=== PATIENT | female | born 1960 | race African-American/Black ===

== ENCOUNTER 2017-08-12 13:56 | Inpatient (IN) | payer OTHER ==
--- NOTE | 2017-08-12 14:22 | ED Physician Chart ---
ED Chief Complaint/HPI - Patient Information Date Seen:: 08/12/17 Time Seen:: 14:22 Chief Complaint:: Left ear pain bleeding hearing loss. Seizures History of Present Illness:: 57 yo female was brought from [facility] to ER due to new onset of left ear pain, bleeding and hearing loss. Denied any fall or head trauma. The patient had history of seizures with last seizure a week ago. Awake, alert and oriented times 3 upon black pickler. At ER, the patient stated funny taste in mouth and seizures began, off and on, total 25 minutes. ED Review of Systems - Review of Systems General/Constitutional: No fever, Weakness Skin: No bruising Head: No headache Eyes: No pain ENT: Other (Left ear hearing loss) Neck: No neck pain Cardio Vascular: No chest pain Pulmonary: No SOB GI: No nausea, No vomiting Musculoskeletal: No bone or joint pain Psychiatric: Prior psych history Neurological: Weakness, Seizure ED Past Medical History - Past Medical History Past Medical History: HTN, Asthma/COPD, CVA/TIA, Dyslipidemia, PUD/GERD, Seizures, Other (peripheral neuropathy, unsteady gait) Social History: Non Smoker, No Alcohol, No Drug Use Surgical History: other (Left AKA) Psychiatricy History: Depression Family Medical History - Family Member Mother Sister History Unknown: Yes Ethnicity: Unknown Living Status: Unknown Hx Family Cancer: (UNKNOWN) Hx Family Coronary Artery Disease: (UNKNOWN) Hx Family Congestive Heart Failure: (UNKNOWN) Hx Family Hypertension: (UNKNOWN) Hx Family Stroke: (UNKNOWN) Hx Family Diabetes: (UNKNOWN) Hx Family Seizures: (UNKNOWN) Hx Family Dementia: (UNKNOWN) Hx Family AIDS: (UNKNOWN) Hx Family COPD: (UNKNOWN) Hx Family Hepatitis: (UNKNOWN) Hx Family Psychiatric Problems: (UNKNOWN) Hx Family Tuberculosis: (UNKNOWN) Other Medical History: UNKNOWN ED Physical Exam - Physical Examination General/Constitutional: Awake Head: Atraumatic Eyes: PERRL Skin: No ecchymosis ENMT: Nasal exam nl Other ENMT comments:: Left ear tenderness with purulent drainage, impaired hearing left ear Neck: No nuchal rigidity Respiratory: No Wheeze/Rhonchi/Rales Cardio Vascular: RRR, No murmur, gallop, rubs, NL S1 S2 GI: No tenderness/rebounding/guarding Other Extremities comments:: No edema. Left AKA Other Neuro/Psych comments:: Right side weakness ED Labs/Radiology/EKG Results - Radiology Results Results: CXR: no focal consolidation CT head: left parietal and occipital encephalomalacia ED Assessment - Assessment General Assessment: Seizure Otitis media, left ear UTI Right hemiparesis Assessment/Comments:: CMP, CBC, UA Keppra level CXR, EKG CT head without contrast Ativan IM and IV Admit to ICU ED Septic Shock - . Is Septic Shock (SBP<90, OR Lactate>4 mmol\L) present?: No ED Reassessment (Disposition) - Reassessment Reassessment Condition:: Unchanged - Patient Disposition Discharge/Transfer:: Acute Care w/in this hosp Admitting Medical Physician:: Dann Sands ED Discharge Plan - Patient Disposition Admit/Discharge/Transfer: Acute Care w/in this hosp Condition at Disposition: Stable
[2017-08-12 15:41] LABS: % BASOPHILS 1.3 % (0.0-2.0); % EOSINOPHILS 6.5 % (0.0-5.0); % MONOCYTES 6.8 % (2.0-10.0); % NEUTROPHILS 58.4 % (40.0-80.0); BASOPHILE ABSOLUTE 0.1 Th/cumm (0-0.2); EOSINOPHILE ABSOLUTE 0.3 Th/cmm (0.1-0.4); HEMATOCRIT 34.2 % (41.0-60); HEMOGLOBIN 11.2 gm/dL (12-16); LYMPHOCYTE ABSOLUTE 1.3 Th/cmm (1.5-3.0); MEAN CELL VOLUME 89.1 fl (81-100); MEAN CORPUSCULAR HGB CONC 32.6 pg (28.0-36.0); MEAN PLATELET VOLUME 7.9 fl; MONOCYTE ABSOLUTE 0.3 Th/cmm (0.3-1.0); NEUTROPHILE ABSOLUTE 2.8 Th/cmm (1.8-8.0); PLATELET COUNT 165 Th/cmm (150-400); RED BLOOD COUNT 3.84 Mil/cmm (3.80-5.10); RED CELL DISTRIBUTION WIDTH 17.3 % (11.5-20.0); WHITE BLOOD COUNT 4.8 Th/cmm (4.8-10.8)
[2017-08-12 16:28] LABS: ALB/GLOB RATIO 1.2 (1.0-1.8); ALBUMIN 3.8 gm/dL (3.7-5.3); ALKALINE PHOSPHATASE 173 U/L (34-104); ANION GAP 14.6 (7.0-16.0); BILIRUBIN,TOTAL 0.2 mg/dL (0.3-1.0); BUN - UREA NITROGEN 18 mg/dL (7-25); CALCIUM SERUM 9.9 mg/dL (8.6-10.3); CHLORIDE 105 mEq/L (98-107); CREATININE - SERUM 0.7 mg/dL (0.6-1.2); GFR AFRICAN-AMERICAN > 60.0 ml/min (>90); GFR NON AFRICAN-AMERICAN > 60.0 ml/min; GLUCOSE 93 mg/dL (70-105); POTASSIUM SERUM 4.6 mEq/L (3.5-5.1); SGOT 15 U/L (13-39); SGPT/ALT 9 U/L (7-52); SODIUM SERUM 137 mEq/L (136-145)
[2017-08-12] MEDS ORDERED: cefTRIAXone 1 GM in Sodium Chloride 0.9% 50 ML IV ONE (17:34)
[2017-08-12 17:49] LABS: URINE MICROSCOPIC INDICATED? YES; URINE SOURCE CATH
[2017-08-12] MEDS ORDERED: Levofloxacin 500mg/100mL 500 MG/100 ML BAG IV ONE ×2 (17:50→17:52)
[2017-08-12 18:04] LABS: URINE COLOR YELLOW
[2017-08-12 18:05] LABS: URINE BILIRUBIN NEGATIVE (NEGATIVE); URINE BLOOD MODERATE (NEGATIVE); URINE CLARITY CLOUDY (CLEAR); URINE CLINITEST NEGATIVE (NEGATIVE); URINE GLUCOSE (UA) NEGATIVE (NEGATIVE); URINE ICTOTEST NEGATIVE (NEGATIVE); URINE KETONE NEGATIVE (NEGATIVE); URINE LEUKOCYTE ESTERASE LARGE (NEGATIVE); URINE NITRATE POSITIVE (NEGATIVE); URINE PROTEIN TRACE mg/dL (NEGATIVE); URINE UROBILINOGEN 0.2 E.U./dL (0.2 - 1.0)
[2017-08-12 18:19] LABS: URINE BACTERIA MANY /hpf (NONE SEEN); URINE EPITHELIAL CELLS MODERATE /lpf (FEW); URINE WBC >100 /hpf (0-5)
[2017-08-13] MEDS: Sodium Chloride 0.9% 1,000 ML IV SCH ×2 (02:30→11:42)
[2017-08-13 05:24] VITALS: BP 143/69
--- NOTE | 2017-08-13 09:29 | Diagnostic Imaging Report ---
CHEST X-RAY: AP view INDICATION: Shortness of breath COMPARISON: None FINDINGS: Chronic lung changes are seen with no focal consolidation or effusions. A spinal stimulator is noted. Heart size normal. Atherosclerosis of the aortic arch is noted. Note exam is limited due to rotation. Old right rib fractures are noted. No evidence of pneumothorax. IMPRESSION: No focal consolidation identified Atherosclerotic vascular disease. Postsurgical changes with spinal stimulator noted.
--- NOTE | 2017-08-13 09:59 | Diagnostic Imaging Report ---
Head CT without intravenous contrast Indication: Seizure, left ureter planing bleeding and hearing loss Comparison: None Technique: Axial images were obtained from the vertex to the skull base without IV contrast. Coronal reconstructions were made. Total DLP: [id number], [id number] FINDINGS: Exam is markedly limited as patient difficulty cooperating for the exam. 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 Atrophy is noted. The ventricles and basal cisterns are patent. No mass effect or midline shift. No gross skull fracture or focal soft tissue swelling. There is mucosal thickening of the paranasal sinuses. Mild fluid is seen within the bilateral mastoid air cells. No obvious erosions are identified. IMPRESSION: Limited exam due to motion. No evidence of gross hemorrhage. If clinically indicated short-term follow-up repeat CT exam may be obtained for further assessment Areas of encephalomalacia in the left frontal parietal and occipital lobes attributed to old infarcts. Mild atrophy Mild bilateral mastoid air cell disease. Please correlate with the clinical findings. Final results were administered to the referring team on 08/13/2017.
[2017-08-13] MEDS ORDERED: [UNRECOGNIZED DRUG - OTHER] TP PRN (11:39)
[2017-08-13] MEDS ORDERED: ZINC ACETATE TP PRN (11:39)
[2017-08-13] MEDS ORDERED: DIPHENHYDRAMINE TP PRN (11:39)
[2017-08-13] MEDS ORDERED: Non-Formulary Item 1 EA (Acetaminophen [8 Hour] 650 MG) PO PRN ×2 (11:39→11:57)
[2017-08-13] MEDS ORDERED: Hydrocodone/APAP 5mg/325mg Tab PO PRN (11:39)
--- NOTE | 2017-08-13 12:06 | History and Physical ---
History of Present Illness - HPI Vital Signs: Last Vital Signs Temp 97.3 F 08/13/17 09:00 Pulse 74 08/13/17 09:00 Resp 18 08/13/17 09:10 BP 117/61 08/13/17 09:00 Pulse Ox 99 08/13/17 09:00 Family Medical History - Family Member Mother Sister History Unknown: Yes Ethnicity: Unknown Living Status: Unknown Hx Family Cancer: (UNKNOWN) Hx Family Coronary Artery Disease: (UNKNOWN) Hx Family Congestive Heart Failure: (UNKNOWN) Hx Family Hypertension: (UNKNOWN) Hx Family Stroke: (UNKNOWN) Hx Family Diabetes: (UNKNOWN) Hx Family Seizures: (UNKNOWN) Hx Family Dementia: (UNKNOWN) Hx Family AIDS: (UNKNOWN) Hx Family COPD: (UNKNOWN) Hx Family Hepatitis: (UNKNOWN) Hx Family Psychiatric Problems: (UNKNOWN) Hx Family Tuberculosis: (UNKNOWN) Other Medical History: UNKNOWN - Medications Home Medications: Home Medication Medication Instructions Recorded Type Acetaminophen [8 Hour] 650 mg PO PRN PRN 08/12/17 History Ascorbic Acid [Vitamin C] 500 mg PO BID 08/12/17 History Atorvastatin Calcium [Lipitor] 20 mg PO HS 08/12/17 History Calcium Carb/Vit D 500mg/200U 1 tab PO BID 08/12/17 History [Oscal w/Vitamin D] Diphenhydramine HCl/Zinc Acet 0.1 % TP Q6H PRN 08/12/17 History [Benadryl 1%-0.1%] Duloxetine HCl [Cymbalta] 30 mg PO DAILY 08/12/17 History Gabapentin 300 mg PO TID 08/12/17 History Hydrocodone/APAP 5mg/325mg [[place] 1 tab PO Q4H PRN 08/12/17 History 5mg/325mg] Lactulose 20 gm PO DAILY 08/12/17 History Lamotrigine [Lamictal] 50 mg PO DAILY 08/12/17 History Levetiracetam [Keppra] 500 mg PO BID 08/12/17 History Lorazepam [Ativan] 2 mg IM Q2H PRN 08/12/17 History Melatonin 3 mg PO HS 08/12/17 History Montelukast [Singulair] 10 mg PO DAILY 08/12/17 History Multivitamin w/ Minerals 1 tab PO DAILY 08/12/17 History [Theragran M] PHENobarbital 32.4 mg PO TID 08/12/17 History Phenobarbital 64.8 mg PO TID 08/12/17 History Ranitidine HCl [Ranitidine*] 150 mg PO DAILY 08/12/17 History Rivaroxaban [Xarelto] 20 mg PO DAILY 08/12/17 History - Allergies Allergies/Adverse Reactions: Allergies Allergy/AdvReac Type Severity Reaction Status Date / Time azithromycin Allergy Verified 08/12/17 14:53 carbamazepine Allergy Verified 08/12/17 14:54 Iodinated Contrast Media - Allergy Verified 08/12/17 14:54 IV Dye Penicillins Allergy Verified 08/12/17 14:54 - Assessment Assessment: Current Active Problems Problem Status Onset LEFT EAR PAIN WITH BLOODY DRAINAGE Acute
[2017-08-13] MEDS: Levofloxacin 750mg/150mL 750 MG/150 ML BAG IV SCH (12:57)
[2017-08-13] MEDS: Calcium Carb/Vit D 500 mg/200 U Tab PO SCH (17:18)
[2017-08-13] MEDS: Atorvastatin Calcium 10 MG TAB PO SCH (20:45)
[2017-08-13] MEDS ORDERED: Levofloxacin 500mg/100mL 500 MG/100 ML BAG IV SCH (21:00)
[2017-08-13] MEDS ORDERED: Non-Formulary Item 1 EA (Atorvastatin Calcium [Lipitor] 20 MG) PO SCH (21:00)
[2017-08-13] MEDS ORDERED: Non-Formulary Item 1 EA (Melatonin [Melatonin] 3 MG) PO SCH (21:00)
[2017-08-13] MEDS ORDERED: Levetiracetam 500 mg/5mL 5mL Vial IV ONE (22:29)
[2017-08-13] MEDS ORDERED: Levetiracetam 1000mg/100mL 1,000 MG/100 ML BAG IV ONE (22:30)
--- NOTE | 2017-08-13 23:38 | Consultation ---
DATE OF CONSULTATION: 08/13/2017 NEUROLOGY CONSULT HISTORY OF PRESENT ILLNESS: The patient is a 57-year-old. The patient is in SNF. The patient brought in because the patient has left ear pain. The patient complains of bleeding in the left ear and hearing loss. In the Emergency Room, it is unclear whether the patient's case has been discussed with the ENT or no, but the patient needs an urgent ENT consult. The patient's other history: 1. The patient has history of seizures. She has not had a seizure in last 2 days. Last one was over a week or so ago. The patient has on and off history of seizures. The patient has history of previous stroke. The patient has right side weakness, very little movement of right leg. Seizures since then. 2. History of hypertension. 3. History of asthma. 4. History of chronic obstructive pulmonary disease. 5. The patient has left knee amputation. 6. The patient has a dressing over the right lower leg with cellulitis and at the foot. REVIEW OF SYSTEMS: The patient is awake. Will answer questions. Hearing reduced on the left side. No marked headache. Moving upper extremities, though some weakness in the right. Moves the left leg which has above knee amputation, but on the right leg not much movement. The patient has no chest pain, no shortness of breath, no cough, sputum or hemoptysis. MEDICATIONS: As per reconciliation. Here the patient is on lamotrigine 50 mg daily, Keppra 500 mg b.i.d., phenobarbital 64.8 mg t.i.d. The patient was given antibiotics dose in the Emergency Room. The patient is on Levaquin at the moment. PHYSICAL EXAMINATION: VITAL SIGNS: Temperature 98.4, blood pressure 118/70, pulse is 78. NECK: Supple. No neck bruits. HEART: Sounds S1, S2. LUNGS: Clear. EXTREMITIES: The patient has left above knee amputation. The patient has bandage and dressing on the right leg at the foot and ankle. Some redness in the lower leg. NEUROLOGIC: The patient is awake. She will actually answer questions. She gives me history. She is able to name simple objects, but she did not know what they are. She knew what month and what year. CRANIAL: Pupils react to light. Full eye movement. The patient has reduced hearing on the left side. On examination of the ear, there is some dry kind of crusted on the left ear. Looking at the canal, it seems to be very wet, but I do not see any obvious blood in the canal. The eardrum is very difficult to see, but seems to be very red, almost possible bleeding there, though I do not see any definite perforation. On the right side, the eardrum is okay. Pupils react to light, about 4 mm. No facial weakness. MOTOR: She lifts both arms up. Some weakness on the right. Legs, she will actually lifts the left above-knee amputation leg, but on the right she does not lift too much. Reflex is essentially absent in the right leg and very minimal in the upper extremity. INVESTIGATIONS: CT scan of head is pending. LABORATORY DATA: WBC 4.8, hemoglobin 11.2, platelets 165. Sodium 137, potassium 4.6. UA: WBC over 100. Phenobarbital level is 31. IMPRESSION: 1. Left ear possible infection, possible bleed. 2. Hearing loss, left side. The patient needs an urgent ENT consult. 3. History of seizure. The patient's last seizure was about a week or so ago. We will continue with present medications. 4. History of previous stroke. 5. The patient with UTI sepsis and possible left ear. Recommend ID consult. 6. Left above knee amputation. 7. Chronic obstructive pulmonary disease. PLAN: Continue present treatment and recommendations as above. JOB# [id number]
[2017-08-14] MEDS ORDERED: Non-Formulary Item 1 EA (Lactulose [Lactulose] 20 GM) PO SCH (09:00)
[2017-08-14] MEDS ORDERED: Non-Formulary Item 1 EA (Rivaroxaban [Xarelto] 20 MG) PO SCH (09:00)
[2017-08-14] MEDS: Calcium Carb/Vit D 500 mg/200 U Tab PO SCH ×2 (09:51→17:19)
[2017-08-14] MEDS: Multivitamin w/ Minerals Tab PO SCH (09:52)
[2017-08-14] MEDS: Levetiracetam 1000mg/100mL 1,000 MG/100 ML BAG IV SCH ×2 (09:53→17:21)
[2017-08-14] MEDS: Lactulose 10 Gm/15 mL 30mL UDC PO SCH (09:53)
[2017-08-14] MEDS: Levofloxacin 750mg/150mL 750 MG/150 ML BAG IV SCH (12:20)
[2017-08-14] MEDS ORDERED: SODIUM CHLORIDE 0.9% IV ONE (14:00)
[2017-08-14] MEDS ORDERED: PHENYTOIN IV ONE (14:00)
[2017-08-14] MEDS: Sodium Chloride 0.9% 1,000 ML IV SCH (15:05)
[2017-08-14] MEDS: Hydrocodone/APAP 5mg/325mg Tab PO PRN (15:51)
[2017-08-14] MEDS ORDERED: Meropenem 1 GM in Sodium Chloride 0.9% 100 ML IV SCH (16:30)
[2017-08-14] MEDS ORDERED: Phenytoin 50 mg/mL 5 mL Vial IV SCH (17:00)
[2017-08-14] MEDS: SODIUM CHLORIDE 0.9% IV SCH (20:45)
[2017-08-14] MEDS: PHENYTOIN SODIUM 100 MG IV SCH (20:45)
[2017-08-14] MEDS: Atorvastatin Calcium 10 MG TAB PO SCH (22:39)
[2017-08-14] MEDS: Meropenem 500 MG in Sodium Chloride 0.9% 50 ML IV SCH (22:43)
--- NOTE | 2017-08-15 00:58 | Progress Notes ---
DATE: 08/14/2017 SUBJECTIVE: The patient is lying comfortably in bed and has no complaints at this time. The patient was acutely transferred to the ICU, last seen approximately around 9 or 10 p.m. secondary to generalized seizure lasting approximately 10 minutes. Neurology was called. The patient was given a loading dose of Dilantin and she was started on Dilantin IV b.i.d. Denies fevers and chills. OBJECTIVE: VITAL SIGNS: Temp is 98 degrees, pulse 61, respirations 12, blood pressure 129/63. GENERAL: NAD. HEENT: PERRLA, EOMI. Poor dentition. NECK: Supple. Trachea midline. CARDIOVASCULAR: Regular rate and rhythm. RESPIRATORY: Clear to auscultation bilaterally. No wheezes, rales or rhonchi. ABDOMEN: Soft, nontender, nondistended. Bowel sounds x 4. SKIN: Right lower extremity infected ulceration with surrounding erythema and mild serosanguineous drainage. Left AKA. LABORATORY DATA: No new labs have been ordered. ASSESSMENT AND PLAN: Seizure disorder, Dr. Bear is following. Continue Keppra, Lamictal, lorazepam, phenobarbital and phenytoin. DVT, continue Xarelto. Muscle weakness. Physical therapy evaluation for transfer training. MDRO, E. coli ESBL UTI is resistant to Levaquin, so meropenem has been started one gram b.i.d. Hyperlipidemia, atorvastatin. Polyneuropathy. Continue Cymbalta, gabapentin. Constipation, lactulose. JOB# [id number]
[2017-08-15] MEDS: Meropenem 500 MG in Sodium Chloride 0.9% 50 ML IV SCH ×3 (06:46→22:25)
--- NOTE | 2017-08-15 09:08 | History & Physical ---
ADMIT DATE: CHIEF COMPLAINT: Left ear pain, left ear bleeding, and decreased hearing. HISTORY OF PRESENT ILLNESS: This is a 57-year-old female patient with a past medical history of seizure disorder, hypertension, left AKA and neuropathy, presented to the Emergency Department with a complaint acute left ear pain with bleeding and yellowish drainage. The patient states that the pain started abruptly while at [facility]. She denies fevers, chills or trauma preceding or following the left ear pain and bleeding. I have received a call from charge nurse, Danay at [facility] who requested to have the patient transferred out to [facility] for further evaluation. The patient states that the left ear pain has increased and that she can no longer hear out of her left ear. She is also having multiple seizures since entering the Emergency Department and is currently on Ativan for seizure breakthrough. PAST MEDICAL HISTORY: Hypertension, coronary artery disease, peripheral arterial disease, hyperlipidemia, history of CVA, seizure disorder, peripheral neuropathy, constipation, GERD, unsteady gait, muscle weakness, left AKA, major depressive disorder. FAMILY MEDICAL HISTORY: Unremarkable. SOCIAL HISTORY: Does not smoke, drink, or do drugs. The patient currently lives at [facility] in [place]. MEDICATIONS: Have been reviewed and reconciled. REVIEW OF SYSTEMS: GENERAL: No fevers, chills, or sweats. HEENT: Admits to acute left-sided ear pain described as sharp with ear bleeding and hearing loss on the left ear. She has significant left-sided tenderness. She also has tenderness directly behind the left ear. She has no difficulty swallowing, chewing, and has no visual loss. Denies cough, shortness of breath, or hemoptysis. CARDIOVASCULAR: Denies chest pain, palpitations, orthopnea. GASTROINTESTINAL: Denies abdominal pain, nausea, vomiting. GENITOURINARY: Denies dysuria, frequency, incontinence. MUSCULOSKELETAL: Admits to bilateral muscle weakness and unsteady gait. SKIN: There is a right-sided skin ulceration posterior to her right ankle. NEUROLOGIC: Admits to weakness, confusion, and numbness. PHYSICAL EXAMINATION: VITAL SIGNS: Temperature 97.3, pulse 74, respirations 18, blood pressure 117/61. Her weight is 65 kilograms. GENERAL: NAD. HEENT: PERRLA. EOMI. Poor dentition. There is blood draining from the patient's left ear. The left ear is very tender. The tympanic membrane could not be visualized. NECK: Supple, no JVD. CARDIOVASCULAR: Regular rate and rhythm. RESPIRATORY: CTA bilaterally. No wheezes, rales, or rhonchi. ABDOMEN: Soft, nontender, nondistended. Bowel sounds x 4. EXTREMITIES: Left AKA, right lower extremity chronic venous changes with an ulceration surrounding the right Achilles tendon. SKIN: Warm and dry. PSYCHIATRIC: The patient has a flat affect and appears to be depressed. ASSESSMENT: Acute mastoiditis with possible hearing loss, seizure disorder, hyperlipidemia, neuropathy, allergic rhinitis, hypertension, constipation. The patient has a known DVT. PLAN: Admit to telemetry. Restart patient's home seizure medications. Neurology has been consulted. Ativan for breakthrough seizures. Xarelto for DVT, Singulair for allergic rhinitis. Lorazepam for breakthrough seizures. Levaquin has been increased to 750 mg for possible mastoiditis. Continue Cymbalta for polyneuropathy. Lipitor for hyperlipidemia. JOB# [id number]
[2017-08-15] MEDS: PHENYTOIN SODIUM 100 MG IV SCH ×2 (09:29→23:09)
[2017-08-15] MEDS: SODIUM CHLORIDE 0.9% IV SCH ×2 (09:29→23:09)
[2017-08-15] MEDS: Lactulose 10 Gm/15 mL 30mL UDC PO SCH (09:30)
[2017-08-15] MEDS: Multivitamin w/ Minerals Tab PO SCH (09:31)
[2017-08-15] MEDS: Calcium Carb/Vit D 500 mg/200 U Tab PO SCH ×2 (09:31→18:05)
[2017-08-15] MEDS: Levetiracetam 1000mg/100mL 1,000 MG/100 ML BAG IV SCH ×2 (09:35→16:09)
[2017-08-15] MEDS ORDERED: DEXTROSE 5% IV SCH (15:30)
[2017-08-15] MEDS ORDERED: LEVETIRACETAM IV SCH (15:30)
[2017-08-15 16:22] LABS: % BASOPHILS 0.1 % (0.0-2.0); % EOSINOPHILS 6.8 % (0.0-5.0); % LYMPHOCYTES 16.6 % (20.0-50.0); % MONOCYTES 5.8 % (2.0-10.0); % NEUTROPHILS 70.7 % (40.0-80.0); EOSINOPHILE ABSOLUTE 0.4 Th/cmm (0.1-0.4); HEMATOCRIT 32.8 % (41.0-60); HEMOGLOBIN 10.9 gm/dL (12-16); MEAN CELL VOLUME 89.5 fl (81-100); MEAN CORPUSCULAR HEMOGLOBIN 29.6 pg (27.0-31.0); MEAN CORPUSCULAR HGB CONC 33.1 pg (28.0-36.0); MEAN PLATELET VOLUME 8.1 fl; MONOCYTE ABSOLUTE 0.3 Th/cmm (0.3-1.0); NEUTROPHILE ABSOLUTE 4.2 Th/cmm (1.8-8.0); PLATELET COUNT 149 Th/cmm (150-400); RED BLOOD COUNT 3.67 Mil/cmm (3.80-5.10); RED CELL DISTRIBUTION WIDTH 16.9 % (11.5-20.0)
[2017-08-15 16:29] LABS: WHITE BLOOD COUNT 5.9 Th/cmm (4.8-10.8)
[2017-08-15 16:37] LABS: ANION GAP 11.7 (7.0-16.0); BUN - UREA NITROGEN 10 mg/dL (7-25); CARBON DIOXIDE 24.2 mEq/L (21.0-31.0); CHLORIDE 107 mEq/L (98-107); CREATININE - SERUM 0.5 mg/dL (0.6-1.2); GFR AFRICAN-AMERICAN > 60.0 ml/min (>90); GFR NON AFRICAN-AMERICAN > 60.0 ml/min; GLUCOSE 108 mg/dL (70-105); POTASSIUM SERUM 3.9 mEq/L (3.5-5.1); SODIUM SERUM 139 mEq/L (136-145)
[2017-08-15] MEDS: Atorvastatin Calcium 10 MG TAB PO SCH (23:07)
[2017-08-16] MEDS: Meropenem 500 MG in Sodium Chloride 0.9% 50 ML IV SCH ×3 (05:17→21:45)
--- NOTE | 2017-08-16 07:20 | General Progress Note ---
Subjective - Review of Systems Service Date: 08/16/17 Subjective: Pt seen and eval. Has been exhibiting psychotic behavior at times. Can be very agitated. On IV Meropenam for esbl uti. On keppra for sz. No n,v,d or cp. No pain. No sz last night. Objective - Results Result Diagrams: 08/15/17 15:44 08/15/17 06:00 Recent Labs: Laboratory Last Values WBC 5.9 Th/cmm (4.8-10.8) D 08/15/17 15:44 RBC 3.67 Mil/cmm (3.80-5.10) L 08/15/17 15:44 Hgb 10.9 gm/dL (12-16) L 08/15/17 15:44 Hct 32.8 % (41.0-60) L 08/15/17 15:44 MCV 89.5 fl (81-100) 08/15/17 15:44 MCH 29.6 pg (27.0-31.0) 08/15/17 15:44 MCHC Differential 33.1 pg (28.0-36.0) 08/15/17 15:44 RDW 16.9 % (11.5-20.0) 08/15/17 15:44 Plt Count 149 Th/cmm (150-400) L 08/15/17 15:44 MPV 8.1 fl 08/15/17 15:44 Neutrophils % 70.7 % (40.0-80.0) 08/15/17 15:44 Lymphocytes % 16.6 % (20.0-50.0) L 08/15/17 15:44 Monocytes % 5.8 % (2.0-10.0) 08/15/17 15:44 Eosinophils % 6.8 % (0.0-5.0) H 08/15/17 15:44 Basophils % 0.1 % (0.0-2.0) 08/15/17 15:44 Sodium 139 mEq/L (136-145) 08/15/17 06:00 Potassium 3.9 mEq/L (3.5-5.1) 08/15/17 06:00 Chloride 107 mEq/L (98-107) 08/15/17 06:00 Carbon Dioxide 24.2 mEq/L (21.0-31.0) 08/15/17 06:00 Anion Gap 11.7 (7.0-16.0) 08/15/17 06:00 BUN 10 mg/dL (7-25) 08/15/17 06:00 Creatinine 0.5 mg/dL (0.6-1.2) L 08/15/17 06:00 Est GFR ( Amer) > 60.0 ml/min (>90) 08/15/17 06:00 Est GFR (Non-Af Amer) > 60.0 ml/min 08/15/17 06:00 BUN/Creatinine Ratio 20.0 08/15/17 06:00 Glucose 108 mg/dL (70-105) H 08/15/17 06:00 POC Glucose 99 MG/DL (70 - 105) 08/13/17 21:50 Calcium 10.0 mg/dL (8.6-10.3) 08/15/17 06:00 Total Bilirubin 0.2 mg/dL (0.3-1.0) L 08/12/17 15:33 AST 15 U/L (13-39) 08/12/17 15:33 ALT 9 U/L (7-52) 08/12/17 15:33 Alkaline Phosphatase 173 U/L (34-104) H 08/12/17 15:33 Creatine Kinase 32 U/L (30-223) 08/12/17 15:33 Troponin I 0.01 ng/mL (0.01-0.05) 08/12/17 15:33 B-Natriuretic Peptide 25.1 pg/mL (5.0-100.0) 08/12/17 15:33 Total Protein 7.0 gm/dL (6.0-8.3) 08/12/17 15:33 Albumin 3.8 gm/dL (3.7-5.3) 08/12/17 15:33 Globulin 3.2 gm/dL 08/12/17 15:33 Albumin/Globulin Ratio 1.2 (1.0-1.8) 08/12/17 15:33 Urine Source CATH 08/12/17 17:00 Urine Color YELLOW 08/12/17 17:00 Urine Clarity CLOUDY (CLEAR) H 08/12/17 17:00 Urine pH 6.0 (4.6 - 8.0) 08/12/17 17:00 Ur Specific [place] 1.010 (1.005-1.030) 08/12/17 17:00 Urine Protein TRACE mg/dL (NEGATIVE) 08/12/17 17:00 Urine Glucose (UA) NEGATIVE mg/dL (NEGATIVE) 08/12/17 17:00 Urine Clinitest NEGATIVE mg/dL (NEGATIVE) 08/12/17 17:00 Urine Ketones NEGATIVE mg/dL (NEGATIVE) 08/12/17 17:00 Urine Blood MODERATE (NEGATIVE) H 08/12/17 17:00 Urine Nitrate POSITIVE (NEGATIVE) H 08/12/17 17:00 Urine Bilirubin NEGATIVE (NEGATIVE) 08/12/17 17:00 Urine Ictotest NEGATIVE (NEGATIVE) 08/12/17 17:00 Urine Urobilinogen 0.2 E.U./dL (0.2 - 1.0) 08/12/17 17:00 Ur Leukocyte Esterase LARGE (NEGATIVE) H 08/12/17 17:00 Urine RBC 5-10 /hpf (0-5) H 08/12/17 17:00 Urine WBC >100 /hpf (0-5) H 08/12/17 17:00 Ur Epithelial Cells MODERATE /lpf (FEW) 08/12/17 17:00 Urine Bacteria MANY /hpf (NONE SEEN) H 08/12/17 17:00 Phenytoin 6.7 ug/ml (10.0-20.0) L 08/15/17 15:44 Phenobarbital 31.0 ug/ml (10-40.0) 08/12/17 15:33 - Physical Exam Vitals and I&O: Vital Signs Temp 97.4 F 08/16/17 00:00 Pulse 67 08/16/17 03:00 Resp 13 08/16/17 03:00 BP 92/55 08/16/17 03:00 Pulse Ox 100 08/16/17 03:00 Intake & Output 08/15/17 08/16/17 08/16/17 18:59 06:59 18:59 Intake Total 250 350 Balance 250 350 Weight (lbs) 65.771 kg Intake: Intake, IV Amount 250 50 Levetiracetam 1000mg/ 100 100mL 1,000 mg In 100 ml @ 200 mls/hr IV BID [facility] Rx#:[id number] Meropenem 500 mg In 100 50 Sodium Chloride 0.9% 50 ml @ 100 mls/hr IV Q8HR [facility] Rx#:[id number] Phenytoin 200 mg In 50 Sodium Chloride 0.9% 46 ml @ 100 mls/hr IV Q12HR [facility] Rx#:[id number] Oral 300 Other: # Voids 10 Stool Characteristics Soft Soft Active Medications: Current Medications Acetaminophen (Tylenol) 650 mg PO Q6HR PRN PRN Reason: Pain (Mild) Stop: 10/12/17 12:05 Acetaminophen/Hydrocodone Bitart ([place] 5mg/325mg) 1 tab PO Q4H PRN PRN Reason: mod pain Stop: 10/12/17 11:38 Last Admin: 08/14/17 15:51 Dose: 1 tab Ascorbic Acid (Vitamin C) 500 mg PO BID JULIETH Stop: 10/12/17 16:59 Last Admin: 08/15/17 18:05 Dose: 500 mg Atorvastatin Calcium (Lipitor) 20 mg PO HS JULIETH Stop: 10/12/17 20:59 Last Admin: 08/15/17 23:07 Dose: 20 mg Calcium/Vitamin D (Oscal W/Vitamin D) 1 tab PO BID JULIETH Stop: 10/12/17 16:59 Last Admin: 08/15/17 18:05 Dose: 1 tab Duloxetine HCl (Cymbalta) 30 mg PO DAILY JULIETH PRN Reason: Protocol Stop: 10/13/17 08:59 Last Admin: 08/15/17 09:28 Dose: 30 mg Gabapentin (Neurontin) 300 mg PO TID JULIETH Stop: 10/12/17 13:59 Last Admin: 08/15/17 23:08 Dose: 300 mg Sodium Chloride (Nacl 0.9%) 1,000 mls @ 100 mls/hr IV .Q10H [facility] Stop: 10/11/17 22:28 Last Admin: 08/14/17 15:05 Dose: 100 mls/hr Levetiracetam (Keppra Pb) 1,000 mg in 100 mls @ 200 mls/hr IV BID JULIETH Stop: 10/13/17 08:59 Last Admin: 08/15/17 16:09 Dose: 200 mls/hr Phenytoin 200 mg/ Sodium (Chloride) 50 mls @ 100 mls/hr IV Q12HR JULIETH Stop: 10/13/17 20:59 Last Admin: 08/15/17 23:09 Dose: 100 mls/hr Meropenem 500 mg/ Sodium (Chloride) 50 mls @ 100 mls/hr IV Q8HR [facility] Stop: 10/13/17 20:59 Last Admin: 08/16/17 05:17 Dose: 100 mls/hr Lacosamide (Vimpat) 100 mg PO BID [facility] Stop: 10/14/17 16:59 Last Admin: 08/15/17 18:07 Dose: 100 mg Lactulose (Cephulac) 20 gm PO DAILY JULIETH Stop: 10/13/17 08:59 Last Admin: 08/15/17 09:30 Dose: 20 gm Lamotrigine (Lamictal) 50 mg PO DAILY JULIETH PRN Reason: Protocol Stop: 10/13/17 08:59 Last Admin: 08/15/17 09:31 Dose: 50 mg Lorazepam (Ativan) 1 mg IVP Q2HR PRN; Protocol PRN Reason: FOR SEIZURES Stop: 10/12/17 03:23 Last Admin: 08/16/17 03:36 Dose: 1 mg Lorazepam (Ativan) 2 mg IM Q2H PRN; Protocol PRN Reason: Seizure Stop: 10/12/17 11:38 Last Admin: 08/15/17 18:05 Dose: 2 mg Lorazepam (Ativan) 1 mg IVP Q30M PRN; Protocol PRN Reason: siezure Stop: 10/12/17 22:01 Last Admin: 08/14/17 23:05 Dose: 1 mg Montelukast Sodium (Singulair) 10 mg PO DAILY [facility] Stop: 10/13/17 08:59 Last Admin: 08/15/17 09:31 Dose: 10 mg Phenobarbital (Phenobarbital) 64.8 mg PO TID [facility] Stop: 10/12/17 08:59 Last Admin: 08/15/17 22:55 Dose: 64.8 mg Rivaroxaban (Xarelto) 20 mg PO QDPC [facility] Stop: 10/13/17 08:29 Last Admin: 08/15/17 09:31 Dose: 20 mg General: No acute distress HEENT: Atraumatic, PERRLA, EOMI Neck: Supple, JVD Cardiovascular: Regular rate, Normal S1, Normal S2 Lungs: Clear to auscultation Abdomen: Bowel sounds, Soft Assessment/Plan - Problem List Patient Problems: All Active Problems LEFT EAR PAIN WITH BLOODY DRAINAGE (Acute) - Assessment Assessment: BT Sz Sz DO per hx AME MDRO ESBL UTI Dsylipid - Plan Plan: Dr. Bear following. Pt is stable to be transferred out of ICU. Continue IV Meropenam. FU on labs. Continue IV fluids.
--- NOTE | 2017-08-16 08:16 | Diagnostic Imaging Report ---
Right lower extremity DVT study HISTORY: Pain, history of DVT, history of left leg amputation COMPARISON: None Technique: Longitudinal and transverse sonographic images of the right lower extremity veins were obtained with doppler analysis. FINDINGS: There is normal compressibility, augmentation and phasicity of the right common femoral, superficial femoral, popliteal, and posterior tibial veins. No thrombus is visualized. IMPRESSION: No evidence of thrombus within the right lower extremity veins.
[2017-08-16] MEDS: Atorvastatin Calcium 10 MG TAB PO SCH (08:45)
[2017-08-16] MEDS: Levetiracetam 1000mg/100mL 1,000 MG/100 ML BAG IV SCH ×2 (09:03→17:02)
[2017-08-16] MEDS: Multivitamin w/ Minerals Tab PO SCH (09:30)
[2017-08-16] MEDS: Calcium Carb/Vit D 500 mg/200 U Tab PO SCH ×2 (09:39→17:03)
[2017-08-16] MEDS: Lactulose 10 Gm/15 mL 30mL UDC PO SCH (09:41)
[2017-08-16] MEDS: PHENYTOIN SODIUM 100 MG IV SCH ×2 (09:42→21:45)
[2017-08-16] MEDS: SODIUM CHLORIDE 0.9% IV SCH ×2 (09:42→21:45)
[2017-08-16] MEDS: Valproate Sodium 1,000 MG in Sodium Chloride 0.9% 100 ML IV SCH ×3 (12:59→21:40)
[2017-08-17] MEDS: Meropenem 500 MG in Sodium Chloride 0.9% 50 ML IV SCH ×3 (05:08→20:32)
[2017-08-17 06:22] LABS: % BASOPHILS 0.6 % (0.0-2.0); % EOSINOPHILS 7.9 % (0.0-5.0); % LYMPHOCYTES 21.5 % (20.0-50.0); % MONOCYTES 5.8 % (2.0-10.0); % NEUTROPHILS 64.2 % (40.0-80.0); EOSINOPHILE ABSOLUTE 0.5 Th/cmm (0.1-0.4); HEMATOCRIT 30.5 % (41.0-60); HEMOGLOBIN 10.1 gm/dL (12-16); LYMPHOCYTE ABSOLUTE 1.2 Th/cmm (1.5-3.0); MEAN CELL VOLUME 89.3 fl (81-100); MEAN CORPUSCULAR HEMOGLOBIN 29.5 pg (27.0-31.0); MONOCYTE ABSOLUTE 0.3 Th/cmm (0.3-1.0); NEUTROPHILE ABSOLUTE 3.7 Th/cmm (1.8-8.0); PLATELET COUNT 144 Th/cmm (150-400); RED BLOOD COUNT 3.41 Mil/cmm (3.80-5.10); RED CELL DISTRIBUTION WIDTH 16.7 % (11.5-20.0); WHITE BLOOD COUNT 5.7 Th/cmm (4.8-10.8)
[2017-08-17 06:50] LABS: ANION GAP 7.7 (7.0-16.0); BUN - UREA NITROGEN 13 mg/dL (7-25); CALCIUM SERUM 9.6 mg/dL (8.6-10.3); CARBON DIOXIDE 29.5 mEq/L (21.0-31.0); CHLORIDE 107 mEq/L (98-107); CREATININE - SERUM 0.6 mg/dL (0.6-1.2); GFR AFRICAN-AMERICAN > 60.0 ml/min (>90); GFR NON AFRICAN-AMERICAN > 60.0 ml/min; GLUCOSE 112 mg/dL (70-105); POTASSIUM SERUM 4.2 mEq/L (3.5-5.1); SODIUM SERUM 140 mEq/L (136-145)
[2017-08-17] MEDS: Lactulose 10 Gm/15 mL 30mL UDC PO SCH (09:14)
[2017-08-17] MEDS: Calcium Carb/Vit D 500 mg/200 U Tab PO SCH ×2 (09:15→16:29)
[2017-08-17] MEDS: Multivitamin w/ Minerals Tab PO SCH (09:15)
--- NOTE | 2017-08-17 09:46 | General Progress Note ---
Subjective - Review of Systems Service Date: 08/17/17 Subjective: Pt seen and eval. More calm and collected today. Also awake and alert, which is a positive change from yesterday. No IV access as of now. Sx has been consulted. Pt had a possible BT sz last night. She agrees to take her sz meds orally. On IV Meropenam for esbl uti. Added Vanco today for the Staph. No n,v,d or cp. No pain. Objective - Results Result Diagrams: 08/17/17 06:10 08/17/17 06:10 Recent Labs: Laboratory Last Values WBC 5.7 Th/cmm (4.8-10.8) 08/17/17 06:10 RBC 3.41 Mil/cmm (3.80-5.10) L 08/17/17 06:10 Hgb 10.1 gm/dL (12-16) L 08/17/17 06:10 Hct 30.5 % (41.0-60) L 08/17/17 06:10 MCV 89.3 fl (81-100) 08/17/17 06:10 MCH 29.5 pg (27.0-31.0) 08/17/17 06:10 MCHC Differential 33.0 pg (28.0-36.0) 08/17/17 06:10 RDW 16.7 % (11.5-20.0) 08/17/17 06:10 Plt Count 144 Th/cmm (150-400) L 08/17/17 06:10 MPV 8.0 fl 08/17/17 06:10 Neutrophils % 64.2 % (40.0-80.0) 08/17/17 06:10 Lymphocytes % 21.5 % (20.0-50.0) 08/17/17 06:10 Monocytes % 5.8 % (2.0-10.0) 08/17/17 06:10 Eosinophils % 7.9 % (0.0-5.0) H 08/17/17 06:10 Basophils % 0.6 % (0.0-2.0) 08/17/17 06:10 Sodium 140 mEq/L (136-145) 08/17/17 06:10 Potassium 4.2 mEq/L (3.5-5.1) 08/17/17 06:10 Chloride 107 mEq/L (98-107) 08/17/17 06:10 Carbon Dioxide 29.5 mEq/L (21.0-31.0) 08/17/17 06:10 Anion Gap 7.7 (7.0-16.0) 08/17/17 06:10 BUN 13 mg/dL (7-25) 08/17/17 06:10 Creatinine 0.6 mg/dL (0.6-1.2) 08/17/17 06:10 Est GFR ( Amer) > 60.0 ml/min (>90) 08/17/17 06:10 Est GFR (Non-Af Amer) > 60.0 ml/min 08/17/17 06:10 BUN/Creatinine Ratio 21.7 08/17/17 06:10 Glucose 112 mg/dL (70-105) H 08/17/17 06:10 POC Glucose 99 MG/DL (70 - 105) 08/13/17 21:50 Calcium 9.6 mg/dL (8.6-10.3) 08/17/17 06:10 Total Bilirubin 0.2 mg/dL (0.3-1.0) L 08/12/17 15:33 AST 15 U/L (13-39) 08/12/17 15:33 ALT 9 U/L (7-52) 08/12/17 15:33 Alkaline Phosphatase 173 U/L (34-104) H 08/12/17 15:33 Creatine Kinase 32 U/L (30-223) 08/12/17 15:33 Troponin I 0.01 ng/mL (0.01-0.05) 08/12/17 15:33 B-Natriuretic Peptide 25.1 pg/mL (5.0-100.0) 08/12/17 15:33 Total Protein 7.0 gm/dL (6.0-8.3) 08/12/17 15:33 Albumin 3.8 gm/dL (3.7-5.3) 08/12/17 15:33 Globulin 3.2 gm/dL 08/12/17 15:33 Albumin/Globulin Ratio 1.2 (1.0-1.8) 08/12/17 15:33 Urine Source CATH 08/12/17 17:00 Urine Color YELLOW 08/12/17 17:00 Urine Clarity CLOUDY (CLEAR) H 08/12/17 17:00 Urine pH 6.0 (4.6 - 8.0) 08/12/17 17:00 Ur Specific [place] 1.010 (1.005-1.030) 08/12/17 17:00 Urine Protein TRACE mg/dL (NEGATIVE) 08/12/17 17:00 Urine Glucose (UA) NEGATIVE mg/dL (NEGATIVE) 08/12/17 17:00 Urine Clinitest NEGATIVE mg/dL (NEGATIVE) 08/12/17 17:00 Urine Ketones NEGATIVE mg/dL (NEGATIVE) 08/12/17 17:00 Urine Blood MODERATE (NEGATIVE) H 08/12/17 17:00 Urine Nitrate POSITIVE (NEGATIVE) H 08/12/17 17:00 Urine Bilirubin NEGATIVE (NEGATIVE) 08/12/17 17:00 Urine Ictotest NEGATIVE (NEGATIVE) 08/12/17 17:00 Urine Urobilinogen 0.2 E.U./dL (0.2 - 1.0) 08/12/17 17:00 Ur Leukocyte Esterase LARGE (NEGATIVE) H 08/12/17 17:00 Urine RBC 5-10 /hpf (0-5) H 08/12/17 17:00 Urine WBC >100 /hpf (0-5) H 08/12/17 17:00 Ur Epithelial Cells MODERATE /lpf (FEW) 08/12/17 17:00 Urine Bacteria MANY /hpf (NONE SEEN) H 08/12/17 17:00 Phenytoin 6.7 ug/ml (10.0-20.0) L 08/15/17 15:44 Phenobarbital 31.0 ug/ml (10-40.0) 08/12/17 15:33 - Physical Exam Vitals and I&O: Vital Signs Temp 96.5 F 08/17/17 05:00 Pulse 67 08/17/17 07:56 Resp 14 08/17/17 07:56 BP 92/44 08/17/17 06:00 Pulse Ox 98 08/17/17 07:56 Intake & Output 08/16/17 08/17/17 08/17/17 18:59 06:59 18:59 Intake Total 400 1000 Output Total 1250 800 Balance -850 200 Weight (lbs) 64.41 kg 64.41 kg Intake: Intake, IV Amount 100 Levetiracetam 1000mg/ 100 100mL 1,000 mg In 100 ml @ 200 mls/hr IV BID [facility] Rx#:[id number] Oral 300 800 Other 200 Output: Urine 1250 800 Other: # Bowel Movements 0 Stool Characteristics Soft Soft Active Medications: Current Medications Acetaminophen (Tylenol) 650 mg PO Q6HR PRN PRN Reason: Pain (Mild) Stop: 10/12/17 12:05 Acetaminophen/Hydrocodone Bitart ([place] 5mg/325mg) 1 tab PO Q4H PRN PRN Reason: mod pain Stop: 10/12/17 11:38 Last Admin: 08/14/17 15:51 Dose: 1 tab Ascorbic Acid (Vitamin C) 500 mg PO BID [facility] Stop: 10/12/17 16:59 Last Admin: 08/17/17 09:15 Dose: 500 mg Atorvastatin Calcium (Lipitor) 20 mg PO HS [facility] Stop: 10/12/17 20:59 Last Admin: 08/16/17 08:45 Dose: 20 mg Calcium/Vitamin D (Oscal W/Vitamin D) 1 tab PO BID JULI[facility] Stop: 10/12/17 16:59 Last Admin: 08/17/17 09:15 Dose: 1 tab Duloxetine HCl (Cymbalta) 30 mg PO DAILY JULIETH PRN Reason: Protocol Stop: 10/13/17 08:59 Last Admin: 08/17/17 09:17 Dose: 30 mg Gabapentin (Neurontin) 300 mg PO TID [facility] Stop: 10/12/17 13:59 Last Admin: 08/17/17 09:15 Dose: 300 mg Sodium Chloride (Nacl 0.9%) 1,000 mls @ 100 mls/hr IV .Q10H [facility] Stop: 10/11/17 22:28 Last Admin: 08/14/17 15:05 Dose: 100 mls/hr Levetiracetam (Keppra Pb) 1,000 mg in 100 mls @ 200 mls/hr IV BID [facility] Stop: 10/13/17 08:59 Last Admin: 08/16/17 17:02 Dose: 200 mls/hr Phenytoin 200 mg/ Sodium (Chloride) 50 mls @ 100 mls/hr IV Q12HR [facility] Stop: 10/13/17 20:59 Last Admin: 08/16/17 21:45 Dose: Not Given Meropenem 500 mg/ Sodium (Chloride) 50 mls @ 100 mls/hr IV Q8HR [facility] Stop: 10/13/17 20:59 Last Admin: 08/17/17 05:08 Dose: Not Given Valproate Sodium 1,000 mg/ (Sodium Chloride) 110 mls @ 100 mls/hr IV Q12HR [facility] Stop: 10/15/17 12:59 Last Admin: 08/16/17 21:40 Dose: Not Given Lacosamide (Vimpat) 100 mg PO BID [facility] Stop: 10/14/17 16:59 Last Admin: 08/17/17 09:14 Dose: 100 mg Lactulose (Cephulac) 20 gm PO DAILY [facility] Stop: 10/13/17 08:59 Last Admin: 08/17/17 09:14 Dose: 20 gm Lamotrigine (Lamictal) 50 mg PO DAILY JULIETH PRN Reason: Protocol Stop: 10/13/17 08:59 Last Admin: 08/17/17 09:14 Dose: 50 mg Lorazepam (Ativan) 1 mg IVP Q30M PRN; Protocol PRN Reason: siezure Stop: 10/12/17 22:01 Last Admin: 08/14/17 23:05 Dose: 1 mg Miscellaneous (Vancomycin Iv Per Pharmacy) 1 ea [facility] PRN PRN PRN Reason: PROTOCOL Stop: 10/16/17 09:29 Montelukast Sodium (Singulair) 10 mg PO DAILY JULI[facility] Stop: 10/13/17 08:59 Last Admin: 08/17/17 09:14 Dose: 10 mg Phenobarbital (Phenobarbital) 64.8 mg PO TID [facility] Stop: 10/12/17 08:59 Last Admin: 08/17/17 09:14 Dose: 64.8 mg Rivaroxaban (Xarelto) 20 mg PO QDPC [facility] Stop: 10/13/17 08:29 Last Admin: 08/17/17 09:15 Dose: 20 mg General: Alert, Cooperative, No acute distress HEENT: Atraumatic, PERRLA, EOMI Neck: Supple, JVD Cardiovascular: Regular rate, Normal S1, Normal S2 Lungs: Clear to auscultation Abdomen: Bowel sounds, Soft Other physical findings: Ears: Pt was diagnosed with left ear infection by the neurologist. She states it was been uncomfortable. I looked in her ear with an otoscope. There is no bleeding or discharge. No pain with tugging of the earlobe. Also, TM is visible without any inflammation. Assessment/Plan - Problem List Patient Problems: All Active Problems LEFT EAR PAIN WITH BLOODY DRAINAGE (Acute) - Assessment Assessment: BT Sz Sz DO per hx AME R foot wound infection with Pseudomonas [place] and Staph Aureus MDRO ESBL UTI Dsylipid - Plan Plan: Dr. Bear following. Tried to change IV sz meds to PO while we wait for picc line or central line. Pt initially agreed, but decided to refuse again. I've signed consents again. Pt is awake and alert today, and she agrees to central or picc line. Discussed culture reports with pharmacist. Added Vanco to cover the Staph Aureus. She's on IV Meropenam as well. Also, I looked in her ears with an otoscope. TM are clear BL and there is no discharge or inflammation.
--- NOTE | 2017-08-17 11:52 | Consultation ---
DATE OF CONSULTATION: 08/17/2017 AGE: 57. SEX: Female. PHYSICIAN: Dr. Lewis. RIVETER: Dr. Barnett. TYPE OF THE REPORT: Psychiatric consult. REASON FOR THE CONSULT: Depression. HISTORY OF PRESENT ILLNESS: The patient is a 57-year-old female who was admitted to the hospital because of earache. The patient noticed to be uncooperative and has been depressed and told staff that she wants to . Chart reviewed and interviewed records and discussed condition with the staff. The patient currently is sedated and sleepy and most of the information obtained from my review. The patient has been depressed and she told the staff that she wants to . She also has not been cooperative or compliant with taking her medications because of her depression and unknown other reasons looks like she is giving up on life. No known patient have any history of psychiatric treatment, but she has history of seizure disorder and she is refusing to take seizure medications. Also, ____ that the patient has left ear pain and questionable that she might have some ear bleeding ____. PAST PSYCHIATRIC HISTORY: Not clear if the patient did not have any history of psychiatric treatment, but it seemed that the patient has been very depressed, which might be related to her medical problems. PAST MEDICAL HISTORY: The patient has history of seizure disorder as well as hypertension, asthma and has below left knee amputation. The patient also has right lower leg cellulitis ____. SOCIAL HISTORY: No known alcohol or drug use at this time. MENTAL STATUS EXAM: Could not perform the examination of the patient at this time, because the patient is ____ my questions. ASSESSMENT: PRIMARY DIAGNOSIS: Major depression, severe. TREATMENT PLAN: We will reevaluate the patient for possible ____ patient's medications. Also, we will work with other physicians involved in her treatment in order to obtain full evaluation and also to come to a conclusion about her medical condition and medical problems. Thanks Dr. Lewis and we will follow up with you. JOB# [id number]
--- NOTE | 2017-08-17 12:00 | Progress Notes ---
DATE: SUBJECTIVE: The patient was seen and evaluated, and is resting comfortably in bed. The patient is to be downgraded from the ICU. She did not experience any related seizure activity at this time since moving to the ICU and having Dilantin added. Neurology is following. Continue her home medications for seizures. OBJECTIVE: VITAL SIGNS: Temperature 96.6, pulse 63, blood pressure 115/50, and the respiratory rate is 16. GENERAL: NAD. HEENT: PERRLA, EOMI. Poor dentition. NECK: Supple. Trachea midline. CARDIOVASCULAR: Regular rate and rhythm. RESPIRATORY: CTA bilaterally. No wheezes, rales or rhonchi. ABDOMEN: Soft, nontender, nondistended. Bowel sounds x 4. SKIN: The right lower extremity has small superficial ulcerations with surrounding erythema and clear drainage, and the foot is very tender to palpation. LABORATORY DATA: No recent labs have been able to be drawn because the patient has refused. ASSESSMENT AND PLAN: Seizure disorder. Dr. Bear is following. Continue Keppra, Lamictal, lorazepam, phenobarbital, and phenytoin. The patient has a history of DVT, continue Xarelto. Muscle weakness. Physical therapy for transfer training. She has MDRO, E coli, ESBL UTI and she is currently on meropenem; hyperlipidemia, atorvastatin; polyneuropathy, continue Cymbalta, gabapentin; constipation, lactulose; right lower extremity foot ulceration, aerobic and anaerobic cultures were taken. Localized wound care has been ordered. Ultrasound arterial and venous have been ordered to assess the patient's blood flow and see if the patient also has any underlying unknown DVTs. JOB# [id number]
--- NOTE | 2017-08-17 13:43 | Progress Notes ---
DATE: 08/16/2017 SUBJECTIVE: The patient in ICU. The patient had recurrent seizures; however, seizure somewhat unusual. The patient will say before the seizure that she is going to have one, then has seizures kind of unusual movements. No tongue biting. The patient then subsequent to the seizure is awake, alert. She is able to talk okay afterwards. She has number of days. The patient on multiple medications at the moment. OBJECTIVE: VITAL SIGNS: Temperature 98.4, blood pressure 130/70, and pulse 74. NECK: Supple. No neck bruits. Cardiovascular: Heart sounds S1 and S2. LUNGS: Clear. NEUROLOGICAL: Awake, alert, ____. She answers questions appropriately. Speech normal. MOTOR: She will lift both arms and she lifts both legs up. ASSESSMENT AND PLAN: Question of possible seizures though question of possible pseudoseizure. We will continue present medications including Depacon and Keppra. I am going to hold of Ativan for the time being. JOB# [id number]
[2017-08-17] MEDS: PHENYTOIN SODIUM 100 MG IV SCH ×2 (14:13→20:46)
[2017-08-17] MEDS: SODIUM CHLORIDE 0.9% IV SCH ×2 (14:13→20:46)
[2017-08-17] MEDS: Valproate Sodium 1,000 MG in Sodium Chloride 0.9% 100 ML IV SCH ×2 (14:14→22:00)
--- NOTE | 2017-08-17 14:17 | Diagnostic Imaging Report ---
CHEST X-RAY: AP view INDICATION: Pain rule out pneumothorax COMPARISON: Chest x-ray 08/12/2017 FINDINGS: There is no evidence of a pneumothorax. Chronic lung changes are noted with no focal effusions. There appear to be old right rib fractures. Postsurgical changes are noted. Heart size normal. Atherosclerosis is noted. IMPRESSION: No evidence of a pneumothorax. Chronic lung changes with no focal consolidation identified.
--- NOTE | 2017-08-17 14:18 | Diagnostic Imaging Report ---
CHEST X-RAY: AP view INDICATION: Status post central line placement COMPARISON: Chest x-ray earlier the same day FINDINGS: Left IJ central line has been place with tip in the region of left brachiocephalic vein. No evidence of a gross pneumothorax. No focal consolidation or effusions. Heart size is normal. IMPRESSION: Left IJ central line with tip in the region of left brachiocephalic vein. No gross pneumothorax identified. Chronic lung changes with no focal consolidation identified.
[2017-08-17] MEDS: Levetiracetam 1000mg/100mL 1,000 MG/100 ML BAG IV SCH (14:19)
--- NOTE | 2017-08-17 14:28 | General Progress Note ---
Subjective - Review of Systems Service Date: 08/17/17 Events since last encounter: ulcer over right medial malleolus, present for several months foot is viable, no sign of ischemia suggest local wound care as I do thnk the granulation is excessive Objective - Results Result Diagrams: 08/17/17 06:10 08/17/17 06:10 Recent Labs: Laboratory Last Values WBC 5.7 Th/cmm (4.8-10.8) 08/17/17 06:10 RBC 3.41 Mil/cmm (3.80-5.10) L 08/17/17 06:10 Hgb 10.1 gm/dL (12-16) L 08/17/17 06:10 Hct 30.5 % (41.0-60) L 08/17/17 06:10 MCV 89.3 fl (81-100) 08/17/17 06:10 MCH 29.5 pg (27.0-31.0) 08/17/17 06:10 MCHC Differential 33.0 pg (28.0-36.0) 08/17/17 06:10 RDW 16.7 % (11.5-20.0) 08/17/17 06:10 Plt Count 144 Th/cmm (150-400) L 08/17/17 06:10 MPV 8.0 fl 08/17/17 06:10 Neutrophils % 64.2 % (40.0-80.0) 08/17/17 06:10 Lymphocytes % 21.5 % (20.0-50.0) 08/17/17 06:10 Monocytes % 5.8 % (2.0-10.0) 08/17/17 06:10 Eosinophils % 7.9 % (0.0-5.0) H 08/17/17 06:10 Basophils % 0.6 % (0.0-2.0) 08/17/17 06:10 Sodium 140 mEq/L (136-145) 08/17/17 06:10 Potassium 4.2 mEq/L (3.5-5.1) 08/17/17 06:10 Chloride 107 mEq/L (98-107) 08/17/17 06:10 Carbon Dioxide 29.5 mEq/L (21.0-31.0) 08/17/17 06:10 Anion Gap 7.7 (7.0-16.0) 08/17/17 06:10 BUN 13 mg/dL (7-25) 08/17/17 06:10 Creatinine 0.6 mg/dL (0.6-1.2) 08/17/17 06:10 Est GFR ( Amer) > 60.0 ml/min (>90) 08/17/17 06:10 Est GFR (Non-Af Amer) > 60.0 ml/min 08/17/17 06:10 BUN/Creatinine Ratio 21.7 08/17/17 06:10 Glucose 112 mg/dL (70-105) H 08/17/17 06:10 POC Glucose 99 MG/DL (70 - 105) 08/13/17 21:50 Calcium 9.6 mg/dL (8.6-10.3) 08/17/17 06:10 Total Bilirubin 0.2 mg/dL (0.3-1.0) L 08/12/17 15:33 AST 15 U/L (13-39) 08/12/17 15:33 ALT 9 U/L (7-52) 08/12/17 15:33 Alkaline Phosphatase 173 U/L (34-104) H 08/12/17 15:33 Creatine Kinase 32 U/L (30-223) 08/12/17 15:33 Troponin I 0.01 ng/mL (0.01-0.05) 08/12/17 15:33 B-Natriuretic Peptide 25.1 pg/mL (5.0-100.0) 08/12/17 15:33 Total Protein 7.0 gm/dL (6.0-8.3) 08/12/17 15:33 Albumin 3.8 gm/dL (3.7-5.3) 08/12/17 15:33 Globulin 3.2 gm/dL 08/12/17 15:33 Albumin/Globulin Ratio 1.2 (1.0-1.8) 08/12/17 15:33 Urine Source CATH 08/12/17 17:00 Urine Color YELLOW 08/12/17 17:00 Urine Clarity CLOUDY (CLEAR) H 08/12/17 17:00 Urine pH 6.0 (4.6 - 8.0) 08/12/17 17:00 Ur Specific [place] 1.010 (1.005-1.030) 08/12/17 17:00 Urine Protein TRACE mg/dL (NEGATIVE) 08/12/17 17:00 Urine Glucose (UA) NEGATIVE mg/dL (NEGATIVE) 08/12/17 17:00 Urine Clinitest NEGATIVE mg/dL (NEGATIVE) 08/12/17 17:00 Urine Ketones NEGATIVE mg/dL (NEGATIVE) 08/12/17 17:00 Urine Blood MODERATE (NEGATIVE) H 08/12/17 17:00 Urine Nitrate POSITIVE (NEGATIVE) H 08/12/17 17:00 Urine Bilirubin NEGATIVE (NEGATIVE) 08/12/17 17:00 Urine Ictotest NEGATIVE (NEGATIVE) 08/12/17 17:00 Urine Urobilinogen 0.2 E.U./dL (0.2 - 1.0) 08/12/17 17:00 Ur Leukocyte Esterase LARGE (NEGATIVE) H 08/12/17 17:00 Urine RBC 5-10 /hpf (0-5) H 08/12/17 17:00 Urine WBC >100 /hpf (0-5) H 08/12/17 17:00 Ur Epithelial Cells MODERATE /lpf (FEW) 08/12/17 17:00 Urine Bacteria MANY /hpf (NONE SEEN) H 08/12/17 17:00 Phenytoin 6.7 ug/ml (10.0-20.0) L 08/15/17 15:44 Phenobarbital 31.0 ug/ml (10-40.0) 08/12/17 15:33 - Physical Exam Vitals and I&O: Vital Signs Temp 96.4 F 08/17/17 08:00 Pulse 65 08/17/17 11:00 Resp 13 08/17/17 11:00 BP 121/55 08/17/17 10:00 Pulse Ox 100 08/17/17 11:00 Intake & Output 08/16/17 08/17/17 08/17/17 18:59 06:59 18:59 Intake Total 400 1000 150 Output Total 1250 800 Balance -850 200 150 Weight (lbs) 64.41 kg 64.41 kg Intake: Intake, IV Amount 100 150 Levetiracetam 1000mg/ 100 100 100mL 1,000 mg In 100 ml @ 200 mls/hr IV BID [facility] Rx#:[id number] Phenytoin 200 mg In 50 Sodium Chloride 0.9% 46 ml @ 100 mls/hr IV Q12HR [facility] Rx#:[id number] Oral 300 800 Other 200 Output: Urine 1250 800 Other: # Bowel Movements 0 Stool Characteristics Soft Soft Soft Active Medications: Current Medications Acetaminophen (Tylenol) 650 mg PO Q6HR PRN PRN Reason: Pain (Mild) Stop: 10/12/17 12:05 Acetaminophen/Hydrocodone Bitart ([place] 5mg/325mg) 1 tab PO Q4H PRN PRN Reason: mod pain Stop: 10/12/17 11:38 Last Admin: 08/14/17 15:51 Dose: 1 tab Ascorbic Acid (Vitamin C) 500 mg PO BID [facility] Stop: 10/12/17 16:59 Last Admin: 08/17/17 09:15 Dose: 500 mg Atorvastatin Calcium (Lipitor) 20 mg PO HS [facility] Stop: 10/12/17 20:59 Last Admin: 08/16/17 08:45 Dose: 20 mg Calcium/Vitamin D (Oscal W/Vitamin D) 1 tab PO BID [facility] Stop: 10/12/17 16:59 Last Admin: 08/17/17 09:15 Dose: 1 tab Duloxetine HCl (Cymbalta) 30 mg PO DAILY J[facility]IETH PRN Reason: Protocol Stop: 10/13/17 08:59 Last Admin: 08/17/17 09:17 Dose: 30 mg Gabapentin (Neurontin) 300 mg PO TID [facility] Stop: 10/12/17 13:59 Last Admin: 08/17/17 09:15 Dose: 300 mg Sodium Chloride (Nacl 0.9%) 1,000 mls @ 100 mls/hr IV .Q10H [facility] Stop: 10/11/17 22:28 Last Admin: 08/14/17 15:05 Dose: 100 mls/hr Levetiracetam (Keppra Pb) 1,000 mg in 100 mls @ 200 mls/hr IV BID [facility] Stop: 10/13/17 08:59 Last Admin: 08/17/17 14:19 Dose: 200 mls/hr Phenytoin 200 mg/ Sodium (Chloride) 50 mls @ 100 mls/hr IV Q12HR [facility] Stop: 10/13/17 20:59 Last Admin: 08/17/17 14:13 Dose: 100 mls/hr Meropenem 500 mg/ Sodium (Chloride) 50 mls @ 100 mls/hr IV Q8HR [facility] Stop: 10/13/17 20:59 Last Admin: 08/17/17 05:08 Dose: Not Given Valproate Sodium 1,000 mg/ (Sodium Chloride) 110 mls @ 100 mls/hr IV Q12HR [facility] Stop: 10/15/17 12:59 Last Admin: 08/17/17 14:14 Dose: 100 mls/hr Vancomycin HCl 1 gm/ Sodium (Chloride) 250 mls @ 165 mls/hr IV Q12HR@0900,2100 JULI[facility] Stop: 10/16/17 11:29 Lacosamide (Vimpat) 100 mg PO BID [facility] Stop: 10/14/17 16:59 Last Admin: 08/17/17 09:14 Dose: 100 mg Lactulose (Cephulac) 20 gm PO DAILY [facility] Stop: 10/13/17 08:59 Last Admin: 08/17/17 09:14 Dose: 20 gm Lamotrigine (Lamictal) 50 mg PO DAILY [facility]IETH PRN Reason: Protocol Stop: 10/13/17 08:59 Last Admin: 08/17/17 09:14 Dose: 50 mg Lorazepam (Ativan) 1 mg IVP Q30M PRN; Protocol PRN Reason: siezure Stop: 10/12/17 22:01 Last Admin: 08/14/17 23:05 Dose: 1 mg Miscellaneous (Vancomycin Iv Per Pharmacy) 1 ea [facility] PRN PRN PRN Reason: PROTOCOL Stop: 10/16/17 09:29 Montelukast Sodium (Singulair) 10 mg PO DAILY JULIETH Stop: 10/13/17 08:59 Last Admin: 08/17/17 09:14 Dose: 10 mg Phenobarbital (Phenobarbital) 64.8 mg PO TID J[facility] Stop: 10/12/17 08:59 Last Admin: 08/17/17 09:14 Dose: 64.8 mg Rivaroxaban (Xarelto) 20 mg PO QDPC [facility] Stop: 10/13/17 08:29 Last Admin: 08/17/17 09:15 Dose: 20 mg General: Alert, Cooperative, No acute distress HEENT: Atraumatic, PERRLA, EOMI Neck: Supple, JVD Cardiovascular: Regular rate, Normal S1, Normal S2 Lungs: Clear to auscultation Abdomen: Bowel sounds, Soft Assessment/Plan - Problem List Patient Problems: All Active Problems LEFT EAR PAIN WITH BLOODY DRAINAGE (Acute) Nutritional Asmnt/Malnutr-PDOC - Dietary Evaluation Malnutrition Findings (Please click <Entered> for more info): Nutritional Asmnt/Malnutrition Start: 08/17/17 14: 14 Text: Status: Active Freq: Document 08/17/17 14:14 ROBYN (Rec: 08/17/17 14:23 ROBYN [email or web address]) Nutritional Asmnt/Malnutrition Patient General Information Nutritional Screening High Risk Diagnosis GLENNY, CCHO Pertinent Medical Hx/Surgical Hx HTN, CAD, peripheral arterial disease, hyperlipidemia, CVA, seizure, peripheral neuropathy , constipation, GERD, unsteady gait, muscle weakness, left AKA, major depressive disorder Pertinent Labs 08/17 Na 140, K 4.2, Cl 107, Cr 13, Cr 0.6, Glucose 112 Ca 9. 6 Nutritional Hx/Data Height 1.55 m Height (Calculated Centimeters) 154.9 Current Weight (lbs) 64.41 kg Weight (Calculated Kilograms) 64.4 Weight (Calculated Grams) 42063.1 [place] Body Weight 105 % [place] Body Weight 135 Body Mass Index (BMI) 26.8 Weight Status Overweight GI Symptoms GI Symptoms None Last BM none Food Allergies Yes: shellfish Skin Integrity/Comment: non-pitting edema to right lower extremity pressure area to right loer leg and right dorsal foot, decubitus ulceration to right lower lateral foot
[2017-08-17] MEDS: Sodium Chloride 0.9% 1,000 ML IV SCH (14:50)
[2017-08-17] MEDS: Hydrocodone/APAP 5mg/325mg Tab PO PRN (16:40)
[2017-08-17] MEDS: Atorvastatin Calcium 10 MG TAB PO SCH (20:32)
[2017-08-18] MEDS: Meropenem 500 MG in Sodium Chloride 0.9% 50 ML IV SCH ×3 (05:18→21:42)
[2017-08-18] MEDS: Valproate Sodium 1,000 MG in Sodium Chloride 0.9% 100 ML IV SCH ×2 (08:25→21:45)
[2017-08-18] MEDS: SODIUM CHLORIDE 0.9% IV SCH ×2 (08:26→21:36)
[2017-08-18] MEDS: PHENYTOIN SODIUM 100 MG IV SCH ×2 (08:26→21:36)
[2017-08-18 08:29] LABS: % EOSINOPHILS 8.7 % (0.0-5.0); % LYMPHOCYTES 15.5 % (20.0-50.0); % MONOCYTES 7.4 % (2.0-10.0); % NEUTROPHILS 68.4 % (40.0-80.0); EOSINOPHILE ABSOLUTE 0.4 Th/cmm (0.1-0.4); HEMATOCRIT 29.6 % (41.0-60); HEMOGLOBIN 9.8 gm/dL (12-16); LYMPHOCYTE ABSOLUTE 0.7 Th/cmm (1.5-3.0); MEAN CELL VOLUME 89.6 fl (81-100); MEAN CORPUSCULAR HEMOGLOBIN 29.6 pg (27.0-31.0); MEAN CORPUSCULAR HGB CONC 33.1 pg (28.0-36.0); MEAN PLATELET VOLUME 7.5 fl; MONOCYTE ABSOLUTE 0.3 Th/cmm (0.3-1.0); NEUTROPHILE ABSOLUTE 3.3 Th/cmm (1.8-8.0); PLATELET COUNT 132 Th/cmm (150-400); RED CELL DISTRIBUTION WIDTH 16.1 % (11.5-20.0); WHITE BLOOD COUNT 4.7 Th/cmm (4.8-10.8)
[2017-08-18 08:50] LABS: ANION GAP 3.7 (7.0-16.0); BUN - UREA NITROGEN 10 mg/dL (7-25); CALCIUM SERUM 9.2 mg/dL (8.6-10.3); CARBON DIOXIDE 32.2 mEq/L (21.0-31.0); CHLORIDE 109 mEq/L (98-107); CREATININE - SERUM 0.5 mg/dL (0.6-1.2); GFR AFRICAN-AMERICAN > 60.0 ml/min (>90); GFR NON AFRICAN-AMERICAN > 60.0 ml/min; GLUCOSE 101 mg/dL (70-105); POTASSIUM SERUM 3.9 mEq/L (3.5-5.1); SODIUM SERUM 141 mEq/L (136-145)
[2017-08-18] MEDS: Levetiracetam 1000mg/100mL 1,000 MG/100 ML BAG IV SCH ×2 (09:00→16:44)
[2017-08-18] MEDS: Calcium Carb/Vit D 500 mg/200 U Tab PO SCH ×2 (09:22→16:36)
[2017-08-18] MEDS: Multivitamin w/ Minerals Tab PO SCH (09:22)
[2017-08-18] MEDS: Lactulose 10 Gm/15 mL 30mL UDC PO SCH (09:23)
--- NOTE | 2017-08-18 10:11 | General Progress Note ---
Subjective - Review of Systems Service Date: 08/18/17 Subjective: Pt seen and eval. More calm and collected today. Still refusing care at times. Has IV access now, as anesthesia insert central line on 08/17/16. Sx and wound care seeing her for R medial malleolus ulcer. No sz last night. On IV Meropenam for esbl uti. Added Vanco on 08/17/17 for the Staph. No n,v,d or cp. No pain. Objective - Results Result Diagrams: 08/18/17 08:15 08/18/17 08:15 Recent Labs: Laboratory Last Values WBC 4.7 Th/cmm (4.8-10.8) L 08/18/17 08:15 RBC 3.30 Mil/cmm (3.80-5.10) L 08/18/17 08:15 Hgb 9.8 gm/dL (12-16) L 08/18/17 08:15 Hct 29.6 % (41.0-60) L 08/18/17 08:15 MCV 89.6 fl (81-100) 08/18/17 08:15 MCH 29.6 pg (27.0-31.0) 08/18/17 08:15 MCHC Differential 33.1 pg (28.0-36.0) 08/18/17 08:15 RDW 16.1 % (11.5-20.0) 08/18/17 08:15 Plt Count 132 Th/cmm (150-400) L 08/18/17 08:15 MPV 7.5 fl 08/18/17 08:15 Neutrophils % 68.4 % (40.0-80.0) 08/18/17 08:15 Lymphocytes % 15.5 % (20.0-50.0) L 08/18/17 08:15 Monocytes % 7.4 % (2.0-10.0) 08/18/17 08:15 Eosinophils % 8.7 % (0.0-5.0) H 08/18/17 08:15 Basophils % 0.0 % (0.0-2.0) 08/18/17 08:15 Sodium 141 mEq/L (136-145) 08/18/17 08:15 Potassium 3.9 mEq/L (3.5-5.1) 08/18/17 08:15 Chloride 109 mEq/L (98-107) H 08/18/17 08:15 Carbon Dioxide 32.2 mEq/L (21.0-31.0) H 08/18/17 08:15 Anion Gap 3.7 (7.0-16.0) L 08/18/17 08:15 BUN 10 mg/dL (7-25) 08/18/17 08:15 Creatinine 0.5 mg/dL (0.6-1.2) L 08/18/17 08:15 Est GFR ( Amer) > 60.0 ml/min (>90) 08/18/17 08:15 Est GFR (Non-Af Amer) > 60.0 ml/min 08/18/17 08:15 BUN/Creatinine Ratio 20.0 08/18/17 08:15 Glucose 101 mg/dL (70-105) 08/18/17 08:15 POC Glucose 99 MG/DL (70 - 105) 08/13/17 21:50 Calcium 9.2 mg/dL (8.6-10.3) 08/18/17 08:15 Total Bilirubin 0.2 mg/dL (0.3-1.0) L 08/12/17 15:33 AST 15 U/L (13-39) 08/12/17 15:33 ALT 9 U/L (7-52) 08/12/17 15:33 Alkaline Phosphatase 173 U/L (34-104) H 08/12/17 15:33 Creatine Kinase 32 U/L (30-223) 08/12/17 15:33 Troponin I 0.01 ng/mL (0.01-0.05) 08/12/17 15:33 B-Natriuretic Peptide 25.1 pg/mL (5.0-100.0) 08/12/17 15:33 Total Protein 7.0 gm/dL (6.0-8.3) 08/12/17 15:33 Albumin 3.8 gm/dL (3.7-5.3) 08/12/17 15:33 Globulin 3.2 gm/dL 08/12/17 15:33 Albumin/Globulin Ratio 1.2 (1.0-1.8) 08/12/17 15:33 Urine Source CATH 08/12/17 17:00 Urine Color YELLOW 08/12/17 17:00 Urine Clarity CLOUDY (CLEAR) H 08/12/17 17:00 Urine pH 6.0 (4.6 - 8.0) 08/12/17 17:00 Ur Specific [place] 1.010 (1.005-1.030) 08/12/17 17:00 Urine Protein TRACE mg/dL (NEGATIVE) 08/12/17 17:00 Urine Glucose (UA) NEGATIVE mg/dL (NEGATIVE) 08/12/17 17:00 Urine Clinitest NEGATIVE mg/dL (NEGATIVE) 08/12/17 17:00 Urine Ketones NEGATIVE mg/dL (NEGATIVE) 08/12/17 17:00 Urine Blood MODERATE (NEGATIVE) H 08/12/17 17:00 Urine Nitrate POSITIVE (NEGATIVE) H 08/12/17 17:00 Urine Bilirubin NEGATIVE (NEGATIVE) 08/12/17 17:00 Urine Ictotest NEGATIVE (NEGATIVE) 08/12/17 17:00 Urine Urobilinogen 0.2 E.U./dL (0.2 - 1.0) 08/12/17 17:00 Ur Leukocyte Esterase LARGE (NEGATIVE) H 08/12/17 17:00 Urine RBC 5-10 /hpf (0-5) H 08/12/17 17:00 Urine WBC >100 /hpf (0-5) H 08/12/17 17:00 Ur Epithelial Cells MODERATE /lpf (FEW) 08/12/17 17:00 Urine Bacteria MANY /hpf (NONE SEEN) H 08/12/17 17:00 Vancomycin Trough 19.5 ug/mL (10-20) 08/18/17 08:15 Phenytoin 7.0 ug/ml (10.0-20.0) L 08/18/17 08:15 Lamotrigine NONE DETECTED 08/15/17 15:44 Phenobarbital 31.0 ug/ml (10-40.0) 08/12/17 15:33 - Physical Exam Vitals and I&O: Vital Signs Temp 96.7 F 08/18/17 03:00 Pulse 69 08/18/17 07:00 Resp 12 08/18/17 07:00 BP 111/57 08/18/17 06:00 Pulse Ox 98 08/18/17 07:00 Intake & Output 08/17/17 08/18/17 08/18/17 18:59 06:59 18:59 Intake Total 1060 1310 Output Total 850 2000 Balance 210 -690 Weight (lbs) 64.41 kg 64.41 kg Intake: Intake, IV Amount 760 510 Levetiracetam 1000mg/ 200 100mL 1,000 mg In 100 ml @ 200 mls/hr IV BID [facility] Rx#:[id number] Meropenem 500 mg In 100 100 Sodium Chloride 0.9% 50 ml @ 100 mls/hr IV Q8HR [facility] Rx#:[id number] Phenytoin 200 mg In 100 50 Sodium Chloride 0.9% 46 ml @ 100 mls/hr IV Q12HR [facility] Rx#:[id number] Valproate Sodium 1,000 mg 110 110 In Sodium Chloride 0.9% 100 ml @ 100 mls/hr IV Q12HR [facility] Rx#:[id number] Vancomycin HCl 1 gm In 250 250 Sodium Chloride 0.9% 250 ml @ 165 mls/hr IV Q12HR@ 0900,2100 [facility] Rx#: [id number] Oral 300 800 Output: Urine 850 2000 Other: # Bowel Movements 0 0 Stool Characteristics Soft Soft Soft Active Medications: Current Medications Acetaminophen (Tylenol) 650 mg PO Q6HR PRN PRN Reason: Pain (Mild) Stop: 10/12/17 12:05 Acetaminophen/Hydrocodone Bitart ([place] 5mg/325mg) 1 tab PO Q4H PRN PRN Reason: mod pain Stop: 10/12/17 11:38 Last Admin: 08/17/17 16:40 Dose: 1 tab Ascorbic Acid (Vitamin C) 500 mg PO BID [facility] Stop: 10/12/17 16:59 Last Admin: 08/18/17 09:22 Dose: 500 mg Atorvastatin Calcium (Lipitor) 20 mg PO HS [facility] Stop: 10/12/17 20:59 Last Admin: 08/17/17 20:32 Dose: 20 mg Calcium/Vitamin D (Oscal W/Vitamin D) 1 tab PO BID [facility] Stop: 10/12/17 16:59 Last Admin: 08/18/17 09:22 Dose: 1 tab Duloxetine HCl (Cymbalta) 60 mg PO DAILY [facility] PRN Reason: Protocol Stop: 10/13/17 08:59 Last Admin: 08/18/17 09:23 Dose: 60 mg Gabapentin (Neurontin) 300 mg PO TID [facility] Stop: 10/12/17 13:59 Last Admin: 08/18/17 09:22 Dose: 300 mg Sodium Chloride (Nacl 0.9%) 1,000 mls @ 100 mls/hr IV .Q10H [facility] Stop: 10/11/17 22:28 Last Admin: 08/17/17 14:50 Dose: 100 mls/hr Levetiracetam (Keppra Pb) 1,000 mg in 100 mls @ 200 mls/hr IV BID [facility] Stop: 10/13/17 08:59 Last Infusion: 08/17/17 14:49 Dose: Infused Phenytoin 200 mg/ Sodium (Chloride) 50 mls @ 100 mls/hr IV Q12HR [facility] Stop: 10/13/17 20:59 Last Admin: 08/18/17 08:26 Dose: 100 mls/hr Meropenem 500 mg/ Sodium (Chloride) 50 mls @ 100 mls/hr IV Q8HR [facility] Stop: 10/13/17 20:59 Last Infusion: 08/18/17 05:50 Dose: Infused Valproate Sodium 1,000 mg/ (Sodium Chloride) 110 mls @ 100 mls/hr IV Q12HR [facility] Stop: 10/15/17 12:59 Last Admin: 08/18/17 08:25 Dose: 100 mls/hr Vancomycin HCl 1 gm/ Sodium (Chloride) 250 mls @ 165 mls/hr IV Q12HR@0900,2100 [facility] Stop: 10/16/17 11:29 Last Infusion: 08/17/17 23:35 Dose: Infused Lacosamide (Vimpat) 100 mg PO BID [facility] Stop: 10/14/17 16:59 Last Admin: 08/17/17 16:40 Dose: 100 mg Lactulose (Cephulac) 20 gm PO DAILY [facility] Stop: 10/13/17 08:59 Last Admin: 08/18/17 09:23 Dose: 20 gm Lamotrigine (Lamictal) 50 mg PO DAILY [facility] PRN Reason: Protocol Stop: 10/13/17 08:59 Last Admin: 08/18/17 09:21 Dose: 50 mg Lorazepam (Ativan) 1 mg IVP Q30M PRN; Protocol PRN Reason: siezure Stop: 10/12/17 22:01 Last Admin: 08/18/17 00:30 Dose: 1 mg Miscellaneous (Vancomycin Iv Per Pharmacy) 1 ea PRN PRN PRN Reason: PROTOCOL Stop: 10/16/17 09:29 Montelukast Sodium (Singulair) 10 mg PO DAILY [facility] Stop: 10/13/17 08:59 Last Admin: 08/18/17 09:21 Dose: 10 mg Phenobarbital (Phenobarbital) 64.8 mg PO TID [facility] Stop: 10/12/17 08:59 Last Admin: 08/18/17 09:23 Dose: 64.8 mg Rivaroxaban (Xarelto) 20 mg PO QDPC [facility] Stop: 10/13/17 08:29 Last Admin: 08/18/17 09:22 Dose: 20 mg General: Alert, Cooperative, No acute distress HEENT: Atraumatic, PERRLA, EOMI Neck: Supple, JVD Cardiovascular: Regular rate, Normal S1, Normal S2 Lungs: Clear to auscultation Abdomen: Bowel sounds, Soft Assessment/Plan - Problem List Patient Problems: All Active Problems LEFT EAR PAIN WITH BLOODY DRAINAGE (Acute) - Assessment Assessment: BT Sz Sz DO per hx AME R foot wound infection with Pseudomonas [place] and Staph Aureus MDRO ESBL UTI Dsylipid R medial malleolus ulcer - Plan Plan: Dr. Bear following. Pt seen and eval. More calm and collected today. Still refusing care at times. Has IV access now, as anesthesia insert central line on 08/17/16. Sx and wound care seeing her for R medial malleolus ulcer. Pt refused the US of LE. No sz last night. On IV Meropenam for esbl uti. Added Vanco on 08/17/17 for the Staph. No n,v,d or cp. No pain. Looked in left ear again. There is no discharge or inflammation. No pain in ears. Nutritional Asmnt/Malnutr-PDOC - Dietary Evaluation Malnutrition Findings (Please click <Entered> for more info): Nutritional Asmnt/Malnutrition Start: 08/17/17 14: 14 Text: Status: Complete Freq: Document 08/17/17 14:14 ROBYN (Rec: 08/17/17 14:23 RAYMONDG [email or web address]) Nutritional Asmnt/Malnutrition Patient General Information Nutritional Screening High Risk Diagnosis GLENNY, CCHO Pertinent Medical Hx/Surgical Hx HTN, CAD, peripheral arterial disease, hyperlipidemia, CVA, seizure, peripheral neuropathy , constipation, GERD, unsteady gait, muscle weakness, left AKA, major depressive disorder Subjective Information Pt seen sleeping in bed at the time of visit. Spoke with RN, pt refused breakfast and lunch today, including meds. Per nurse note, pt had late dinner yesterday 08/16, consumed 90% of dinener with assist. Pertinent Medications viatmin C, calcium/vit D, nacl 0.9%, vancomycin Pertinent Labs 08/17 Na 140, K 4.2, Cl 107, Cr 13, Cr 0.6, Glucose 112 Ca 9. 6 Nutritional Hx/Data Height 1.55 m Height (Calculated Centimeters) 154.9 Current Weight (lbs) 64.41 kg Weight (Calculated Kilograms) 64.4 Weight (Calculated Grams) 17181.1 [place] Body Weight 105 % [place] Body Weight 135 Body Mass Index (BMI) 26.8 Weight Status Overweight GI Symptoms GI Symptoms None Last BM none Food Allergies Yes: shellfish Skin Integrity/Comment: non-pitting edema to right lower extremity pressure area to right loer leg and right dorsal foot, decubitus ulceration to right lower lateral foot Estimated Nutritional Goals BEE in Kcals: Using Current wt Calories/Kcals/Kg 25-30 Kcals Calculated 5390-7799 considering bedbound Protein: Using Current wt Protein g/k-1.2 Protein Calculated 65-78 Fluid: ml 2135-8113 Nutritional Problem 1. Problem Problem increased nutrition needs ( calorie and protein) Etiology increased metabolic demand for wound healing Signs/Symptoms: pressure area and decubitus ulceration Malnutrition Alert Protein-Calorie Malnutrition N/A Is there a minimum of two criteria No selected? Query Text:Check all the applicable criteria. A minimum of two criteria are recommended for diagnosis of either severe or non-severe malnutrition. Intervention/Recommendation Comments 1. Continue with current diet as ordered. If PO intake continue low, MD to consider appetite stimulant. 2. Monitor PO intake, wt, labs and skin integrity 3. F/U as high risk in 2-3 days, 08/19-08/20 Expected Outcomes/Goals Expected Outcomes/Goals 1. PO intake to meet at least 75% of nutritional needs. 2. Wt stability, wound to heal , labs to approach WNL.
[2017-08-18] MEDS: Hydrocodone/APAP 5mg/325mg Tab PO PRN (14:32)
--- NOTE | 2017-08-18 18:06 | General Progress Note ---
Subjective - Review of Systems Service Date: 08/18/17 Events since last encounter: arterial doppler ordered Objective - Results Result Diagrams: 08/18/17 08:15 08/18/17 08:15 Recent Labs: Laboratory Last Values WBC 4.7 Th/cmm (4.8-10.8) L 08/18/17 08:15 RBC 3.30 Mil/cmm (3.80-5.10) L 08/18/17 08:15 Hgb 9.8 gm/dL (12-16) L 08/18/17 08:15 Hct 29.6 % (41.0-60) L 08/18/17 08:15 MCV 89.6 fl (81-100) 08/18/17 08:15 MCH 29.6 pg (27.0-31.0) 08/18/17 08:15 MCHC Differential 33.1 pg (28.0-36.0) 08/18/17 08:15 RDW 16.1 % (11.5-20.0) 08/18/17 08:15 Plt Count 132 Th/cmm (150-400) L 08/18/17 08:15 MPV 7.5 fl 08/18/17 08:15 Neutrophils % 68.4 % (40.0-80.0) 08/18/17 08:15 Lymphocytes % 15.5 % (20.0-50.0) L 08/18/17 08:15 Monocytes % 7.4 % (2.0-10.0) 08/18/17 08:15 Eosinophils % 8.7 % (0.0-5.0) H 08/18/17 08:15 Basophils % 0.0 % (0.0-2.0) 08/18/17 08:15 Sodium 141 mEq/L (136-145) 08/18/17 08:15 Potassium 3.9 mEq/L (3.5-5.1) 08/18/17 08:15 Chloride 109 mEq/L (98-107) H 08/18/17 08:15 Carbon Dioxide 32.2 mEq/L (21.0-31.0) H 08/18/17 08:15 Anion Gap 3.7 (7.0-16.0) L 08/18/17 08:15 BUN 10 mg/dL (7-25) 08/18/17 08:15 Creatinine 0.5 mg/dL (0.6-1.2) L 08/18/17 08:15 Est GFR ( Amer) > 60.0 ml/min (>90) 08/18/17 08:15 Est GFR (Non-Af Amer) > 60.0 ml/min 08/18/17 08:15 BUN/Creatinine Ratio 20.0 08/18/17 08:15 Glucose 101 mg/dL (70-105) 08/18/17 08:15 POC Glucose 99 MG/DL (70 - 105) 08/13/17 21:50 Calcium 9.2 mg/dL (8.6-10.3) 08/18/17 08:15 Total Bilirubin 0.2 mg/dL (0.3-1.0) L 08/12/17 15:33 AST 15 U/L (13-39) 08/12/17 15:33 ALT 9 U/L (7-52) 08/12/17 15:33 Alkaline Phosphatase 173 U/L (34-104) H 08/12/17 15:33 Creatine Kinase 32 U/L (30-223) 08/12/17 15:33 Troponin I 0.01 ng/mL (0.01-0.05) 08/12/17 15:33 B-Natriuretic Peptide 25.1 pg/mL (5.0-100.0) 08/12/17 15:33 Total Protein 7.0 gm/dL (6.0-8.3) 08/12/17 15:33 Albumin 3.8 gm/dL (3.7-5.3) 08/12/17 15:33 Globulin 3.2 gm/dL 08/12/17 15:33 Albumin/Globulin Ratio 1.2 (1.0-1.8) 08/12/17 15:33 Urine Source CATH 08/12/17 17:00 Urine Color YELLOW 08/12/17 17:00 Urine Clarity CLOUDY (CLEAR) H 08/12/17 17:00 Urine pH 6.0 (4.6 - 8.0) 08/12/17 17:00 Ur Specific [place] 1.010 (1.005-1.030) 08/12/17 17:00 Urine Protein TRACE mg/dL (NEGATIVE) 08/12/17 17:00 Urine Glucose (UA) NEGATIVE mg/dL (NEGATIVE) 08/12/17 17:00 Urine Clinitest NEGATIVE mg/dL (NEGATIVE) 08/12/17 17:00 Urine Ketones NEGATIVE mg/dL (NEGATIVE) 08/12/17 17:00 Urine Blood MODERATE (NEGATIVE) H 08/12/17 17:00 Urine Nitrate POSITIVE (NEGATIVE) H 08/12/17 17:00 Urine Bilirubin NEGATIVE (NEGATIVE) 08/12/17 17:00 Urine Ictotest NEGATIVE (NEGATIVE) 08/12/17 17:00 Urine Urobilinogen 0.2 E.U./dL (0.2 - 1.0) 08/12/17 17:00 Ur Leukocyte Esterase LARGE (NEGATIVE) H 08/12/17 17:00 Urine RBC 5-10 /hpf (0-5) H 08/12/17 17:00 Urine WBC >100 /hpf (0-5) H 08/12/17 17:00 Ur Epithelial Cells MODERATE /lpf (FEW) 08/12/17 17:00 Urine Bacteria MANY /hpf (NONE SEEN) H 08/12/17 17:00 Vancomycin Trough 19.5 ug/mL (10-20) 08/18/17 08:15 Phenytoin 7.0 ug/ml (10.0-20.0) L 08/18/17 08:15 Lamotrigine NONE DETECTED 08/15/17 15:44 Phenobarbital 31.0 ug/ml (10-40.0) 08/12/17 15:33 - Physical Exam Vitals and I&O: Vital Signs Temp 97.2 F 08/18/17 16:00 Pulse 80 08/18/17 17:42 Resp 17 08/18/17 17:42 BP 110/54 08/18/17 17:42 Pulse Ox 100 08/18/17 17:42 Intake & Output 08/17/17 08/18/17 08/18/17 18:59 06:59 18:59 Intake Total 1060 1310 940 Output Total 850 2000 950 Balance 210 -690 -10 Weight (lbs) 64.41 kg 64.41 kg 64.41 kg Intake: Intake, IV Amount 760 510 560 Levetiracetam 1000mg/ 200 100 100mL 1,000 mg In 100 ml @ 200 mls/hr IV BID [facility] Rx#:[id number] Meropenem 500 mg In 100 100 50 Sodium Chloride 0.9% 50 ml @ 100 mls/hr IV Q8HR [facility] Rx#:[id number] Phenytoin 200 mg In 100 50 50 Sodium Chloride 0.9% 46 ml @ 100 mls/hr IV Q12HR [facility] Rx#:[id number] Valproate Sodium 1,000 mg 110 110 110 In Sodium Chloride 0.9% 100 ml @ 100 mls/hr IV Q12HR [facility] Rx#:[id number] Vancomycin HCl 1 gm In 250 250 250 Sodium Chloride 0.9% 250 ml @ 165 mls/hr IV Q12HR@ 0900,2100 [facility] Rx#: [id number] Oral 300 800 380 Output: Urine 850 2000 950 Other: # Bowel Movements 0 0 0 Stool Characteristics Soft Soft Soft Active Medications: Current Medications Acetaminophen (Tylenol) 650 mg PO Q6HR PRN PRN Reason: Pain (Mild) Stop: 10/12/17 12:05 Acetaminophen/Hydrocodone Bitart ([place] 5mg/325mg) 1 tab PO Q4H PRN PRN Reason: mod pain Stop: 10/12/17 11:38 Last Admin: 08/18/17 14:32 Dose: 1 tab Ascorbic Acid (Vitamin C) 500 mg PO BID [facility] Stop: 10/12/17 16:59 Last Admin: 08/18/17 16:36 Dose: Not Given Atorvastatin Calcium (Lipitor) 20 mg PO HS [facility] Stop: 10/12/17 20:59 Last Admin: 08/17/17 20:32 Dose: 20 mg Calcium/Vitamin D (Oscal W/Vitamin D) 1 tab PO BID [facility] Stop: 10/12/17 16:59 Last Admin: 08/18/17 16:36 Dose: Not Given Duloxetine HCl (Cymbalta) 60 mg PO DAILY [facility] PRN Reason: Protocol Stop: 10/13/17 08:59 Last Admin: 08/18/17 09:23 Dose: 60 mg Gabapentin (Neurontin) 300 mg PO TID [facility] Stop: 10/12/17 13:59 Last Admin: 08/18/17 14:31 Dose: 300 mg Sodium Chloride (Nacl 0.9%) 1,000 mls @ 100 mls/hr IV .Q10H [facility] Stop: 10/11/17 22:28 Last Admin: 08/17/17 14:50 Dose: 100 mls/hr Levetiracetam (Keppra Pb) 1,000 mg in 100 mls @ 200 mls/hr IV BID [facility] Stop: 10/13/17 08:59 Last Admin: 08/18/17 16:44 Dose: 200 mls/hr Phenytoin 200 mg/ Sodium (Chloride) 50 mls @ 100 mls/hr IV Q12HR [facility] Stop: 10/13/17 20:59 Last Infusion: 08/18/17 08:56 Dose: Infused Meropenem 500 mg/ Sodium (Chloride) 50 mls @ 100 mls/hr IV Q8HR [facility] Stop: 10/13/17 20:59 Last Infusion: 08/18/17 15:02 Dose: Infused Valproate Sodium 1,000 mg/ (Sodium Chloride) 110 mls @ 100 mls/hr IV Q12HR [facility] Stop: 10/15/17 12:59 Last Infusion: 08/18/17 09:31 Dose: Infused Vancomycin HCl 1 gm/ Sodium (Chloride) 250 mls @ 165 mls/hr IV Q12HR@0900,2100 [facility] Stop: 10/16/17 11:29 Last Infusion: 08/18/17 16:17 Dose: Infused Lacosamide (Vimpat) 100 mg PO BID [facility] Stop: 10/14/17 16:59 Last Admin: 08/18/17 16:46 Dose: 100 mg Lactulose (Cephulac) 20 gm PO DAILY [facility] Stop: 10/13/17 08:59 Last Admin: 08/18/17 09:23 Dose: 20 gm Lamotrigine (Lamictal) 50 mg PO DAILY [facility] PRN Reason: Protocol Stop: 10/13/17 08:59 Last Admin: 08/18/17 09:21 Dose: 50 mg Lorazepam (Ativan) 1 mg IVP Q30M PRN; Protocol PRN Reason: siezure Stop: 10/12/17 22:01 Last Admin: 08/18/17 00:30 Dose: 1 mg Miscellaneous (Vancomycin Iv Per Pharmacy) 1 ea [facility] PRN PRN PRN Reason: PROTOCOL Stop: 10/16/17 09:29 Montelukast Sodium (Singulair) 10 mg PO DAILY [facility] Stop: 10/13/17 08:59 Last Admin: 08/18/17 09:21 Dose: 10 mg Phenobarbital (Phenobarbital) 64.8 mg PO TID [facility] Stop: 10/12/17 08:59 Last Admin: 08/18/17 14:31 Dose: 64.8 mg Rivaroxaban (Xarelto) 20 mg PO QDPC [facility] Stop: 10/13/17 08:29 Last Admin: 08/18/17 09:22 Dose: 20 mg General: Alert, Cooperative, No acute distress HEENT: Atraumatic, PERRLA, EOMI Neck: Supple, JVD Cardiovascular: Regular rate, Normal S1, Normal S2 Lungs: Clear to auscultation Abdomen: Bowel sounds, Soft Assessment/Plan - Problem List Patient Problems: All Active Problems LEFT EAR PAIN WITH BLOODY DRAINAGE (Acute) Nutritional Asmnt/Malnutr-PDOC - Dietary Evaluation Malnutrition Findings (Please click <Entered> for more info): Nutritional Asmnt/Malnutrition Start: 08/17/17 14: 14 Text: Status: Complete Freq: Document 08/17/17 14:14 ROBYN (Rec: 08/17/17 14:23 [facility] Nutritional Asmnt/Malnutrition Patient General Information Nutritional Screening High Risk Diagnosis GLENNY, CCHO Pertinent Medical Hx/Surgical Hx HTN, CAD, peripheral arterial disease, hyperlipidemia, CVA, seizure, peripheral neuropathy , constipation, GERD, unsteady gait, muscle weakness, left AKA, major depressive disorder Subjective Information Pt seen sleeping in bed at the time of visit. Spoke with RN, pt refused breakfast and lunch today, including meds. Per nurse note, pt had late dinner yesterday 08/16, consumed 90% of dinener with assist. Pertinent Medications viatmin C, calcium/vit D, nacl 0.9%, vancomycin Pertinent Labs 08/17 Na 140, K 4.2, Cl 107, Cr 13, Cr 0.6, Glucose 112 Ca 9. 6 Nutritional Hx/Data Height 1.55 m Height (Calculated Centimeters) 154.9 Current Weight (lbs) 64.41 kg Weight (Calculated Kilograms) 64.4 Weight (Calculated Grams) 88642.1 [place] Body Weight 105 % [place] Body Weight 135 Body Mass Index (BMI) 26.8 Weight Status Overweight GI Symptoms GI Symptoms None Last BM none Food Allergies Yes: shellfish Skin Integrity/Comment: non-pitting edema to right lower extremity pressure area to right loer leg and right dorsal foot, decubitus ulceration to right lower lateral foot Estimated Nutritional Goals BEE in Kcals: Using Current wt Calories/Kcals/Kg 25-30 Kcals Calculated 2082-7198 considering bedbound Protein: Using Current wt Protein g/k-1.2 Protein Calculated 65-78 Fluid: ml 7865-4345 Nutritional Problem 1. Problem Problem increased nutrition needs ( calorie and protein) Etiology increased metabolic demand for wound healing Signs/Symptoms: pressure area and decubitus ulceration Malnutrition Alert Protein-Calorie Malnutrition N/A Is there a minimum of two criteria No selected? Query Text:Check all the applicable criteria. A minimum of two criteria are recommended for diagnosis of either severe or non-severe malnutrition. Intervention/Recommendation Comments 1. Continue with current diet as ordered. If PO intake continue low, MD to consider appetite stimulant. 2. Monitor PO intake, wt, labs and skin integrity 3. F/U as high risk in 2-3 days, 08/19-08/20 Expected Outcomes/Goals Expected Outcomes/Goals 1. PO intake to meet at least 75% of nutritional needs. 2. Wt stability, wound to heal , labs to approach WNL.
[2017-08-18] MEDS: Atorvastatin Calcium 10 MG TAB PO SCH (21:35)
--- NOTE | 2017-08-18 22:02 | Consultation ---
DATE OF CONSULTATION: 08/17/2017 SURGICAL CONSULTATION REFERRING PHYSICIAN: Dr. Sands. REASON FOR CONSULTATION: Ulcer in the right medial malleolus. Thank you for referring this patient to me. HISTORY OF PRESENT ILLNESS: This is a 57-year-old female admitted because of left ear bleeding and pain. She has history of hypertension, coronary artery disease, peripheral vascular disease, hyperlipidemia, CVA, seizure disorder, status post left above knee amputation with major depressive disorder. LABORATORY STUDIES: Show CBC to be essentially normal. Chemistry: Blood sugar is 112. Rest of the exam are within normal limits. RECOMMENDATIONS: The patient has been followed by the wound care nurse here because of what he thinks is an excessive ulceration growth in the medial malleolus on the right foot. The patient claims it has been present for several months. Clinical examination shows granulation tissue, which to me does not appear to be excessive and requires no debridement at this point. There is no evidence now clinically of any ischemic problem to the right foot. We will order arterial Doppler study to be sure in view of the amputation on the left lower extremity. JOB# [id number]
--- NOTE | 2017-08-19 00:58 | Progress Notes ---
DATE: 08/18/2017 Chart reviewed and the patient interviewed, also discussed the patient's condition with the staff and reviewed records and labs. The patient is still and off sedated and sleepy this morning. She also still was not able to answer my questions. According to staff, the patient has signs of confusion, but also depression, but she seems to be more cooperative in regard to take her medications. She refused. We will have a blood pressure cuff place this morning. In general, she is showing slight improvement in regard to being cooperative with her treatment. Dr. Barnett continued to record for the patient. The patient is still anxious. She still needs lots of redirections. She denies any intention to harm herself or others, that is according to staff report. Otherwise, the patient is taking Cymbalta 30 mg everyday. We will increase Cymbalta to 60 mg everyday and we will continue to follow up closely. JOB# [id number]
[2017-08-19] MEDS: Meropenem 500 MG in Sodium Chloride 0.9% 50 ML IV SCH ×3 (04:37→20:35)
[2017-08-19] MEDS: Hydrocodone/APAP 5mg/325mg Tab PO PRN (04:37)
[2017-08-19] MEDS: Sodium Chloride 0.9% 1,000 ML IV SCH ×2 (04:55→18:38)
[2017-08-19 04:58] LABS: % BASOPHILS 0.7 % (0.0-2.0); % MONOCYTES 5.4 % (2.0-10.0); % NEUTROPHILS 62.9 % (40.0-80.0); EOSINOPHILE ABSOLUTE 0.5 Th/cmm (0.1-0.4); HEMOGLOBIN 8.8 gm/dL (12-16); MEAN CELL VOLUME 89.2 fl (81-100); MEAN CORPUSCULAR HGB CONC 32.5 pg (28.0-36.0); MEAN PLATELET VOLUME 7.7 fl; MONOCYTE ABSOLUTE 0.2 Th/cmm (0.3-1.0); NEUTROPHILE ABSOLUTE 2.9 Th/cmm (1.8-8.0); PLATELET COUNT 130 Th/cmm (150-400); RED BLOOD COUNT 3.03 Mil/cmm (3.80-5.10); RED CELL DISTRIBUTION WIDTH 15.8 % (11.5-20.0); WHITE BLOOD COUNT 4.6 Th/cmm (4.8-10.8)
[2017-08-19 05:16] LABS: ANION GAP 6.3 (7.0-16.0); BUN - UREA NITROGEN 12 mg/dL (7-25); CALCIUM SERUM 8.7 mg/dL (8.6-10.3); CARBON DIOXIDE 28.5 mEq/L (21.0-31.0); CHLORIDE 107 mEq/L (98-107); CREATININE - SERUM 0.6 mg/dL (0.6-1.2); GFR AFRICAN-AMERICAN > 60.0 ml/min (>90); GFR NON AFRICAN-AMERICAN > 60.0 ml/min; GLUCOSE 98 mg/dL (70-105); POTASSIUM SERUM 3.8 mEq/L (3.5-5.1); SODIUM SERUM 138 mEq/L (136-145)
[2017-08-19] MEDS: PHENYTOIN SODIUM 100 MG IV SCH (08:24)
[2017-08-19] MEDS: SODIUM CHLORIDE 0.9% IV SCH (08:24)
[2017-08-19] MEDS: Calcium Carb/Vit D 500 mg/200 U Tab PO SCH ×2 (09:00→18:36)
[2017-08-19] MEDS: Lactulose 10 Gm/15 mL 30mL UDC PO SCH ×2 (09:06→09:50)
[2017-08-19] MEDS: Multivitamin w/ Minerals Tab PO SCH ×2 (09:09→09:46)
[2017-08-19] MEDS ORDERED: Levetiracetam 1000mg/100mL 1,000 MG/100 ML BAG IV SCH ×2 (10:00)
--- NOTE | 2017-08-19 10:02 | General Progress Note ---
Subjective - Review of Systems Service Date: 08/19/17 Subjective: Pt seen and eval. More calm and collected today. She took most of her oral meds this am. Has IV access now, as anesthesia inserted central line on 08/17/16. Sx and wound care seeing her for R medial malleolus ulcer. No sz last night. On IV Meropenam for esbl uti. Added Vanco on 08/17/17 for the Staph. No n,v,d or cp. No pain. Objective - Results Result Diagrams: 08/19/17 04:46 08/19/17 04:46 Recent Labs: Laboratory Last Values WBC 4.6 Th/cmm (4.8-10.8) L 08/19/17 04:46 RBC 3.03 Mil/cmm (3.80-5.10) L 08/19/17 04:46 Hgb 8.8 gm/dL (12-16) L 08/19/17 04:46 Hct 27.0 % (41.0-60) L 08/19/17 04:46 MCV 89.2 fl (81-100) 08/19/17 04:46 MCH 29.0 pg (27.0-31.0) 08/19/17 04:46 MCHC Differential 32.5 pg (28.0-36.0) 08/19/17 04:46 RDW 15.8 % (11.5-20.0) 08/19/17 04:46 Plt Count 130 Th/cmm (150-400) L 08/19/17 04:46 MPV 7.7 fl 08/19/17 04:46 Neutrophils % 62.9 % (40.0-80.0) 08/19/17 04:46 Lymphocytes % 21.0 % (20.0-50.0) 08/19/17 04:46 Monocytes % 5.4 % (2.0-10.0) 08/19/17 04:46 Eosinophils % 10.0 % (0.0-5.0) H 08/19/17 04:46 Basophils % 0.7 % (0.0-2.0) 08/19/17 04:46 Sodium 138 mEq/L (136-145) 08/19/17 04:46 Potassium 3.8 mEq/L (3.5-5.1) 08/19/17 04:46 Chloride 107 mEq/L (98-107) 08/19/17 04:46 Carbon Dioxide 28.5 mEq/L (21.0-31.0) 08/19/17 04:46 Anion Gap 6.3 (7.0-16.0) L 08/19/17 04:46 BUN 12 mg/dL (7-25) 08/19/17 04:46 Creatinine 0.6 mg/dL (0.6-1.2) 08/19/17 04:46 Est GFR ( Amer) > 60.0 ml/min (>90) 08/19/17 04:46 Est GFR (Non-Af Amer) > 60.0 ml/min 08/19/17 04:46 BUN/Creatinine Ratio 20.0 08/19/17 04:46 Glucose 98 mg/dL (70-105) 08/19/17 04:46 POC Glucose 99 MG/DL (70 - 105) 08/13/17 21:50 Calcium 8.7 mg/dL (8.6-10.3) 08/19/17 04:46 Total Bilirubin 0.2 mg/dL (0.3-1.0) L 08/12/17 15:33 AST 15 U/L (13-39) 08/12/17 15:33 ALT 9 U/L (7-52) 08/12/17 15:33 Alkaline Phosphatase 173 U/L (34-104) H 08/12/17 15:33 Creatine Kinase 32 U/L (30-223) 08/12/17 15:33 Troponin I 0.01 ng/mL (0.01-0.05) 08/12/17 15:33 B-Natriuretic Peptide 25.1 pg/mL (5.0-100.0) 08/12/17 15:33 Total Protein 7.0 gm/dL (6.0-8.3) 08/12/17 15:33 Albumin 3.8 gm/dL (3.7-5.3) 08/12/17 15:33 Globulin 3.2 gm/dL 08/12/17 15:33 Albumin/Globulin Ratio 1.2 (1.0-1.8) 08/12/17 15:33 Urine Source CATH 08/12/17 17:00 Urine Color YELLOW 08/12/17 17:00 Urine Clarity CLOUDY (CLEAR) H 08/12/17 17:00 Urine pH 6.0 (4.6 - 8.0) 08/12/17 17:00 Ur Specific [place] 1.010 (1.005-1.030) 08/12/17 17:00 Urine Protein TRACE mg/dL (NEGATIVE) 08/12/17 17:00 Urine Glucose (UA) NEGATIVE mg/dL (NEGATIVE) 08/12/17 17:00 Urine Clinitest NEGATIVE mg/dL (NEGATIVE) 08/12/17 17:00 Urine Ketones NEGATIVE mg/dL (NEGATIVE) 08/12/17 17:00 Urine Blood MODERATE (NEGATIVE) H 08/12/17 17:00 Urine Nitrate POSITIVE (NEGATIVE) H 08/12/17 17:00 Urine Bilirubin NEGATIVE (NEGATIVE) 08/12/17 17:00 Urine Ictotest NEGATIVE (NEGATIVE) 08/12/17 17:00 Urine Urobilinogen 0.2 E.U./dL (0.2 - 1.0) 08/12/17 17:00 Ur Leukocyte Esterase LARGE (NEGATIVE) H 08/12/17 17:00 Urine RBC 5-10 /hpf (0-5) H 08/12/17 17:00 Urine WBC >100 /hpf (0-5) H 08/12/17 17:00 Ur Epithelial Cells MODERATE /lpf (FEW) 08/12/17 17:00 Urine Bacteria MANY /hpf (NONE SEEN) H 08/12/17 17:00 Vancomycin Trough 19.5 ug/mL (10-20) 08/18/17 08:15 Phenytoin 7.0 ug/ml (10.0-20.0) L 08/18/17 08:15 Lamotrigine NONE DETECTED 08/15/17 15:44 Levetiracetam 21.7 08/15/17 15:44 Phenobarbital 31.0 ug/ml (10-40.0) 08/12/17 15:33 - Physical Exam Vitals and I&O: Vital Signs Temp 98.1 F 08/19/17 04:00 Pulse 71 08/19/17 06:49 Resp 16 08/19/17 06:49 BP 119/52 08/19/17 06:49 Pulse Ox 96 08/19/17 06:49 Intake & Output 08/18/17 08/19/17 08/19/17 18:59 06:59 18:59 Intake Total 940 1150 710 Output Total 950 1350 Balance -10 1150 -640 Weight (lbs) 64.41 kg 64.41 kg Intake: Intake, IV Amount 560 1150 460 Levetiracetam 1000mg/ 100 100 100mL 1,000 mg In 100 ml @ 200 mls/hr IV BID [facility] Rx#:[id number] Meropenem 500 mg In 50 50 50 Sodium Chloride 0.9% 50 ml @ 100 mls/hr IV Q8HR [facility] Rx#:[id number] Phenytoin 200 mg In 50 50 Sodium Chloride 0.9% 46 ml @ 100 mls/hr IV Q12HR [facility] Rx#:[id number] Sodium Chloride 0.9% 1, 1000 000 ml @ 100 mls/hr IV . Q10H [facility] Rx#:[id number] Valproate Sodium 1,000 mg 110 110 In Sodium Chloride 0.9% 100 ml @ 100 mls/hr IV Q12HR [facility] Rx#:[id number] Vancomycin HCl 1 gm In 250 250 Sodium Chloride 0.9% 250 ml @ 165 mls/hr IV Q12HR@ 0900,2100 J[facility] Rx#: [id number] Oral 380 250 Output: Urine 950 1350 Other: # Bowel Movements 0 0 Stool Characteristics Soft Soft Active Medications: Current Medications Acetaminophen (Tylenol) 650 mg PO Q6HR PRN PRN Reason: Pain (Mild) Stop: 10/12/17 12:05 Acetaminophen/Hydrocodone Bitart ([place] 5mg/325mg) 1 tab PO Q4H PRN PRN Reason: mod pain Stop: 10/12/17 11:38 Last Admin: 08/19/17 04:37 Dose: 1 tab Ascorbic Acid (Vitamin C) 500 mg PO BID [facility] Stop: 10/12/17 16:59 Last Admin: 08/19/17 09:42 Dose: Not Given Atorvastatin Calcium (Lipitor) 20 mg PO HS [facility] Stop: 10/12/17 20:59 Last Admin: 08/18/17 21:35 Dose: 20 mg Calcium/Vitamin D (Oscal W/Vitamin D) 1 tab PO BID [facility] Stop: 10/12/17 16:59 Last Admin: 08/19/17 09:00 Dose: 1 tab Duloxetine HCl (Cymbalta) 60 mg PO DAILY [facility] PRN Reason: Protocol Stop: 10/13/17 08:59 Last Admin: 08/19/17 09:04 Dose: 60 mg Gabapentin (Neurontin) 300 mg PO TID [facility] Stop: 10/12/17 13:59 Last Admin: 08/19/17 09:00 Dose: 300 mg Sodium Chloride (Nacl 0.9%) 1,000 mls @ 100 mls/hr IV .Q10H [facility] Stop: 10/11/17 22:28 Last Admin: 08/19/17 04:55 Dose: 100 mls/hr Meropenem 500 mg/ Sodium (Chloride) 50 mls @ 100 mls/hr IV Q8HR [facility] Stop: 10/13/17 20:59 Last Infusion: 08/19/17 07:31 Dose: Infused Valproate Sodium 1,000 mg/ (Sodium Chloride) 110 mls @ 100 mls/hr IV Q12HR [facility] Stop: 10/15/17 12:59 Last Infusion: 08/19/17 07:30 Dose: Infused Vancomycin HCl 1 gm/ Sodium (Chloride) 250 mls @ 165 mls/hr IV Q12HR@0900,2100 [facility] Stop: 10/16/17 11:29 Last Admin: 08/19/17 09:00 Dose: 165 mls/hr Lacosamide (Vimpat) 100 mg PO BID [facility] Stop: 10/14/17 16:59 Last Admin: 08/19/17 09:00 Dose: 100 mg Lactulose (Cephulac) 20 gm PO DAILY [facility] Stop: 10/13/17 08:59 Last Admin: 08/19/17 09:50 Dose: Not Given Lamotrigine (Lamictal) 50 mg PO DAILY [facility] PRN Reason: Protocol Stop: 10/13/17 08:59 Last Admin: 08/19/17 09:00 Dose: 50 mg Levetiracetam (Keppra) 1,000 mg PO BID [facility] Stop: 10/18/17 09:59 Lorazepam (Ativan) 1 mg IVP Q30M PRN; Protocol PRN Reason: siezure Stop: 10/12/17 22:01 Last Admin: 08/18/17 22:04 Dose: 1 mg Miscellaneous (Vancomycin Iv Per Pharmacy) 1 ea [facility] PRN PRN PRN Reason: PROTOCOL Stop: 10/16/17 09:29 Montelukast Sodium (Singulair) 10 mg PO DAILY [facility] Stop: 10/13/17 08:59 Last Admin: 08/19/17 09:00 Dose: 10 mg Phenobarbital (Phenobarbital) 64.8 mg PO TID [facility] Stop: 10/12/17 08:59 Last Admin: 08/19/17 09:07 Dose: 64.8 mg Phenytoin (Dilantin) 200 mg PO BID [facility] Stop: 10/18/17 09:59 Rivaroxaban (Xarelto) 20 mg PO QDPC [facility] Stop: 10/13/17 08:29 Last Admin: 08/19/17 09:07 Dose: 20 mg General: Alert, Cooperative, No acute distress HEENT: Atraumatic, PERRLA, EOMI Neck: Supple, JVD Cardiovascular: Regular rate, Normal S1, Normal S2 Lungs: Clear to auscultation Abdomen: Bowel sounds, Soft Assessment/Plan - Problem List Patient Problems: All Active Problems LEFT EAR PAIN WITH BLOODY DRAINAGE (Acute) - Assessment Assessment: BT Sz Sz DO per hx AME R foot wound infection with Pseudomonas [place] and Staph Aureus MDRO ESBL UTI Dsylipid R medial malleolus ulcer Possible Left ear otitis - Plan Plan: Dr. Bear following. Pt seen and eval. More calm and collected today. Still refusing care at times. Has IV access now, as anesthesia insert central line on 08/17/16. Sx and wound care seeing her for R medial malleolus ulcer. Pt refused the US of LE. No sz last night. On IV Meropenam for esbl uti. Added Vanco on 08/17/17 for the Staph. No n,v,d or cp. No pain. Added Cortisporin otic drops to left ear as pt still has pain at times. Looked in left ear again. There is no discharge or inflammation. Nutritional Asmnt/Malnutr-PDOC - Dietary Evaluation Malnutrition Findings (Please click <Entered> for more info): Nutritional Asmnt/Malnutrition Start: 08/17/17 14: 14 Text: Status: Complete Freq: Document 08/17/17 14:14 ROBYN (Rec: 08/17/17 14:23 EDWIN [email or web address]) Nutritional Asmnt/Malnutrition Patient General Information Nutritional Screening High Risk Diagnosis GLENNY, CCHO Pertinent Medical Hx/Surgical Hx HTN, CAD, peripheral arterial disease, hyperlipidemia, CVA, seizure, peripheral neuropathy , constipation, GERD, unsteady gait, muscle weakness, left AKA, major depressive disorder Subjective Information Pt seen sleeping in bed at the time of visit. Spoke with RN, pt refused breakfast and lunch today, including meds. Per nurse note, pt had late dinner yesterday 08/16, consumed 90% of dinener with assist. Pertinent Medications viatmin C, calcium/vit D, nacl 0.9%, vancomycin Pertinent Labs 08/17 Na 140, K 4.2, Cl 107, Cr 13, Cr 0.6, Glucose 112 Ca 9. 6 Nutritional Hx/Data Height 1.55 m Height (Calculated Centimeters) 154.9 Current Weight (lbs) 64.41 kg Weight (Calculated Kilograms) 64.4 Weight (Calculated Grams) 26358.1 [place] Body Weight 105 % [place] Body Weight 135 Body Mass Index (BMI) 26.8 Weight Status Overweight GI Symptoms GI Symptoms None Last BM none Food Allergies Yes: shellfish Skin Integrity/Comment: non-pitting edema to right lower extremity pressure area to right loer leg and right dorsal foot, decubitus ulceration to right lower lateral foot Estimated Nutritional Goals BEE in Kcals: Using Current wt Calories/Kcals/Kg 25-30 Kcals Calculated 2073-1545 considering bedbound Protein: Using Current wt Protein g/k-1.2 Protein Calculated 65-78 Fluid: ml 3599-8692 Nutritional Problem 1. Problem Problem increased nutrition needs ( calorie and protein) Etiology increased metabolic demand for wound healing Signs/Symptoms: pressure area and decubitus ulceration Malnutrition Alert Protein-Calorie Malnutrition N/A Is there a minimum of two criteria No selected? Query Text:Check all the applicable criteria. A minimum of two criteria are recommended for diagnosis of either severe or non-severe malnutrition. Intervention/Recommendation Comments 1. Continue with current diet as ordered. If PO intake continue low, MD to consider appetite stimulant. 2. Monitor PO intake, wt, labs and skin integrity 3. F/U as high risk in 2-3 days, 08/19-08/20 Expected Outcomes/Goals Expected Outcomes/Goals 1. PO intake to meet at least 75% of nutritional needs. 2. Wt stability, wound to heal , labs to approach WNL.
[2017-08-19] MEDS: Valproate Sodium 1,000 MG in Sodium Chloride 0.9% 100 ML IV SCH ×2 (10:19→20:38)
--- NOTE | 2017-08-19 13:18 | Diagnostic Imaging Report ---
Right lower extremity Doppler arterial ultrasound exam HISTORY: Peripheral vascular disease, pain Sonographic sector images were obtained through the arterial system of the right leg. Associated Doppler data was obtained. The exam demonstrates abnormal monophasic waveforms of the common femoral, superficial femoral, popliteal, anterior tibial, posterior tibial, and dorsalis pedis arteries. Elevated velocities noted above the knee. Increase in velocity also noted within the right posterior tibial artery. Sonographic images demonstrates moderate diffuse atherosclerotic changes throughout the arterial system. No reid occlusion identified. The ankle-brachial index is normal (1.2). IMPRESSION: 1. Evidence of moderate diffuse atherosclerotic changes. No reid occlusion. If needed, a CT angiographic study would provide additional detail.
[2017-08-19] MEDS: Cortisporin Otic Soln 10mL Bottle LEFT EAR SCH ×3 (13:55→20:38)
[2017-08-19] MEDS: Atorvastatin Calcium 10 MG TAB PO SCH (20:41)
--- NOTE | 2017-08-20 00:54 | Progress Notes ---
DATE: 08/19/2017 SUBJECTIVE: The patient in ICU. Awake. No seizures. With interaction she will talk. MEDICATIONS: Cymbalta, gabapentin, lacosamide 100 mg b.i.d., lamotrigine 50 mg, Keppra 1000 mg, lorazepam p.r.n., phenobarbital t.i.d., phenytoin. Valproate. The patient at the moment on vancomycin. OBJECTIVE: VITAL SIGNS: Temperature 98.2, blood pressure 120/55, pulse is 70. NECK: Supple. No bruits. HEART: Sounds S1, S2. LUNGS: Clear. EXTREMITIES: The patient moving extremities. No marked weakness. ASSESSMENT: 1. Seizure, stable. 2. Encephalopathy. 3. Sepsis. 4. Right foot infection. 5. Dyslipidemia. PLAN: Continue present treatment. Once the seizures are stable, suggest I will gradually reduce some of the medication, but for the time being continue. JOB# [id number]
--- NOTE | 2017-08-20 01:08 | Progress Notes ---
DATE: 08/19/2017 SUBJECTIVE: Chart reviewed and the patient interviewed. Also discussed the patient's condition with the staff and reviewed records and labs. The patient continued to be anxious and continued to be in a depressed mood, but denies any thoughts of suicide or homicide. The patient also is more cooperative with her treatment and she has been more compliant with taking her medications and with staff. She also continued to take Cymbalta. Also, appetite is improved. ASSESSMENT: The patient seems to be less depressed. TREATMENT PLAN: We will continue to monitor her behavior and her condition closely. Also, we will continue monitoring psychotropic medications and continue to follow up. [facility]# [id number]
[2017-08-20] MEDS: Meropenem 500 MG in Sodium Chloride 0.9% 50 ML IV SCH ×3 (05:01→22:32)
[2017-08-20] MEDS: Sodium Chloride 0.9% 1,000 ML IV SCH ×2 (06:39→06:57)
--- NOTE | 2017-08-20 07:54 | General Progress Note ---
Subjective - Review of Systems Service Date: 08/20/17 Subjective: Pt seen and eval. More calm and collected today. She took most of her oral meds this am. Has IV access now, as anesthesia inserted central line on 08/17/16. Sx and wound care seeing her for R medial malleolus ulcer. No sz last night. On IV Meropenam for esbl uti. Added Vanco on 08/17/17 for the Staph. No n,v,d or cp. No pain. Objective - Results Result Diagrams: 08/19/17 04:46 08/19/17 04:46 Recent Labs: Laboratory Last Values WBC 4.6 Th/cmm (4.8-10.8) L 08/19/17 04:46 RBC 3.03 Mil/cmm (3.80-5.10) L 08/19/17 04:46 Hgb 8.8 gm/dL (12-16) L 08/19/17 04:46 Hct 27.0 % (41.0-60) L 08/19/17 04:46 MCV 89.2 fl (81-100) 08/19/17 04:46 MCH 29.0 pg (27.0-31.0) 08/19/17 04:46 MCHC Differential 32.5 pg (28.0-36.0) 08/19/17 04:46 RDW 15.8 % (11.5-20.0) 08/19/17 04:46 Plt Count 130 Th/cmm (150-400) L 08/19/17 04:46 MPV 7.7 fl 08/19/17 04:46 Neutrophils % 62.9 % (40.0-80.0) 08/19/17 04:46 Lymphocytes % 21.0 % (20.0-50.0) 08/19/17 04:46 Monocytes % 5.4 % (2.0-10.0) 08/19/17 04:46 Eosinophils % 10.0 % (0.0-5.0) H 08/19/17 04:46 Basophils % 0.7 % (0.0-2.0) 08/19/17 04:46 Sodium 138 mEq/L (136-145) 08/19/17 04:46 Potassium 3.8 mEq/L (3.5-5.1) 08/19/17 04:46 Chloride 107 mEq/L (98-107) 08/19/17 04:46 Carbon Dioxide 28.5 mEq/L (21.0-31.0) 08/19/17 04:46 Anion Gap 6.3 (7.0-16.0) L 08/19/17 04:46 BUN 12 mg/dL (7-25) 08/19/17 04:46 Creatinine 0.6 mg/dL (0.6-1.2) 08/19/17 04:46 Est GFR ( Amer) > 60.0 ml/min (>90) 08/19/17 04:46 Est GFR (Non-Af Amer) > 60.0 ml/min 08/19/17 04:46 BUN/Creatinine Ratio 20.0 08/19/17 04:46 Glucose 98 mg/dL (70-105) 08/19/17 04:46 POC Glucose 99 MG/DL (70 - 105) 08/13/17 21:50 Calcium 8.7 mg/dL (8.6-10.3) 08/19/17 04:46 Total Bilirubin 0.2 mg/dL (0.3-1.0) L 08/12/17 15:33 AST 15 U/L (13-39) 08/12/17 15:33 ALT 9 U/L (7-52) 08/12/17 15:33 Alkaline Phosphatase 173 U/L (34-104) H 08/12/17 15:33 Creatine Kinase 32 U/L (30-223) 08/12/17 15:33 Troponin I 0.01 ng/mL (0.01-0.05) 08/12/17 15:33 B-Natriuretic Peptide 25.1 pg/mL (5.0-100.0) 08/12/17 15:33 Total Protein 7.0 gm/dL (6.0-8.3) 08/12/17 15:33 Albumin 3.8 gm/dL (3.7-5.3) 08/12/17 15:33 Globulin 3.2 gm/dL 08/12/17 15:33 Albumin/Globulin Ratio 1.2 (1.0-1.8) 08/12/17 15:33 Urine Source CATH 08/12/17 17:00 Urine Color YELLOW 08/12/17 17:00 Urine Clarity CLOUDY (CLEAR) H 08/12/17 17:00 Urine pH 6.0 (4.6 - 8.0) 08/12/17 17:00 Ur Specific [place] 1.010 (1.005-1.030) 08/12/17 17:00 Urine Protein TRACE mg/dL (NEGATIVE) 08/12/17 17:00 Urine Glucose (UA) NEGATIVE mg/dL (NEGATIVE) 08/12/17 17:00 Urine Clinitest NEGATIVE mg/dL (NEGATIVE) 08/12/17 17:00 Urine Ketones NEGATIVE mg/dL (NEGATIVE) 08/12/17 17:00 Urine Blood MODERATE (NEGATIVE) H 08/12/17 17:00 Urine Nitrate POSITIVE (NEGATIVE) H 08/12/17 17:00 Urine Bilirubin NEGATIVE (NEGATIVE) 08/12/17 17:00 Urine Ictotest NEGATIVE (NEGATIVE) 08/12/17 17:00 Urine Urobilinogen 0.2 E.U./dL (0.2 - 1.0) 08/12/17 17:00 Ur Leukocyte Esterase LARGE (NEGATIVE) H 08/12/17 17:00 Urine RBC 5-10 /hpf (0-5) H 08/12/17 17:00 Urine WBC >100 /hpf (0-5) H 08/12/17 17:00 Ur Epithelial Cells MODERATE /lpf (FEW) 08/12/17 17:00 Urine Bacteria MANY /hpf (NONE SEEN) H 08/12/17 17:00 Vancomycin Trough 24.2 ug/mL (10-20) H 08/20/17 06:45 Phenytoin 7.0 ug/ml (10.0-20.0) L 08/18/17 08:15 Lamotrigine None Detected ug/mL (2.0-20.0) 08/15/17 15:44 Levetiracetam 21.7 ug/mL (10.0-40.0) 08/15/17 15:44 Phenobarbital 31.0 ug/ml (10-40.0) 08/12/17 15:33 - Physical Exam Vitals and I&O: Vital Signs Temp 97.6 F 08/20/17 04:00 Pulse 67 08/20/17 07:00 Resp 12 08/20/17 07:00 BP 142/65 08/20/17 07:00 Pulse Ox 94 08/20/17 07:00 Intake & Output 08/19/17 08/20/17 08/20/17 18:59 06:59 18:59 Intake Total 2120 1490 Output Total 1350 1450 1300 Balance 770 40 -1300 Weight (lbs) 64.41 kg 64.41 kg 65.118 kg Intake: Intake, IV Amount 1870 1490 Meropenem 500 mg In 100 100 Sodium Chloride 0.9% 50 ml @ 100 mls/hr IV Q8HR [facility] Rx#:[id number] Phenytoin 200 mg In 50 Sodium Chloride 0.9% 46 ml @ 100 mls/hr IV Q12HR [facility] Rx#:[id number] Sodium Chloride 0.9% 1, 1000 1030 000 ml @ 100 mls/hr IV . Q10H [facility] Rx#:[id number] Valproate Sodium 1,000 mg 220 110 In Sodium Chloride 0.9% 100 ml @ 100 mls/hr IV Q12HR [facility] Rx#:[id number] Vancomycin HCl 1 gm In 500 250 Sodium Chloride 0.9% 250 ml @ 165 mls/hr IV Q12HR@ 0900,2100 [facility] Rx#: [id number] Oral 250 Output: Urine 1350 1450 1300 Other: # Bowel Movements 0 0 0 Active Medications: Current Medications Acetaminophen (Tylenol) 650 mg PO Q6HR PRN PRN Reason: Pain (Mild) Stop: 10/12/17 12:05 Acetaminophen/Hydrocodone Bitart ([place] 5mg/325mg) 1 tab PO Q4H PRN PRN Reason: mod pain Stop: 10/12/17 11:38 Last Admin: 08/19/17 04:37 Dose: 1 tab Ascorbic Acid (Vitamin C) 500 mg PO BID [facility] Stop: 10/12/17 16:59 Last Admin: 08/19/17 18:36 Dose: Not Given Atorvastatin Calcium (Lipitor) 20 mg PO HS [facility] Stop: 10/12/17 20:59 Last Admin: 08/19/17 20:41 Dose: 20 mg Calcium/Vitamin D (Oscal W/Vitamin D) 1 tab PO BID [facility] Stop: 10/12/17 16:59 Last Admin: 08/19/17 18:36 Dose: Not Given Duloxetine HCl (Cymbalta) 60 mg PO DAILY [facility] PRN Reason: Protocol Stop: 10/13/17 08:59 Last Admin: 08/19/17 09:04 Dose: 60 mg Gabapentin (Neurontin) 300 mg PO TID [facility] Stop: 10/12/17 13:59 Last Admin: 08/19/17 20:40 Dose: 300 mg Sodium Chloride (Nacl 0.9%) 1,000 mls @ 100 mls/hr IV .Q10H [facility] Stop: 10/11/17 22:28 Last Admin: 08/20/17 06:57 Dose: 100 mls/hr Meropenem 500 mg/ Sodium (Chloride) 50 mls @ 100 mls/hr IV Q8HR [facility] Stop: 10/13/17 20:59 Last Infusion: 08/20/17 05:35 Dose: Infused Valproate Sodium 1,000 mg/ (Sodium Chloride) 110 mls @ 100 mls/hr IV Q12HR [facility] Stop: 10/15/17 12:59 Last Infusion: 08/19/17 21:45 Dose: Infused Vancomycin HCl 1 gm/ Sodium (Chloride) 250 mls @ 165 mls/hr IV Q12HR@0900,2100 [facility] Stop: 10/16/17 11:29 Last Infusion: 08/20/17 00:30 Dose: Infused Lacosamide (Vimpat) 100 mg PO BID [facility] Stop: 10/14/17 16:59 Last Admin: 08/19/17 18:44 Dose: Not Given Lactulose (Cephulac) 20 gm PO DAILY [facility] Stop: 10/13/17 08:59 Last Admin: 08/19/17 09:50 Dose: Not Given Lamotrigine (Lamictal) 50 mg PO DAILY [facility] PRN Reason: Protocol Stop: 10/13/17 08:59 Last Admin: 08/19/17 09:00 Dose: 50 mg Levetiracetam (Keppra) 1,000 mg PO BID [facility] Stop: 10/18/17 09:59 Last Admin: 08/19/17 18:45 Dose: Not Given Lorazepam (Ativan) 1 mg IVP Q30M PRN; Protocol PRN Reason: siezure Stop: 10/12/17 22:01 Last Admin: 08/19/17 23:24 Dose: 1 mg Miscellaneous (Vancomycin Iv Per Pharmacy) 1 ea [facility] PRN PRN PRN Reason: PROTOCOL Stop: 10/16/17 09:29 Montelukast Sodium (Singulair) 10 mg PO DAILY [facility] Stop: 10/13/17 08:59 Last Admin: 08/19/17 09:00 Dose: 10 mg Neomycin/Polymyxin/Hydrocortisone (Cortisporin Otic Soln) 4 drop LEFT EAR QID [facility] Stop: 10/18/17 12:59 Last Admin: 08/19/17 20:38 Dose: 4 drop Phenobarbital (Phenobarbital) 64.8 mg PO TID [facility] Stop: 10/12/17 08:59 Last Admin: 08/19/17 20:41 Dose: 64.8 mg Phenytoin (Dilantin) 200 mg PO BID [facility] Stop: 10/18/17 09:59 Last Admin: 08/19/17 18:45 Dose: Not Given Rivaroxaban (Xarelto) 20 mg PO QDPC [facility] Stop: 10/13/17 08:29 Last Admin: 08/19/17 09:07 Dose: 20 mg General: Alert, Cooperative, No acute distress HEENT: Atraumatic, PERRLA, EOMI Neck: Supple, JVD Cardiovascular: Regular rate, Normal S1, Normal S2 Lungs: Clear to auscultation Abdomen: Bowel sounds, Soft Assessment/Plan - Problem List Patient Problems: All Active Problems LEFT EAR PAIN WITH BLOODY DRAINAGE (Acute) - Assessment Assessment: BT Sz Sz DO per hx AME R foot wound infection with Pseudomonas [place] and Staph Aureus MDRO ESBL UTI Dsylipid R medial malleolus ulcer Possible Left ear otitis - Plan Plan: Dr. Bear following. Pt seen and eval. More calm and collected today. Still refusing care at times. Has IV access now, as anesthesia insert central line on 08/17/16. Sx and wound care seeing her for R medial malleolus ulcer. Pt refused the US of LE. No sz last night. On IV Meropenam for esbl uti. Added Vanco on 08/17/17 for the Staph. No n,v,d or cp. No pain. Added Cortisporin otic drops to left ear as pt still has pain at times. Looked in left ear again. There is no discharge or inflammation. Nutritional Asmnt/Malnutr-PDOC - Dietary Evaluation Malnutrition Findings (Please click <Entered> for more info): Nutritional Asmnt/Malnutrition Start: 08/17/17 14: 14 Text: Status: Complete Freq: Document 08/17/17 14:14 ROBYN (Rec: 08/17/17 14:23 ROBYN [email or web address]) Nutritional Asmnt/Malnutrition Patient General Information Nutritional Screening High Risk Diagnosis GLENNY, CCHO Pertinent Medical Hx/Surgical Hx HTN, CAD, peripheral arterial disease, hyperlipidemia, CVA, seizure, peripheral neuropathy , constipation, GERD, unsteady gait, muscle weakness, left AKA, major depressive disorder Subjective Information Pt seen sleeping in bed at the time of visit. Spoke with RN, pt refused breakfast and lunch today, including meds. Per nurse note, pt had late dinner yesterday 08/16, consumed 90% of dinener with assist. Pertinent Medications viatmin C, calcium/vit D, nacl 0.9%, vancomycin Pertinent Labs 08/17 Na 140, K 4.2, Cl 107, Cr 13, Cr 0.6, Glucose 112 Ca 9. 6 Nutritional Hx/Data Height 1.55 m Height (Calculated Centimeters) 154.9 Current Weight (lbs) 64.41 kg Weight (Calculated Kilograms) 64.4 Weight (Calculated Grams) 53515.1 [place] Body Weight 105 % [place] Body Weight 135 Body Mass Index (BMI) 26.8 Weight Status Overweight GI Symptoms GI Symptoms None Last BM none Food Allergies Yes: shellfish Skin Integrity/Comment: non-pitting edema to right lower extremity pressure area to right loer leg and right dorsal foot, decubitus ulceration to right lower lateral foot Estimated Nutritional Goals BEE in Kcals: Using Current wt Calories/Kcals/Kg 25-30 Kcals Calculated 7274-9205 considering bedbound Protein: Using Current wt Protein g/k-1.2 Protein Calculated 65-78 Fluid: ml 8559-5683 Nutritional Problem 1. Problem Problem increased nutrition needs ( calorie and protein) Etiology increased metabolic demand for wound healing Signs/Symptoms: pressure area and decubitus ulceration Malnutrition Alert Protein-Calorie Malnutrition N/A Is there a minimum of two criteria No selected? Query Text:Check all the applicable criteria. A minimum of two criteria are recommended for diagnosis of either severe or non-severe malnutrition. Intervention/Recommendation Comments 1. Continue with current diet as ordered. If PO intake continue low, MD to consider appetite stimulant. 2. Monitor PO intake, wt, labs and skin integrity 3. F/U as high risk in 2-3 days, 08/19-08/20 Expected Outcomes/Goals Expected Outcomes/Goals 1. PO intake to meet at least 75% of nutritional needs. 2. Wt stability, wound to heal , labs to approach WNL.
[2017-08-20] MEDS: Cortisporin Otic Soln 10mL Bottle LEFT EAR SCH ×4 (09:05→20:43)
[2017-08-20] MEDS: Calcium Carb/Vit D 500 mg/200 U Tab PO SCH ×2 (09:06→16:31)
[2017-08-20] MEDS: Multivitamin w/ Minerals Tab PO SCH (09:06)
[2017-08-20] MEDS: Lactulose 10 Gm/15 mL 30mL UDC PO SCH (09:06)
[2017-08-20] MEDS ORDERED: Sodium Chloride 0.9% 1,000 ML IV SCH (09:07)
[2017-08-20] MEDS: Valproate Sodium 1,000 MG in Sodium Chloride 0.9% 100 ML IV SCH ×2 (09:21→23:17)
--- NOTE | 2017-08-20 10:06 | General Progress Note ---
Subjective - Review of Systems Service Date: 08/20/17 Events since last encounter: doppler: severe PVD needs CTA but patient allergic to iodine Objective - Results Result Diagrams: 08/19/17 04:46 08/19/17 04:46 Recent Labs: Laboratory Last Values WBC 4.6 Th/cmm (4.8-10.8) L 08/19/17 04:46 RBC 3.03 Mil/cmm (3.80-5.10) L 08/19/17 04:46 Hgb 8.8 gm/dL (12-16) L 08/19/17 04:46 Hct 27.0 % (41.0-60) L 08/19/17 04:46 MCV 89.2 fl (81-100) 08/19/17 04:46 MCH 29.0 pg (27.0-31.0) 08/19/17 04:46 MCHC Differential 32.5 pg (28.0-36.0) 08/19/17 04:46 RDW 15.8 % (11.5-20.0) 08/19/17 04:46 Plt Count 130 Th/cmm (150-400) L 08/19/17 04:46 MPV 7.7 fl 08/19/17 04:46 Neutrophils % 62.9 % (40.0-80.0) 08/19/17 04:46 Lymphocytes % 21.0 % (20.0-50.0) 08/19/17 04:46 Monocytes % 5.4 % (2.0-10.0) 08/19/17 04:46 Eosinophils % 10.0 % (0.0-5.0) H 08/19/17 04:46 Basophils % 0.7 % (0.0-2.0) 08/19/17 04:46 Sodium 138 mEq/L (136-145) 08/19/17 04:46 Potassium 3.8 mEq/L (3.5-5.1) 08/19/17 04:46 Chloride 107 mEq/L (98-107) 08/19/17 04:46 Carbon Dioxide 28.5 mEq/L (21.0-31.0) 08/19/17 04:46 Anion Gap 6.3 (7.0-16.0) L 08/19/17 04:46 BUN 12 mg/dL (7-25) 08/19/17 04:46 Creatinine 0.6 mg/dL (0.6-1.2) 08/19/17 04:46 Est GFR ( Amer) > 60.0 ml/min (>90) 08/19/17 04:46 Est GFR (Non-Af Amer) > 60.0 ml/min 08/19/17 04:46 BUN/Creatinine Ratio 20.0 08/19/17 04:46 Glucose 98 mg/dL (70-105) 08/19/17 04:46 POC Glucose 99 MG/DL (70 - 105) 08/13/17 21:50 Calcium 8.7 mg/dL (8.6-10.3) 08/19/17 04:46 Total Bilirubin 0.2 mg/dL (0.3-1.0) L 08/12/17 15:33 AST 15 U/L (13-39) 08/12/17 15:33 ALT 9 U/L (7-52) 08/12/17 15:33 Alkaline Phosphatase 173 U/L (34-104) H 08/12/17 15:33 Creatine Kinase 32 U/L (30-223) 08/12/17 15:33 Troponin I 0.01 ng/mL (0.01-0.05) 08/12/17 15:33 B-Natriuretic Peptide 25.1 pg/mL (5.0-100.0) 08/12/17 15:33 Total Protein 7.0 gm/dL (6.0-8.3) 08/12/17 15:33 Albumin 3.8 gm/dL (3.7-5.3) 08/12/17 15:33 Globulin 3.2 gm/dL 08/12/17 15:33 Albumin/Globulin Ratio 1.2 (1.0-1.8) 08/12/17 15:33 Urine Source CATH 08/12/17 17:00 Urine Color YELLOW 08/12/17 17:00 Urine Clarity CLOUDY (CLEAR) H 08/12/17 17:00 Urine pH 6.0 (4.6 - 8.0) 08/12/17 17:00 Ur Specific [place] 1.010 (1.005-1.030) 08/12/17 17:00 Urine Protein TRACE mg/dL (NEGATIVE) 08/12/17 17:00 Urine Glucose (UA) NEGATIVE mg/dL (NEGATIVE) 08/12/17 17:00 Urine Clinitest NEGATIVE mg/dL (NEGATIVE) 08/12/17 17:00 Urine Ketones NEGATIVE mg/dL (NEGATIVE) 08/12/17 17:00 Urine Blood MODERATE (NEGATIVE) H 08/12/17 17:00 Urine Nitrate POSITIVE (NEGATIVE) H 08/12/17 17:00 Urine Bilirubin NEGATIVE (NEGATIVE) 08/12/17 17:00 Urine Ictotest NEGATIVE (NEGATIVE) 08/12/17 17:00 Urine Urobilinogen 0.2 E.U./dL (0.2 - 1.0) 08/12/17 17:00 Ur Leukocyte Esterase LARGE (NEGATIVE) H 08/12/17 17:00 Urine RBC 5-10 /hpf (0-5) H 08/12/17 17:00 Urine WBC >100 /hpf (0-5) H 08/12/17 17:00 Ur Epithelial Cells MODERATE /lpf (FEW) 08/12/17 17:00 Urine Bacteria MANY /hpf (NONE SEEN) H 08/12/17 17:00 Vancomycin Trough 24.2 ug/mL (10-20) H 08/20/17 06:45 Phenytoin 7.0 ug/ml (10.0-20.0) L 08/18/17 08:15 Lamotrigine None Detected ug/mL (2.0-20.0) 08/15/17 15:44 Levetiracetam 21.7 ug/mL (10.0-40.0) 08/15/17 15:44 Phenobarbital 31.0 ug/ml (10-40.0) 08/12/17 15:33 - Physical Exam Vitals and I&O: Vital Signs Temp 97.5 F 08/20/17 08:00 Pulse 74 08/20/17 09:00 Resp 13 08/20/17 09:00 BP 141/66 08/20/17 09:00 Pulse Ox 97 08/20/17 09:00 Intake & Output 08/19/17 08/20/17 08/20/17 18:59 06:59 18:59 Intake Total 2120 1490 Output Total 1350 1450 1300 Balance 770 40 -1300 Weight (lbs) 64.41 kg 64.41 kg 65.118 kg Intake: Intake, IV Amount 1870 1490 Meropenem 500 mg In 100 100 Sodium Chloride 0.9% 50 ml @ 100 mls/hr IV Q8HR [facility] Rx#:[id number] Phenytoin 200 mg In 50 Sodium Chloride 0.9% 46 ml @ 100 mls/hr IV Q12HR [facility] Rx#:[id number] Sodium Chloride 0.9% 1, 1000 1030 000 ml @ 100 mls/hr IV . Q10H [facility] Rx#:[id number] Valproate Sodium 1,000 mg 220 110 In Sodium Chloride 0.9% 100 ml @ 100 mls/hr IV Q12HR [facility] Rx#:[id number] Vancomycin HCl 1 gm In 500 250 Sodium Chloride 0.9% 250 ml @ 165 mls/hr IV Q12HR@ 0900,2100 [facility] Rx#: [id number] Oral 250 Output: Urine 1350 1450 1300 Other: # Bowel Movements 0 0 0 Active Medications: Current Medications Acetaminophen (Tylenol) 650 mg PO Q6HR PRN PRN Reason: Pain (Mild) Stop: 10/12/17 12:05 Acetaminophen/Hydrocodone Bitart ([place] 5mg/325mg) 1 tab PO Q4H PRN PRN Reason: mod pain Stop: 10/12/17 11:38 Last Admin: 08/19/17 04:37 Dose: 1 tab Ascorbic Acid (Vitamin C) 500 mg PO BID [facility] Stop: 10/12/17 16:59 Last Admin: 08/20/17 09:06 Dose: Not Given Atorvastatin Calcium (Lipitor) 20 mg PO HS [facility] Stop: 10/12/17 20:59 Last Admin: 08/19/17 20:41 Dose: 20 mg Calcium/Vitamin D (Oscal W/Vitamin D) 1 tab PO BID [facility] Stop: 10/12/17 16:59 Last Admin: 08/20/17 09:06 Dose: Not Given Duloxetine HCl (Cymbalta) 60 mg PO DAILY [facility] PRN Reason: Protocol Stop: 10/13/17 08:59 Last Admin: 08/20/17 09:04 Dose: 60 mg Gabapentin (Neurontin) 300 mg PO TID [facility] Stop: 10/12/17 13:59 Last Admin: 08/20/17 09:04 Dose: 300 mg Meropenem 500 mg/ Sodium (Chloride) 50 mls @ 100 mls/hr IV Q8HR [facility] Stop: 10/13/17 20:59 Last Infusion: 08/20/17 05:35 Dose: Infused Valproate Sodium 1,000 mg/ (Sodium Chloride) 110 mls @ 100 mls/hr IV Q12HR [facility] Stop: 10/15/17 12:59 Last Admin: 08/20/17 09:21 Dose: 100 mls/hr Sodium Chloride (Nacl 0.9%) 1,000 mls @ 50 mls/hr IV .Q20H [facility] Stop: 10/19/17 09:06 Vancomycin HCl 750 mg/ Sodium (Chloride) 250 mls @ 167 mls/hr IV Q12HR@0900, 2100 [facility] Stop: 10/19/17 10:59 Lacosamide (Vimpat) 100 mg PO BID [facility] Stop: 10/14/17 16:59 Last Admin: 08/20/17 09:04 Dose: 100 mg Lactulose (Cephulac) 20 gm PO DAILY [facility] Stop: 10/13/17 08:59 Last Admin: 08/20/17 09:06 Dose: Not Given Lamotrigine (Lamictal) 50 mg PO DAILY [facility] PRN Reason: Protocol Stop: 10/13/17 08:59 Last Admin: 08/20/17 09:04 Dose: 50 mg Levetiracetam (Keppra) 1,000 mg PO BID [facility] Stop: 10/18/17 09:59 Last Admin: 08/20/17 09:04 Dose: 1,000 mg Lorazepam (Ativan) 1 mg IVP Q30M PRN; Protocol PRN Reason: siezure Stop: 10/12/17 22:01 Last Admin: 08/19/17 23:24 Dose: 1 mg Miscellaneous (Vancomycin Iv Per Pharmacy) 1 ea [facility] PRN PRN PRN Reason: PROTOCOL Stop: 10/16/17 09:29 Montelukast Sodium (Singulair) 10 mg PO DAILY [facility] Stop: 10/13/17 08:59 Last Admin: 08/20/17 09:04 Dose: 10 mg Neomycin/Polymyxin/Hydrocortisone (Cortisporin Otic Soln) 4 drop LEFT EAR QID [facility] Stop: 10/18/17 12:59 Last Admin: 08/20/17 09:05 Dose: 4 drop Phenobarbital (Phenobarbital) 64.8 mg PO TID [facility] Stop: 10/12/17 08:59 Last Admin: 08/20/17 09:04 Dose: 64.8 mg Phenytoin (Dilantin) 200 mg PO BID [facility] Stop: 10/18/17 09:59 Last Admin: 08/20/17 09:04 Dose: 200 mg Rivaroxaban (Xarelto) 20 mg PO QDPC [facility] Stop: 10/13/17 08:29 Last Admin: 08/20/17 09:04 Dose: 20 mg General: Alert, Cooperative, No acute distress HEENT: Atraumatic, PERRLA, EOMI Neck: Supple, JVD Cardiovascular: Regular rate, Normal S1, Normal S2 Lungs: Clear to auscultation Abdomen: Bowel sounds, Soft Assessment/Plan - Problem List Patient Problems: All Active Problems LEFT EAR PAIN WITH BLOODY DRAINAGE (Acute) Nutritional Asmnt/Malnutr-PDOC - Dietary Evaluation Malnutrition Findings (Please click <Entered> for more info): Nutritional Asmnt/Malnutrition Start: 08/17/17 14: 14 Text: Status: Complete Freq: Document 08/17/17 14:14 HEN (Rec: 08/17/17 14:23 LCHEN [email or web address]) Nutritional Asmnt/Malnutrition Patient General Information Nutritional Screening High Risk Diagnosis GLENNY, CCHO Pertinent Medical Hx/Surgical Hx HTN, CAD, peripheral arterial disease, hyperlipidemia, CVA, seizure, peripheral neuropathy , constipation, GERD, unsteady gait, muscle weakness, left AKA, major depressive disorder Subjective Information Pt seen sleeping in bed at the time of visit. Spoke with RN, pt refused breakfast and lunch today, including meds. Per nurse note, pt had late dinner yesterday 08/16, consumed 90% of dinener with assist. Pertinent Medications viatmin C, calcium/vit D, nacl 0.9%, vancomycin Pertinent Labs 08/17 Na 140, K 4.2, Cl 107, Cr 13, Cr 0.6, Glucose 112 Ca 9. 6 Nutritional Hx/Data Height 1.55 m Height (Calculated Centimeters) 154.9 Current Weight (lbs) 64.41 kg Weight (Calculated Kilograms) 64.4 Weight (Calculated Grams) 05995.1 [place] Body Weight 105 % [place] Body Weight 135 Body Mass Index (BMI) 26.8 Weight Status Overweight GI Symptoms GI Symptoms None Last BM none Food Allergies Yes: shellfish Skin Integrity/Comment: non-pitting edema to right lower extremity pressure area to right loer leg and right dorsal foot, decubitus ulceration to right lower lateral foot Estimated Nutritional Goals BEE in Kcals: Using Current wt Calories/Kcals/Kg 25-30 Kcals Calculated 7920-9262 considering bedbound Protein: Using Current wt Protein g/k-1.2 Protein Calculated 65-78 Fluid: ml 4622-4233 Nutritional Problem 1. Problem Problem increased nutrition needs ( calorie and protein) Etiology increased metabolic demand for wound healing Signs/Symptoms: pressure area and decubitus ulceration Malnutrition Alert Protein-Calorie Malnutrition N/A Is there a minimum of two criteria No selected? Query Text:Check all the applicable criteria. A minimum of two criteria are recommended for diagnosis of either severe or non-severe malnutrition. Intervention/Recommendation Comments 1. Continue with current diet as ordered. If PO intake continue low, MD to consider appetite stimulant. 2. Monitor PO intake, wt, labs and skin integrity 3. F/U as high risk in 2-3 days, 08/19-08/20 Expected Outcomes/Goals Expected Outcomes/Goals 1. PO intake to meet at least 75% of nutritional needs. 2. Wt stability, wound to heal , labs to approach WNL.
[2017-08-20] MEDS ORDERED: Probiotic Screen MC PRN (16:30)
[2017-08-20] MEDS: Atorvastatin Calcium 10 MG TAB PO SCH (20:42)
[2017-08-20] MEDS: Hydrocodone/APAP 5mg/325mg Tab PO PRN (22:04)
[2017-08-21] MEDS: Meropenem 500 MG in Sodium Chloride 0.9% 50 ML IV SCH ×4 (05:29→22:51)
[2017-08-21 07:52] LABS: % BASOPHILS 0.7 % (0.0-2.0); % EOSINOPHILS 10.5 % (0.0-5.0); % LYMPHOCYTES 29.3 % (20.0-50.0); % MONOCYTES 6.5 % (2.0-10.0); EOSINOPHILE ABSOLUTE 0.4 Th/cmm (0.1-0.4); HEMOGLOBIN 10.3 gm/dL (12-16); LYMPHOCYTE ABSOLUTE 1.1 Th/cmm (1.5-3.0); MEAN CELL VOLUME 88.9 fl (81-100); MEAN CORPUSCULAR HEMOGLOBIN 28.8 pg (27.0-31.0); MEAN CORPUSCULAR HGB CONC 32.4 pg (28.0-36.0); MEAN PLATELET VOLUME 8.3 fl; MONOCYTE ABSOLUTE 0.2 Th/cmm (0.3-1.0); PLATELET COUNT 129 Th/cmm (150-400); RED BLOOD COUNT 3.57 Mil/cmm (3.80-5.10); RED CELL DISTRIBUTION WIDTH 15.9 % (11.5-20.0)
[2017-08-21 07:59] LABS: ANION GAP 7.6 (7.0-16.0); BUN - UREA NITROGEN 13 mg/dL (7-25); CALCIUM SERUM 9.3 mg/dL (8.6-10.3); CARBON DIOXIDE 31.2 mEq/L (21.0-31.0); CHLORIDE 108 mEq/L (98-107); CREATININE - SERUM 0.5 mg/dL (0.6-1.2); GFR AFRICAN-AMERICAN > 60.0 ml/min (>90); GFR NON AFRICAN-AMERICAN > 60.0 ml/min; GLUCOSE 93 mg/dL (70-105); POTASSIUM SERUM 3.8 mEq/L (3.5-5.1); SODIUM SERUM 143 mEq/L (136-145)
[2017-08-21 08:32] LABS: WHITE BLOOD COUNT 3.7 Th/cmm (4.8-10.8)
[2017-08-21 08:33] LABS: HEMATOCRIT 31.8 % (41.0-60)
[2017-08-21] MEDS: Lactobacillus Rhamnosus GG 15 Billion CFU CAP.SPRINK PO SCH (08:43)
[2017-08-21] MEDS: Cortisporin Otic Soln 10mL Bottle LEFT EAR SCH ×5 (08:50→22:52)
[2017-08-21] MEDS: Calcium Carb/Vit D 500 mg/200 U Tab PO SCH ×2 (08:52→17:39)
--- NOTE | 2017-08-21 09:57 | Diagnostic Imaging Report ---
Portable chest x-ray HISTORY: Breath Compared with prior exam of August 17, 2017, a left jugular vascular catheter is seen with the tip in the region of the left internal jugular vein near the brachiocephalic vein above the level of the aortic arch. No change in position since the last study. Faint hazy infiltrate noted in the right lower lobe. Pneumonia cannot be excluded. Clinical correlation is needed. IMPRESSION: 1. Vascular catheter placement as noted above 2. Faint infiltrate right lower lobe. Pneumonia cannot be excluded.
--- NOTE | 2017-08-21 10:21 | Discharge Summary ---
DATE OF DISCHARGE: 08/21/2017 CAUSE OF ADMISSION: The patient is a 57-year-old female with history of seizure disorder, hypertension, left AKA and neuropathy. She presented to the ER with the left ear pain along with some yellowish discharge. The pain started at [facility]. She states that there was no trauma started abruptly. There are no fevers or chills. She also had a breakthrough seizure. ADMITTING DIAGNOSES: 1. Breakthrough seizure. 2. Hyperlipidemia. 3. Neuropathy. 4. Allergic rhinitis. 5. Hypertension. 6. Constipation. 7. Left ear otitis media. DISCHARGE DIAGNOSES: 1. Left otitis media, improved. 2. Breakthrough seizure. 3. General anxiety disorder. 4. Right foot wound with Pseudomonas aeruginosa and Staphylococcus aureus. 5. Multi-drug resistant organisms, extended-spectrum beta-lactamase urinary tract infection. 6. Dyslipidemia. 7. Right medial malleolus ulcer. 8. As mentioned left ear otitis media. SUMMARY OF HOSPITAL COURSE: Dr. Bear was following. He added Keppra and Dilantin to her seizure medication. Unfortunately, the patient has been exhibiting a seizure-like activity while she is awake and alert. There have been no convincing seizures for at least 3 days now. She has been refusing care at times. There was no IV access, so we did do a central line. The central line is now leaking; however, she has already finished one week of IV meropenem and she has been on IV vancomycin as well. They both were based on the susceptibility report. Her left ear is no longer hurting. She has been on Cortisporin otic ear drops left ear and I looked myself, there are no signs of discharge or inflammation at least for the last 3 days. She is stable to be discharged back to the correction facility. PHYSICAL EXAMINATION: VITAL SIGNS: Temperature is 97.2 degrees, heart rate is 70, respirations 20, blood pressure 139/66. Currently, no pain. GENERAL: No acute distress, awake. She is now alert. HEENT: No acute issues. Left ear does not exhibit any signs of infection. I looked over the otoscope. NECK: Trachea is midline. CARDIOVASCULAR: Regular rate and rhythm. SKIN: No rashes. PSYCHIATRIC: She has labile mood. LABORATORY DATA: White count is 3.7; hemoglobin 10.3; platelet count 129,000. Sodium 143, potassium 3.8, chloride 100, bicarbonate 31.2, BUN 13, creatinine 0.5. UA is positive for UTI. The patient's arterial Doppler study was ordered again and she refused that the first time. We ordered it because of the wound on the malleolus shows diffuse atherosclerotic changes. No reid occlusion. CONSULTS: Dr. Briscoe for Surgery, Dr. Bear for neuro, and Dr. Barnett for Psychiatry. DISPOSITION: She is being discharged back to correction facility. MEDICATIONS: All medication reviewed and reconciled. I have documented the changes, especially regarding the new seizure medications and Cortisporin drops as well. JOB# [id number]
[2017-08-21] MEDS: Lactulose 10 Gm/15 mL 30mL UDC PO SCH (10:48)
[2017-08-21] MEDS: Multivitamin w/ Minerals Tab PO SCH (10:48)
[2017-08-21] MEDS: Atorvastatin Calcium 10 MG TAB PO SCH (22:33)
[2017-08-22] MEDS: Meropenem 500 MG in Sodium Chloride 0.9% 50 ML IV SCH ×3 (06:39→20:48)
[2017-08-22 08:00] LABS: % BASOPHILS 1.6 % (0.0-2.0); % EOSINOPHILS 8.5 % (0.0-5.0); % LYMPHOCYTES 25.9 % (20.0-50.0); % MONOCYTES 6.1 % (2.0-10.0); % NEUTROPHILS 57.9 % (40.0-80.0); BASOPHILE ABSOLUTE 0.1 Th/cumm (0-0.2); EOSINOPHILE ABSOLUTE 0.4 Th/cmm (0.1-0.4); HEMATOCRIT 30.9 % (41.0-60); HEMOGLOBIN 10.6 gm/dL (12-16); LYMPHOCYTE ABSOLUTE 1.3 Th/cmm (1.5-3.0); MEAN CELL VOLUME 87.5 fl (81-100); MEAN CORPUSCULAR HGB CONC 34.3 pg (28.0-36.0); MEAN PLATELET VOLUME 7.7 fl; MONOCYTE ABSOLUTE 0.3 Th/cmm (0.3-1.0); NEUTROPHILE ABSOLUTE 3.1 Th/cmm (1.8-8.0); PLATELET COUNT 154 Th/cmm (150-400); RED BLOOD COUNT 3.53 Mil/cmm (3.80-5.10); RED CELL DISTRIBUTION WIDTH 15.6 % (11.5-20.0)
[2017-08-22 08:01] LABS: WHITE BLOOD COUNT 5.2 Th/cmm (4.8-10.8)
--- NOTE | 2017-08-22 08:02 | General Progress Note ---
Subjective - Review of Systems Service Date: 08/22/17 Subjective: Pt seen and eval. More calm and collected today. She's been non complaint with care and meds at times. Has IV access now, as anesthesia inserted central line on 08/17/16. However, central line has been leaking. Sx and wound care seeing her for R medial malleolus ulcer. No sz last night. On IV Meropenam for esbl uti. Added Vanco on 08/17/17 for the Staph. No n,v,d or cp. No pain. Pt's DC was not carried out on 08/21/17 as SNF said there was not bed. Objective - Results Result Diagrams: 08/21/17 06:36 08/21/17 06:36 Recent Labs: Laboratory Last Values WBC 3.7 Th/cmm (4.8-10.8) L 08/21/17 06:36 RBC 3.57 Mil/cmm (3.80-5.10) L 08/21/17 06:36 Hgb 10.3 gm/dL (12-16) L 08/21/17 06:36 Hct 31.8 % (41.0-60) L D 08/21/17 06:36 MCV 88.9 fl (81-100) 08/21/17 06:36 MCH 28.8 pg (27.0-31.0) 08/21/17 06:36 MCHC Differential 32.4 pg (28.0-36.0) 08/21/17 06:36 RDW 15.9 % (11.5-20.0) 08/21/17 06:36 Plt Count 129 Th/cmm (150-400) L 08/21/17 06:36 MPV 8.3 fl 08/21/17 06:36 Neutrophils % 53.0 % (40.0-80.0) 08/21/17 06:36 Lymphocytes % 29.3 % (20.0-50.0) 08/21/17 06:36 Monocytes % 6.5 % (2.0-10.0) 08/21/17 06:36 Eosinophils % 10.5 % (0.0-5.0) H 08/21/17 06:36 Basophils % 0.7 % (0.0-2.0) 08/21/17 06:36 Sodium 143 mEq/L (136-145) 08/21/17 06:36 Potassium 3.8 mEq/L (3.5-5.1) 08/21/17 06:36 Chloride 108 mEq/L (98-107) H 08/21/17 06:36 Carbon Dioxide 31.2 mEq/L (21.0-31.0) H 08/21/17 06:36 Anion Gap 7.6 (7.0-16.0) 08/21/17 06:36 BUN 13 mg/dL (7-25) 08/21/17 06:36 Creatinine 0.5 mg/dL (0.6-1.2) L 08/21/17 06:36 Est GFR ( Amer) > 60.0 ml/min (>90) 08/21/17 06:36 Est GFR (Non-Af Amer) > 60.0 ml/min 08/21/17 06:36 BUN/Creatinine Ratio 26.0 08/21/17 06:36 Glucose 93 mg/dL (70-105) 08/21/17 06:36 POC Glucose 99 MG/DL (70 - 105) 08/13/17 21:50 Calcium 9.3 mg/dL (8.6-10.3) 08/21/17 06:36 Total Bilirubin 0.2 mg/dL (0.3-1.0) L 08/12/17 15:33 AST 15 U/L (13-39) 08/12/17 15:33 ALT 9 U/L (7-52) 08/12/17 15:33 Alkaline Phosphatase 173 U/L (34-104) H 08/12/17 15:33 Creatine Kinase 32 U/L (30-223) 08/12/17 15:33 Troponin I 0.01 ng/mL (0.01-0.05) 08/12/17 15:33 B-Natriuretic Peptide 25.1 pg/mL (5.0-100.0) 08/12/17 15:33 Total Protein 7.0 gm/dL (6.0-8.3) 08/12/17 15:33 Albumin 3.8 gm/dL (3.7-5.3) 08/12/17 15:33 Globulin 3.2 gm/dL 08/12/17 15:33 Albumin/Globulin Ratio 1.2 (1.0-1.8) 08/12/17 15:33 Urine Source CATH 08/12/17 17:00 Urine Color YELLOW 08/12/17 17:00 Urine Clarity CLOUDY (CLEAR) H 08/12/17 17:00 Urine pH 6.0 (4.6 - 8.0) 08/12/17 17:00 Ur Specific [place] 1.010 (1.005-1.030) 08/12/17 17:00 Urine Protein TRACE mg/dL (NEGATIVE) 08/12/17 17:00 Urine Glucose (UA) NEGATIVE mg/dL (NEGATIVE) 08/12/17 17:00 Urine Clinitest NEGATIVE mg/dL (NEGATIVE) 08/12/17 17:00 Urine Ketones NEGATIVE mg/dL (NEGATIVE) 08/12/17 17:00 Urine Blood MODERATE (NEGATIVE) H 08/12/17 17:00 Urine Nitrate POSITIVE (NEGATIVE) H 08/12/17 17:00 Urine Bilirubin NEGATIVE (NEGATIVE) 08/12/17 17:00 Urine Ictotest NEGATIVE (NEGATIVE) 08/12/17 17:00 Urine Urobilinogen 0.2 E.U./dL (0.2 - 1.0) 08/12/17 17:00 Ur Leukocyte Esterase LARGE (NEGATIVE) H 08/12/17 17:00 Urine RBC 5-10 /hpf (0-5) H 08/12/17 17:00 Urine WBC >100 /hpf (0-5) H 08/12/17 17:00 Ur Epithelial Cells MODERATE /lpf (FEW) 08/12/17 17:00 Urine Bacteria MANY /hpf (NONE SEEN) H 08/12/17 17:00 Vancomycin Trough 24.2 ug/mL (10-20) H 08/20/17 06:45 Phenytoin 7.0 ug/ml (10.0-20.0) L 08/18/17 08:15 Lamotrigine None Detected ug/mL (2.0-20.0) 08/15/17 15:44 Levetiracetam 21.7 ug/mL (10.0-40.0) 08/15/17 15:44 Phenobarbital 31.0 ug/ml (10-40.0) 08/12/17 15:33 - Physical Exam Vitals and I&O: Vital Signs Temp 98.2 F 08/21/17 23:00 Pulse 75 08/22/17 07:11 Resp 18 08/22/17 07:11 BP 138/68 08/21/17 23:00 Pulse Ox 94 08/22/17 07:11 Intake & Output 08/21/17 08/22/17 08/22/17 18:59 06:59 18:59 Intake Total 1150 Output Total 1650 Balance -500 Weight (lbs) 65.862 kg Intake: Intake, IV Amount 250 Vancomycin HCl 750 mg In 250 Sodium Chloride 0.9% 250 ml @ 167 mls/hr IV Q12HR@ 0900,2100 [facility] Rx#: [id number] Oral 900 Output: Urine 1650 Other: # Bowel Movements 1 Stool Characteristics Formed Brown Active Medications: Current Medications Acetaminophen (Tylenol) 650 mg PO Q6HR PRN PRN Reason: Pain (Mild) Stop: 10/12/17 12:05 Acetaminophen/Hydrocodone Bitart ([place] 5mg/325mg) 1 tab PO Q4H PRN PRN Reason: mod pain Stop: 10/12/17 11:38 Last Admin: 08/20/17 22:04 Dose: 1 tab Ascorbic Acid (Vitamin C) 500 mg PO BID [facility] Stop: 10/12/17 16:59 Last Admin: 08/21/17 17:40 Dose: Not Given Atorvastatin Calcium (Lipitor) 20 mg PO HS [facility] Stop: 10/12/17 20:59 Last Admin: 08/21/17 22:33 Dose: 20 mg Calcium/Vitamin D (Oscal W/Vitamin D) 1 tab PO BID [facility] Stop: 10/12/17 16:59 Last Admin: 08/21/17 17:39 Dose: Not Given Divalproex Sodium (Depakote Er) 500 mg PO BID [facility] PRN Reason: Protocol Stop: 10/20/17 09:29 Last Admin: 08/21/17 17:39 Dose: 500 mg Duloxetine HCl (Cymbalta) 60 mg PO DAILY [facility] PRN Reason: Protocol Stop: 10/13/17 08:59 Last Admin: 08/21/17 08:44 Dose: 60 mg Gabapentin (Neurontin) 300 mg PO TID [facility] Stop: 10/12/17 13:59 Last Admin: 08/21/17 22:52 Dose: Not Given Vancomycin HCl 750 mg/ Sodium (Chloride) 250 mls @ 167 mls/hr IV Q12HR@0900, 2100 [facility] Stop: 08/23/17 10:59 Last Admin: 08/21/17 22:49 Dose: Not Given Meropenem 500 mg/ Sodium (Chloride) 50 mls @ 100 mls/hr IV Q8HR [facility] Stop: 08/23/17 14:13 Last Admin: 08/22/17 06:39 Dose: 100 mls/hr Lacosamide (Vimpat) 100 mg PO BID [facility] Stop: 10/14/17 16:59 Last Admin: 08/21/17 17:39 Dose: 100 mg Lactobacillus Rhamnosus (Culturelle 15b) 1 each PO DAILY [facility] Stop: 10/20/17 08:59 Last Admin: 08/21/17 08:43 Dose: 1 each Lactulose (Cephulac) 20 gm PO DAILY [facility] Stop: 10/13/17 08:59 Last Admin: 08/21/17 10:48 Dose: Not Given Lamotrigine (Lamictal) 50 mg PO DAILY [facility] PRN Reason: Protocol Stop: 10/13/17 08:59 Last Admin: 08/21/17 08:43 Dose: 50 mg Levetiracetam (Keppra) 1,000 mg PO BID [facility] Stop: 10/18/17 09:59 Last Admin: 08/21/17 17:39 Dose: 1,000 mg Miscellaneous (Probiotic Screen) 1 ea PRN PRN PRN Reason: PROTOCOL Stop: 10/19/17 16:29 Miscellaneous (Vancomycin Iv Per Pharmacy) 1 [facility] PRN PRN PRN Reason: PROTOCOL Stop: 08/23/17 14:13 Montelukast Sodium (Singulair) 10 mg PO DAILY [facility] Stop: 10/13/17 08:59 Last Admin: 08/21/17 08:42 Dose: 10 mg Neomycin/Polymyxin/Hydrocortisone (Cortisporin Otic Soln) 4 drop LEFT EAR QID [facility] Stop: 10/18/17 12:59 Last Admin: 08/21/17 22:52 Dose: Not Given Phenobarbital (Phenobarbital) 64.8 mg PO TID [facility] Stop: 10/12/17 08:59 Last Admin: 08/21/17 22:52 Dose: Not Given Phenytoin (Dilantin) 200 mg PO BID [facility] Stop: 10/18/17 09:59 Last Admin: 08/21/17 17:39 Dose: 200 mg Rivaroxaban (Xarelto) 20 mg PO QDPC [facility] Stop: 10/13/17 08:29 Last Admin: 08/21/17 08:42 Dose: 20 mg General: Alert, Cooperative, No acute distress HEENT: Atraumatic, PERRLA, EOMI Neck: Supple, JVD Cardiovascular: Regular rate, Normal S1, Normal S2 Lungs: Clear to auscultation Abdomen: Bowel sounds, Soft Assessment/Plan - Problem List Patient Problems: All Active Problems LEFT EAR PAIN WITH BLOODY DRAINAGE (Acute) - Assessment Assessment: BT Sz Sz DO per hx AME R foot wound infection with Pseudomonas [place] and Staph Aureus MDRO ESBL UTI Dsylipid R medial malleolus ulcer Possible Left ear otitis - Plan Plan: Dr. Bear following. Pt seen and eval. More calm and collected today. Still refusing care at times. Has IV access now, as anesthesia insert central line on 08/17/16. Sx and wound care seeing her for R medial malleolus ulcer. Pt refused the US of LE. No sz last night. On IV Meropenam for esbl uti. Added Vanco on 08/17/17 for the Staph. No n,v,d or cp. No pain. Added Cortisporin otic drops to left ear as pt still has pain at times. Looked in left ear again. There is no discharge or inflammation. Pt's DC was not carried out on 08/21/17 as SNF said there was not bed. Nutritional Asmnt/Malnutr-PDOC - Dietary Evaluation Malnutrition Findings (Please click <Entered> for more info): Nutritional Asmnt/Malnutrition Start: 08/17/17 14: 14 Text: Status: Complete Freq: Document 08/17/17 14:14 ROBYN (Rec: 08/17/17 14:23 ROBYN [email or web address]) Nutritional Asmnt/Malnutrition Patient General Information Nutritional Screening High Risk Diagnosis GLENNY, CCHO Pertinent Medical Hx/Surgical Hx HTN, CAD, peripheral arterial disease, hyperlipidemia, CVA, seizure, peripheral neuropathy , constipation, GERD, unsteady gait, muscle weakness, left AKA, major depressive disorder Subjective Information Pt seen sleeping in bed at the time of visit. Spoke with RN, pt refused breakfast and lunch today, including meds. Per nurse note, pt had late dinner yesterday 08/16, consumed 90% of dinener with assist. Pertinent Medications viatmin C, calcium/vit D, nacl 0.9%, vancomycin Pertinent Labs 08/17 Na 140, K 4.2, Cl 107, Cr 13, Cr 0.6, Glucose 112 Ca 9. 6 Nutritional Hx/Data Height 1.55 m Height (Calculated Centimeters) 154.9 Current Weight (lbs) 64.41 kg Weight (Calculated Kilograms) 64.4 Weight (Calculated Grams) 42564.1 [place] Body Weight 105 % [place] Body Weight 135 Body Mass Index (BMI) 26.8 Weight Status Overweight GI Symptoms GI Symptoms None Last BM none Food Allergies Yes: shellfish Skin Integrity/Comment: non-pitting edema to right lower extremity pressure area to right loer leg and right dorsal foot, decubitus ulceration to right lower lateral foot Estimated Nutritional Goals BEE in Kcals: Using Current wt Calories/Kcals/Kg 25-30 Kcals Calculated 9170-9708 considering bedbound Protein: Using Current wt Protein g/k-1.2 Protein Calculated 65-78 Fluid: ml 0955-3880 Nutritional Problem 1. Problem Problem increased nutrition needs ( calorie and protein) Etiology increased metabolic demand for wound healing Signs/Symptoms: pressure area and decubitus ulceration Malnutrition Alert Protein-Calorie Malnutrition N/A Is there a minimum of two criteria No selected? Query Text:Check all the applicable criteria. A minimum of two criteria are recommended for diagnosis of either severe or non-severe malnutrition. Intervention/Recommendation Comments 1. Continue with current diet as ordered. If PO intake continue low, MD to consider appetite stimulant. 2. Monitor PO intake, wt, labs and skin integrity 3. F/U as high risk in 2-3 days, 08/19-08/20 Expected Outcomes/Goals Expected Outcomes/Goals 1. PO intake to meet at least 75% of nutritional needs. 2. Wt stability, wound to heal , labs to approach WNL.
[2017-08-22 08:22] LABS: ANION GAP 9.4 (7.0-16.0); BUN - UREA NITROGEN 16 mg/dL (7-25); CALCIUM SERUM 9.4 mg/dL (8.6-10.3); CARBON DIOXIDE 30.4 mEq/L (21.0-31.0); CHLORIDE 104 mEq/L (98-107); CREATININE - SERUM 0.5 mg/dL (0.6-1.2); GFR AFRICAN-AMERICAN > 60.0 ml/min (>90); GFR NON AFRICAN-AMERICAN > 60.0 ml/min; GLUCOSE 102 mg/dL (70-105); POTASSIUM SERUM 3.8 mEq/L (3.5-5.1); SODIUM SERUM 140 mEq/L (136-145)
[2017-08-22] MEDS: Lactulose 10 Gm/15 mL 30mL UDC PO SCH (09:56)
[2017-08-22] MEDS: Lactobacillus Rhamnosus GG 15 Billion CFU CAP.SPRINK PO SCH (09:56)
[2017-08-22] MEDS: Multivitamin w/ Minerals Tab PO SCH (09:56)
[2017-08-22] MEDS: Calcium Carb/Vit D 500 mg/200 U Tab PO SCH ×2 (09:58→18:24)
--- NOTE | 2017-08-22 10:26 | General Progress Note ---
Subjective - Review of Systems Service Date: 08/22/17 Events since last encounter: left IJ central line flushed, open, slight leak Objective - Results Result Diagrams: 08/22/17 07:45 08/22/17 07:45 Recent Labs: Laboratory Last Values WBC 5.2 Th/cmm (4.8-10.8) D 08/22/17 07:45 RBC 3.53 Mil/cmm (3.80-5.10) L 08/22/17 07:45 Hgb 10.6 gm/dL (12-16) L 08/22/17 07:45 Hct 30.9 % (41.0-60) L 08/22/17 07:45 MCV 87.5 fl (81-100) 08/22/17 07:45 MCH 30.0 pg (27.0-31.0) 08/22/17 07:45 MCHC Differential 34.3 pg (28.0-36.0) 08/22/17 07:45 RDW 15.6 % (11.5-20.0) 08/22/17 07:45 Plt Count 154 Th/cmm (150-400) 08/22/17 07:45 MPV 7.7 fl 08/22/17 07:45 Neutrophils % 57.9 % (40.0-80.0) 08/22/17 07:45 Lymphocytes % 25.9 % (20.0-50.0) 08/22/17 07:45 Monocytes % 6.1 % (2.0-10.0) 08/22/17 07:45 Eosinophils % 8.5 % (0.0-5.0) H 08/22/17 07:45 Basophils % 1.6 % (0.0-2.0) 08/22/17 07:45 Sodium 140 mEq/L (136-145) 08/22/17 07:45 Potassium 3.8 mEq/L (3.5-5.1) 08/22/17 07:45 Chloride 104 mEq/L (98-107) 08/22/17 07:45 Carbon Dioxide 30.4 mEq/L (21.0-31.0) 08/22/17 07:45 Anion Gap 9.4 (7.0-16.0) 08/22/17 07:45 BUN 16 mg/dL (7-25) 08/22/17 07:45 Creatinine 0.5 mg/dL (0.6-1.2) L 08/22/17 07:45 Est GFR ( Amer) > 60.0 ml/min (>90) 08/22/17 07:45 Est GFR (Non-Af Amer) > 60.0 ml/min 08/22/17 07:45 BUN/Creatinine Ratio 32.0 08/22/17 07:45 Glucose 102 mg/dL (70-105) 08/22/17 07:45 POC Glucose 99 MG/DL (70 - 105) 08/13/17 21:50 Calcium 9.4 mg/dL (8.6-10.3) 08/22/17 07:45 Total Bilirubin 0.2 mg/dL (0.3-1.0) L 08/12/17 15:33 AST 15 U/L (13-39) 08/12/17 15:33 ALT 9 U/L (7-52) 08/12/17 15:33 Alkaline Phosphatase 173 U/L (34-104) H 08/12/17 15:33 Creatine Kinase 32 U/L (30-223) 08/12/17 15:33 Troponin I 0.01 ng/mL (0.01-0.05) 08/12/17 15:33 B-Natriuretic Peptide 25.1 pg/mL (5.0-100.0) 08/12/17 15:33 Total Protein 7.0 gm/dL (6.0-8.3) 08/12/17 15:33 Albumin 3.8 gm/dL (3.7-5.3) 08/12/17 15:33 Globulin 3.2 gm/dL 08/12/17 15:33 Albumin/Globulin Ratio 1.2 (1.0-1.8) 08/12/17 15:33 Urine Source CATH 08/12/17 17:00 Urine Color YELLOW 08/12/17 17:00 Urine Clarity CLOUDY (CLEAR) H 08/12/17 17:00 Urine pH 6.0 (4.6 - 8.0) 08/12/17 17:00 Ur Specific [place] 1.010 (1.005-1.030) 08/12/17 17:00 Urine Protein TRACE mg/dL (NEGATIVE) 08/12/17 17:00 Urine Glucose (UA) NEGATIVE mg/dL (NEGATIVE) 08/12/17 17:00 Urine Clinitest NEGATIVE mg/dL (NEGATIVE) 08/12/17 17:00 Urine Ketones NEGATIVE mg/dL (NEGATIVE) 08/12/17 17:00 Urine Blood MODERATE (NEGATIVE) H 08/12/17 17:00 Urine Nitrate POSITIVE (NEGATIVE) H 08/12/17 17:00 Urine Bilirubin NEGATIVE (NEGATIVE) 08/12/17 17:00 Urine Ictotest NEGATIVE (NEGATIVE) 08/12/17 17:00 Urine Urobilinogen 0.2 E.U./dL (0.2 - 1.0) 08/12/17 17:00 Ur Leukocyte Esterase LARGE (NEGATIVE) H 08/12/17 17:00 Urine RBC 5-10 /hpf (0-5) H 08/12/17 17:00 Urine WBC >100 /hpf (0-5) H 08/12/17 17:00 Ur Epithelial Cells MODERATE /lpf (FEW) 08/12/17 17:00 Urine Bacteria MANY /hpf (NONE SEEN) H 08/12/17 17:00 Vancomycin Trough 14.7 ug/mL (10-20) 08/22/17 07:45 Phenytoin 7.0 ug/ml (10.0-20.0) L 08/18/17 08:15 Lamotrigine None Detected ug/mL (2.0-20.0) 08/15/17 15:44 Levetiracetam 21.7 ug/mL (10.0-40.0) 08/15/17 15:44 Phenobarbital 31.0 ug/ml (10-40.0) 08/12/17 15:33 - Physical Exam Vitals and I&O: Vital Signs Temp 98.7 F 08/22/17 08:00 Pulse 71 08/22/17 08:00 Resp 18 08/22/17 08:00 BP 157/73 08/22/17 08:00 Pulse Ox 96 08/22/17 08:00 Intake & Output 08/21/17 08/22/17 08/22/17 18:59 06:59 18:59 Intake Total 1150 Output Total 1650 Balance -500 Weight (lbs) 65.862 kg Intake: Intake, IV Amount 250 Vancomycin HCl 750 mg In 250 Sodium Chloride 0.9% 250 ml @ 167 mls/hr IV Q12HR@ 0900,2100 [facility] Rx#: [id number] Oral 900 Output: Urine 1650 Other: # Bowel Movements 1 Stool Characteristics Formed Brown Active Medications: Current Medications Acetaminophen (Tylenol) 650 mg PO Q6HR PRN PRN Reason: Pain (Mild) Stop: 10/12/17 12:05 Acetaminophen/Hydrocodone Bitart ([place] 5mg/325mg) 1 tab PO Q4H PRN PRN Reason: mod pain Stop: 10/12/17 11:38 Last Admin: 08/20/17 22:04 Dose: 1 tab Ascorbic Acid (Vitamin C) 500 mg PO BID [facility] Stop: 10/12/17 16:59 Last Admin: 08/22/17 09:58 Dose: 500 mg Atorvastatin Calcium (Lipitor) 20 mg PO HS [facility] Stop: 10/12/17 20:59 Last Admin: 08/21/17 22:33 Dose: 20 mg Calcium/Vitamin D (Oscal W/Vitamin D) 1 tab PO BID [facility] Stop: 10/12/17 16:59 Last Admin: 08/22/17 09:58 Dose: 1 tab Divalproex Sodium (Depakote Er) 500 mg PO BID [facility] PRN Reason: Protocol Stop: 10/20/17 09:29 Last Admin: 08/22/17 09:58 Dose: 500 mg Duloxetine HCl (Cymbalta) 60 mg PO DAILY [facility] PRN Reason: Protocol Stop: 10/13/17 08:59 Last Admin: 08/22/17 10:07 Dose: 60 mg Gabapentin (Neurontin) 300 mg PO TID [facility] Stop: 10/12/17 13:59 Last Admin: 08/22/17 09:56 Dose: 300 mg Vancomycin HCl 750 mg/ Sodium (Chloride) 250 mls @ 167 mls/hr IV Q12HR@0900, 2100 [facility] Stop: 08/23/17 10:59 Last Admin: 08/21/17 22:49 Dose: Not Given Meropenem 500 mg/ Sodium (Chloride) 50 mls @ 100 mls/hr IV Q8HR [facility] Stop: 08/23/17 14:13 Last Admin: 08/22/17 06:39 Dose: 100 mls/hr Lacosamide (Vimpat) 100 mg PO BID [facility] Stop: 10/14/17 16:59 Last Admin: 08/22/17 09:58 Dose: 100 mg Lactobacillus Rhamnosus (Culturelle 15b) 1 each PO DAILY [facility] Stop: 10/20/17 08:59 Last Admin: 08/22/17 09:56 Dose: 1 each Lactulose (Cephulac) 20 gm PO DAILY [facility] Stop: 10/13/17 08:59 Last Admin: 08/22/17 09:56 Dose: 20 gm Lamotrigine (Lamictal) 50 mg PO DAILY [facility] PRN Reason: Protocol Stop: 10/13/17 08:59 Last Admin: 08/22/17 09:58 Dose: 50 mg Levetiracetam (Keppra) 1,000 mg PO BID [facility] Stop: 10/18/17 09:59 Last Admin: 08/22/17 09:58 Dose: 1,000 mg Miscellaneous (Probiotic Screen) 1 [facility] PRN PRN PRN Reason: PROTOCOL Stop: 10/19/17 16:29 Miscellaneous (Vancomycin Iv Per Pharmacy) 1 [facility] PRN PRN PRN Reason: PROTOCOL Stop: 08/23/17 14:13 Montelukast Sodium (Singulair) 10 mg PO DAILY [facility] Stop: 10/13/17 08:59 Last Admin: 08/22/17 09:57 Dose: 10 mg Neomycin/Polymyxin/Hydrocortisone (Cortisporin Otic Soln) 4 drop LEFT EAR QID [facility] Stop: 10/18/17 12:59 Last Admin: 08/21/17 22:52 Dose: Not Given Phenobarbital (Phenobarbital) 64.8 mg PO TID [facility] Stop: 10/12/17 08:59 Last Admin: 08/22/17 09:57 Dose: 64.8 mg Phenytoin (Dilantin) 200 mg PO BID [facility] Stop: 10/18/17 09:59 Last Admin: 08/22/17 09:57 Dose: 200 mg Rivaroxaban (Xarelto) 20 mg PO QDPC [facility] Stop: 10/13/17 08:29 Last Admin: 08/22/17 10:07 Dose: 20 mg General: Alert, Cooperative, No acute distress HEENT: Atraumatic, PERRLA, EOMI Neck: Supple, JVD Cardiovascular: Regular rate, Normal S1, Normal S2 Lungs: Clear to auscultation Abdomen: Bowel sounds, Soft Assessment/Plan - Problem List Patient Problems: All Active Problems LEFT EAR PAIN WITH BLOODY DRAINAGE (Acute) Nutritional Asmnt/Malnutr-PDOC - Dietary Evaluation Malnutrition Findings (Please click <Entered> for more info): Nutritional Asmnt/Malnutrition Start: 08/17/17 14: 14 Text: Status: Complete Freq: Document 08/17/17 14:14 ROBYN (Rec: 08/17/17 14:23 EDWIN [email or web address]) Nutritional Asmnt/Malnutrition Patient General Information Nutritional Screening High Risk Diagnosis GLENNY, CCHO Pertinent Medical Hx/Surgical Hx HTN, CAD, peripheral arterial disease, hyperlipidemia, CVA, seizure, peripheral neuropathy , constipation, GERD, unsteady gait, muscle weakness, left AKA, major depressive disorder Subjective Information Pt seen sleeping in bed at the time of visit. Spoke with RN, pt refused breakfast and lunch today, including meds. Per nurse note, pt had late dinner yesterday 08/16, consumed 90% of dinener with assist. Pertinent Medications viatmin C, calcium/vit D, nacl 0.9%, vancomycin Pertinent Labs 08/17 Na 140, K 4.2, Cl 107, Cr 13, Cr 0.6, Glucose 112 Ca 9. 6 Nutritional Hx/Data Height 1.55 m Height (Calculated Centimeters) 154.9 Current Weight (lbs) 64.41 kg Weight (Calculated Kilograms) 64.4 Weight (Calculated Grams) 03577.1 [place] Body Weight 105 % [place] Body Weight 135 Body Mass Index (BMI) 26.8 Weight Status Overweight GI Symptoms GI Symptoms None Last BM none Food Allergies Yes: shellfish Skin Integrity/Comment: non-pitting edema to right lower extremity pressure area to right loer leg and right dorsal foot, decubitus ulceration to right lower lateral foot Estimated Nutritional Goals BEE in Kcals: Using Current wt Calories/Kcals/Kg 25-30 Kcals Calculated 2805-9114 considering bedbound Protein: Using Current wt Protein g/k-1.2 Protein Calculated 65-78 Fluid: ml 4090-8277 Nutritional Problem 1. Problem Problem increased nutrition needs ( calorie and protein) Etiology increased metabolic demand for wound healing Signs/Symptoms: pressure area and decubitus ulceration Malnutrition Alert Protein-Calorie Malnutrition N/A Is there a minimum of two criteria No selected? Query Text:Check all the applicable criteria. A minimum of two criteria are recommended for diagnosis of either severe or non-severe malnutrition. Intervention/Recommendation Comments 1. Continue with current diet as ordered. If PO intake continue low, MD to consider appetite stimulant. 2. Monitor PO intake, wt, labs and skin integrity 3. F/U as high risk in 2-3 days, 08/19-08/20 Expected Outcomes/Goals Expected Outcomes/Goals 1. PO intake to meet at least 75% of nutritional needs. 2. Wt stability, wound to heal , labs to approach WNL.
[2017-08-22] MEDS: Cortisporin Otic Soln 10mL Bottle LEFT EAR SCH ×4 (13:00→20:47)
[2017-08-22] MEDS: Hydrocodone/APAP 5mg/325mg Tab PO PRN ×2 (18:18→23:27)
[2017-08-22] MEDS: Atorvastatin Calcium 10 MG TAB PO SCH (20:47)
[2017-08-23] MEDS: Meropenem 500 MG in Sodium Chloride 0.9% 50 ML IV SCH ×2 (04:12→13:22)
[2017-08-23] MEDS: Lactulose 10 Gm/15 mL 30mL UDC PO SCH (08:24)
[2017-08-23] MEDS: Multivitamin w/ Minerals Tab PO SCH (08:25)
[2017-08-23] MEDS: Lactobacillus Rhamnosus GG 15 Billion CFU CAP.SPRINK PO SCH (08:25)
[2017-08-23] MEDS: Calcium Carb/Vit D 500 mg/200 U Tab PO SCH ×2 (08:26→16:35)
[2017-08-23] MEDS: Cortisporin Otic Soln 10mL Bottle LEFT EAR SCH ×4 (08:31→16:35)
--- NOTE | 2017-08-23 09:08 | General Progress Note ---
Subjective - Review of Systems Service Date: 08/23/17 Subjective: Pt seen and eval. More calm and collected today. She's been non complaint with care and meds at times. Has IV access now, as anesthesia inserted central line on 08/17/16. However, central line has been leaking. Sx and wound care seeing her for R medial malleolus ulcer. No sz last night. On IV Meropenam for esbl uti. Added Vanco on 08/17/17 for the Staph. No n,v,d or cp. No pain. Pt's DC was not carried out on 08/21/17 as SNF said there was not bed. Pt used to be on hospice. However, had kept her full code, and she ended up in hospital due to decline. Now, pt and family agreeable to resume hospice care. Objective - Results Result Diagrams: 08/22/17 07:45 08/22/17 07:45 Recent Labs: Laboratory Last Values WBC 5.2 Th/cmm (4.8-10.8) D 08/22/17 07:45 RBC 3.53 Mil/cmm (3.80-5.10) L 08/22/17 07:45 Hgb 10.6 gm/dL (12-16) L 08/22/17 07:45 Hct 30.9 % (41.0-60) L 08/22/17 07:45 MCV 87.5 fl (81-100) 08/22/17 07:45 MCH 30.0 pg (27.0-31.0) 08/22/17 07:45 MCHC Differential 34.3 pg (28.0-36.0) 08/22/17 07:45 RDW 15.6 % (11.5-20.0) 08/22/17 07:45 Plt Count 154 Th/cmm (150-400) 08/22/17 07:45 MPV 7.7 fl 08/22/17 07:45 Neutrophils % 57.9 % (40.0-80.0) 08/22/17 07:45 Lymphocytes % 25.9 % (20.0-50.0) 08/22/17 07:45 Monocytes % 6.1 % (2.0-10.0) 08/22/17 07:45 Eosinophils % 8.5 % (0.0-5.0) H 08/22/17 07:45 Basophils % 1.6 % (0.0-2.0) 08/22/17 07:45 Sodium 140 mEq/L (136-145) 08/22/17 07:45 Potassium 3.8 mEq/L (3.5-5.1) 08/22/17 07:45 Chloride 104 mEq/L (98-107) 08/22/17 07:45 Carbon Dioxide 30.4 mEq/L (21.0-31.0) 08/22/17 07:45 Anion Gap 9.4 (7.0-16.0) 08/22/17 07:45 BUN 16 mg/dL (7-25) 08/22/17 07:45 Creatinine 0.5 mg/dL (0.6-1.2) L 08/22/17 07:45 Est GFR ( Amer) > 60.0 ml/min (>90) 08/22/17 07:45 Est GFR (Non-Af Amer) > 60.0 ml/min 08/22/17 07:45 BUN/Creatinine Ratio 32.0 08/22/17 07:45 Glucose 102 mg/dL (70-105) 08/22/17 07:45 POC Glucose 99 MG/DL (70 - 105) 08/13/17 21:50 Calcium 9.4 mg/dL (8.6-10.3) 08/22/17 07:45 Total Bilirubin 0.2 mg/dL (0.3-1.0) L 08/12/17 15:33 AST 15 U/L (13-39) 08/12/17 15:33 ALT 9 U/L (7-52) 08/12/17 15:33 Alkaline Phosphatase 173 U/L (34-104) H 08/12/17 15:33 Creatine Kinase 32 U/L (30-223) 08/12/17 15:33 Troponin I 0.01 ng/mL (0.01-0.05) 08/12/17 15:33 B-Natriuretic Peptide 25.1 pg/mL (5.0-100.0) 08/12/17 15:33 Total Protein 7.0 gm/dL (6.0-8.3) 08/12/17 15:33 Albumin 3.8 gm/dL (3.7-5.3) 08/12/17 15:33 Globulin 3.2 gm/dL 08/12/17 15:33 Albumin/Globulin Ratio 1.2 (1.0-1.8) 08/12/17 15:33 Urine Source CATH 08/12/17 17:00 Urine Color YELLOW 08/12/17 17:00 Urine Clarity CLOUDY (CLEAR) H 08/12/17 17:00 Urine pH 6.0 (4.6 - 8.0) 08/12/17 17:00 Ur Specific [place] 1.010 (1.005-1.030) 08/12/17 17:00 Urine Protein TRACE mg/dL (NEGATIVE) 08/12/17 17:00 Urine Glucose (UA) NEGATIVE mg/dL (NEGATIVE) 08/12/17 17:00 Urine Clinitest NEGATIVE mg/dL (NEGATIVE) 08/12/17 17:00 Urine Ketones NEGATIVE mg/dL (NEGATIVE) 08/12/17 17:00 Urine Blood MODERATE (NEGATIVE) H 08/12/17 17:00 Urine Nitrate POSITIVE (NEGATIVE) H 08/12/17 17:00 Urine Bilirubin NEGATIVE (NEGATIVE) 08/12/17 17:00 Urine Ictotest NEGATIVE (NEGATIVE) 08/12/17 17:00 Urine Urobilinogen 0.2 E.U./dL (0.2 - 1.0) 08/12/17 17:00 Ur Leukocyte Esterase LARGE (NEGATIVE) H 08/12/17 17:00 Urine RBC 5-10 /hpf (0-5) H 08/12/17 17:00 Urine WBC >100 /hpf (0-5) H 08/12/17 17:00 Ur Epithelial Cells MODERATE /lpf (FEW) 08/12/17 17:00 Urine Bacteria MANY /hpf (NONE SEEN) H 08/12/17 17:00 Vancomycin Trough 14.7 ug/mL (10-20) 08/22/17 07:45 Phenytoin 7.0 ug/ml (10.0-20.0) L 08/18/17 08:15 Lamotrigine None Detected ug/mL (2.0-20.0) 08/15/17 15:44 Levetiracetam 21.7 ug/mL (10.0-40.0) 08/15/17 15:44 Phenobarbital 31.0 ug/ml (10-40.0) 08/12/17 15:33 - Physical Exam Vitals and I&O: Vital Signs Temp 98.4 F 08/23/17 04:00 Pulse 74 08/23/17 07:58 Resp 18 08/23/17 07:58 BP 148/72 08/23/17 04:00 Pulse Ox 96 08/23/17 07:58 Intake & Output 08/22/17 08/23/17 08/23/17 18:59 06:59 18:59 Intake Total 700 Output Total 1730 Balance -1030 Weight (lbs) 65.771 kg 65.771 kg Intake: Oral 700 Output: Urine 1730 Other: # Voids 8 # Bowel Movements 0 Stool Characteristics Soft Formed Active Medications: Current Medications Acetaminophen (Tylenol) 650 mg PO Q6HR PRN PRN Reason: Pain (Mild) Stop: 10/12/17 12:05 Acetaminophen/Hydrocodone Bitart ([place] 5mg/325mg) 1 tab PO Q4H PRN PRN Reason: mod pain Stop: 10/12/17 11:38 Last Admin: 08/22/17 23:27 Dose: 1 tab Ascorbic Acid (Vitamin C) 500 mg PO BID [facility] Stop: 10/12/17 16:59 Last Admin: 08/23/17 08:26 Dose: 500 mg Atorvastatin Calcium (Lipitor) 20 mg PO HS [facility] Stop: 10/12/17 20:59 Last Admin: 08/22/17 20:47 Dose: 20 mg Calcium/Vitamin D (Oscal W/Vitamin D) 1 tab PO BID [facility] Stop: 10/12/17 16:59 Last Admin: 08/23/17 08:26 Dose: 1 tab Divalproex Sodium (Depakote Er) 500 mg PO BID [facility] PRN Reason: Protocol Stop: 10/20/17 09:29 Last Admin: 08/23/17 08:25 Dose: 500 mg Duloxetine HCl (Cymbalta) 60 mg PO DAILY [facility] PRN Reason: Protocol Stop: 10/13/17 08:59 Last Admin: 08/23/17 08:25 Dose: 60 mg Gabapentin (Neurontin) 300 mg PO TID [facility] Stop: 10/12/17 13:59 Last Admin: 08/23/17 08:25 Dose: 300 mg Vancomycin HCl 750 mg/ Sodium (Chloride) 250 mls @ 167 mls/hr IV Q12HR@0900, 2100 [facility] Stop: 08/23/17 10:59 Last Admin: 08/22/17 20:48 Dose: Not Given Meropenem 500 mg/ Sodium (Chloride) 50 mls @ 100 mls/hr IV Q8HR [facility] Stop: 08/23/17 14:13 Last Admin: 08/23/17 04:12 Dose: Not Given Lacosamide (Vimpat) 100 mg PO BID [facility] Stop: 10/14/17 16:59 Last Admin: 08/23/17 08:26 Dose: 100 mg Lactobacillus Rhamnosus (Culturelle 15b) 1 each PO DAILY [facility] Stop: 10/20/17 08:59 Last Admin: 08/23/17 08:25 Dose: 1 each Lactulose (Cephulac) 20 gm PO DAILY [facility] Stop: 10/13/17 08:59 Last Admin: 08/23/17 08:24 Dose: 20 gm Lamotrigine (Lamictal) 50 mg PO DAILY [facility] PRN Reason: Protocol Stop: 10/13/17 08:59 Last Admin: 08/23/17 08:25 Dose: 50 mg Levetiracetam (Keppra) 1,000 mg PO BID [facility] Stop: 10/18/17 09:59 Last Admin: 08/23/17 08:25 Dose: 1,000 mg Miscellaneous (Probiotic Screen) 1 ea PRN PRN PRN Reason: PROTOCOL Stop: 10/19/17 16:29 Miscellaneous (Vancomycin Iv Per Pharmacy) 1 [facility] PRN PRN PRN Reason: PROTOCOL Stop: 08/23/17 14:13 Montelukast Sodium (Singulair) 10 mg PO DAILY [facility] Stop: 10/13/17 08:59 Last Admin: 08/23/17 08:26 Dose: 10 mg Neomycin/Polymyxin/Hydrocortisone (Cortisporin Otic Soln) 4 drop LEFT EAR QID [facility] Stop: 10/18/17 12:59 Last Admin: 08/23/17 08:31 Dose: 4 drop Phenobarbital (Phenobarbital) 64.8 mg PO TID [facility] Stop: 10/12/17 08:59 Last Admin: 08/23/17 08:25 Dose: 64.8 mg Phenytoin (Dilantin) 200 mg PO BID [facility] Stop: 10/18/17 09:59 Last Admin: 08/23/17 08:25 Dose: 200 mg Rivaroxaban (Xarelto) 20 mg PO QDPC [facility] Stop: 10/13/17 08:29 Last Admin: 08/23/17 08:25 Dose: 20 mg General: Cooperative, No acute distress HEENT: Atraumatic, PERRLA, EOMI Neck: Supple, JVD Cardiovascular: Regular rate, Normal S1, Normal S2 Lungs: Clear to auscultation Abdomen: Bowel sounds, Soft Assessment/Plan - Problem List Patient Problems: All Active Problems LEFT EAR PAIN WITH BLOODY DRAINAGE (Acute) - Assessment Assessment: BT Sz Sz DO per hx AME R foot wound infection with Pseudomonas [place] and Staph Aureus MDRO ESBL UTI Dsylipid R medial malleolus ulcer Possible Left ear otitis Fail to thrive - Plan Plan: Dr. Bear following. Pt seen and eval. More calm and collected today. Still refusing care at times. Has IV access now, as anesthesia insert central line on 08/17/16. Sx and wound care seeing her for R medial malleolus ulcer. Pt refused the US of LE. No sz last night. On IV Meropenam for esbl uti. Added Vanco on 08/17/17 for the Staph. No n,v,d or cp. No pain. Added Cortisporin otic drops to left ear as pt still has pain at times. Looked in left ear again. There is no discharge or inflammation. Pt's DC was not carried out on 08/21/17 as SNF said there was not bed. Pt used to be on hospice. She's been accepted again. Plan is to dc to snf on hospice once bed available. Nutritional Asmnt/Malnutr-PDOC - Dietary Evaluation Malnutrition Findings (Please click <Entered> for more info): Nutritional Asmnt/Malnutrition Start: 08/17/17 14: 14 Text: Status: Complete Freq: Document 08/17/17 14:14 ROBYN (Rec: 08/17/17 14:23 ROBYN [email or web address]) Nutritional Asmnt/Malnutrition Patient General Information Nutritional Screening High Risk Diagnosis GLENNY, CCHO Pertinent Medical Hx/Surgical Hx HTN, CAD, peripheral arterial disease, hyperlipidemia, CVA, seizure, peripheral neuropathy , constipation, GERD, unsteady gait, muscle weakness, left AKA, major depressive disorder Subjective Information Pt seen sleeping in bed at the time of visit. Spoke with RN, pt refused breakfast and lunch today, including meds. Per nurse note, pt had late dinner yesterday 08/16, consumed 90% of dinener with assist. Pertinent Medications viatmin C, calcium/vit D, nacl 0.9%, vancomycin Pertinent Labs 08/17 Na 140, K 4.2, Cl 107, Cr 13, Cr 0.6, Glucose 112 Ca 9. 6 Nutritional Hx/Data Height 1.55 m Height (Calculated Centimeters) 154.9 Current Weight (lbs) 64.41 kg Weight (Calculated Kilograms) 64.4 Weight (Calculated Grams) 60636.1 [place] Body Weight 105 % [place] Body Weight 135 Body Mass Index (BMI) 26.8 Weight Status Overweight GI Symptoms GI Symptoms None Last BM none Food Allergies Yes: shellfish Skin Integrity/Comment: non-pitting edema to right lower extremity pressure area to right loer leg and right dorsal foot, decubitus ulceration to right lower lateral foot Estimated Nutritional Goals BEE in Kcals: Using Current wt Calories/Kcals/Kg 25-30 Kcals Calculated [id number] considering bedbound Protein: Using Current wt Protein g/k-1.2 Protein Calculated 65-78 Fluid: ml 3426-7309 Nutritional Problem 1. Problem Problem increased nutrition needs ( calorie and protein) Etiology increased metabolic demand for wound healing Signs/Symptoms: pressure area and decubitus ulceration Malnutrition Alert Protein-Calorie Malnutrition N/A Is there a minimum of two criteria No selected? Query Text:Check all the applicable criteria. A minimum of two criteria are recommended for diagnosis of either severe or non-severe malnutrition. Intervention/Recommendation Comments 1. Continue with current diet as ordered. If PO intake continue low, MD to consider appetite stimulant. 2. Monitor PO intake, wt, labs and skin integrity 3. F/U as high risk in 2-3 days, 08/19-08/20 Expected Outcomes/Goals Expected Outcomes/Goals 1. PO intake to meet at least 75% of nutritional needs. 2. Wt stability, wound to heal , labs to approach WNL.
--- NOTE | 2017-08-24 16:26 | Discharge Summary ---
DATE OF DISCHARGE: 08/23/2017 ADDENDUM TO DISCHARGE SUMMARY The patient was finally discharged on 08/23/2017. She was transferred to facility on hospice. Apparently, the patient was agreeable to hospice care. Initially, I was told by the intermediate facility where she resided before that, the had her on hospice before, but he kept a full code; however, it appears that was a miscommunication on their part because we could not get hold of any . There are no family members present. The patient used to be on hospice before. She has significant failure to thrive along with being bedbound and diminished quality of life, along with not being alert. The hospice company finally found a place that would take her and she was discharged on 08/23/2017. Physical exam and labs as charted. PROGNOSIS: Fair to poor. DISPOSITION: As mentioned above. She was transferred to facility on hospice. JOB# [id number]
== END 2017-08-23 18:40 | disposition hospice, inpatient (51) | DRG 720 ==
LOC: ER 13:56 → TELE 20:30 → ICU 08-13 23:41 → MSI 08-21 19:35
PROVIDERS: ADMIT Family Medicine; ATTEND Family Medicine
PROC: 05H433Z Insertion of Infusion Device into Left Innominate Vein, Percutaneous Approach (ICD-10-PCS; principal; 2017-08-17)
PROC: 05PY33Z Removal of Infusion Device from Upper Vein, Percutaneous Approach (ICD-10-PCS; 2017-08-22)
DX: A41.9 Sepsis, unspecified organism (principal); G93.40 Encephalopathy, unspecified; F33.2 Major depressive disorder, recurrent severe without psychotic features; H70.002 Acute mastoiditis without complications, left ear; G62.9 Polyneuropathy, unspecified; I69.351 Hemiplegia and hemiparesis following cerebral infarction affecting right dominant side; H70.009 Acute mastoiditis without complications, unspecified ear; L97.419 Non-pressure chronic ulcer of right heel and midfoot with unspecified severity; T82.534A Leakage of infusion catheter, initial encounter; Z89.612 Acquired absence of left leg above knee; G40.909 Epilepsy, unspecified, not intractable, without status epilepticus; E78.5 Hyperlipidemia, unspecified; I10 Essential (primary) hypertension; K59.00 Constipation, unspecified; I25.10 Atherosclerotic heart disease of native coronary artery without angina pectoris; N39.0 Urinary tract infection, site not specified; J44.9 Chronic obstructive pulmonary disease, unspecified; H91.92 Unspecified hearing loss, left ear; I73.9 Peripheral vascular disease, unspecified; K21.9 Gastro-esophageal reflux disease without esophagitis; Y83.8 Other surgical procedures as the cause of abnormal reaction of the patient, or of later complication, without mention of misadventure at the time of the procedure; J30.9 Allergic rhinitis, unspecified; M62.81 Muscle weakness (generalized); B96.20 Unspecified Escherichia coli [E. coli] as the cause of diseases classified elsewhere; B95.61 Methicillin susceptible Staphylococcus aureus infection as the cause of diseases classified elsewhere; B96.5 Pseudomonas (aeruginosa) (mallei) (pseudomallei) as the cause of diseases classified elsewhere; H66.92 Otitis media, unspecified, left ear; F41.1 Generalized anxiety disorder; R62.7 Adult failure to thrive; Z74.01 Bed confinement status; Z86.718 Personal history of other venous thrombosis and embolism; Y92.89 Other specified places as the place of occurrence of the external cause; Z16.12 Extended spectrum beta lactamase (ESBL) resistance; Z88.1 Allergy status to other antibiotic agents; Z16.24 Resistance to multiple antibiotics; Z16.23 Resistance to quinolones and fluoroquinolones; Z88.8 Allergy status to other drugs, medicaments and biological substances; Z79.01 Long term (current) use of anticoagulants
CPT/HCPCS: 36415-UA; 70450-TC; 71045-TC; 80048-TC; 80053-TC; 80184-TC; 80185-TC; 80202-TC; 80299-90; 81001-TC; 82550-TC; 82948-90; 83880-TC; 84484-TC; 85025-TC; 87070-90; 87075-90; 87086-90; 87205-90; 93005; 93926-RT-TC; 93971-TC-RT; 94760; 96375; 96376; J0696; J1165; J1953; J1956; J2001; J2060; J2185; J2543; J3370; J7030; Z7610